=== PATIENT | female | born 1940 | race Asian ===

== ENCOUNTER 2018-08-27 05:13 | Day surgery (SDC) | payer BC ==
[2018-08-23 14:55] VITALS: BMI 22.1
[2018-08-27] MEDS ORDERED: ACETAMINOPHEN 1000 MG/100 ML VIAL (NON FORMULARY) IVPB ONE (12:49)
[2018-08-27] MEDS ORDERED: MIDAZOLAM HCL 2 MG/2 ML SINGLE DOSE VIAL ONE (12:53)
[2018-08-27] MEDS ORDERED: ceFAZolin SODIUM 1 GM VIAL IVPB ONE (12:54)
[2018-08-27] MEDS ORDERED: DEXTROSE 5%-0.45% SALINE 1,000 ML IV SCH (13:00)
[2018-08-27] MEDS ORDERED: IBUPROFEN 800 MG/8 ML IJ IVPB SCH (13:00)
[2018-08-27] MEDS ORDERED: KETOROLAC TROMETHAMINE 30 MG/1 ML VIAL ONE (13:17)
--- NOTE | 2018-08-27 15:37 | OP ---
DATE OF OPERATION: 08/27/2018 PREOPERATIVE DIAGNOSIS: Left renal calculus. POSTOPERATIVE DIAGNOSIS: Left renal calculus. PROCEDURE: Left extracorporeal shockwave lithotripsy. SURGEON: Chan Lainez MD ANESTHESIA: MAC. FINDINGS: A 1.6-cm stone, midpole, left kidney. PREOPERATIVE INDICATIONS: Patient a 78-year-old female who has cluster of stones in the left kidney measuring a total of 1.6 cm. She comes repair in the OR. DESCRIPTION OF PROCEDURE: Patient was brought to the OR, placed on the table in supine position, given general anesthesia and IV antibiotics. The stone was localized on fluoroscopy and ultrasound. The unit was then placed to optimally break the stone. shocks were applied to the kidney. Patient tolerated the procedure well. She was woken up. CHAN LAINEZ M.D. [id number]
[2018-08-27 15:44] VITALS: PULSE 72
[2018-08-27 15:49] VITALS: BP 140/66; TEMP 98
== END 2018-08-27 15:00 | disposition home or self-care (01) ==
LOC: JASU-SURG 05:13
PROVIDERS: ATTEND Urology
PROC: 0TF4XZZ Fragmentation in Left Kidney Pelvis, External Approach (ICD-10-PCS; principal; 2018-08-27 12:30)
DX: N20.0 Calculus of kidney (principal); I10 Essential (primary) hypertension; E11.9 Type 2 diabetes mellitus without complications; Z79.84 Long term (current) use of oral hypoglycemic drugs
CPT/HCPCS: 82962

== ENCOUNTER 2018-09-02 10:48 | Inpatient (IN) | payer BC, OTHER ==
--- NOTE | 2018-09-02 11:23 | PDOC ---
History of Present Illness - General Chief Complaint: SIRS, Suspected/Possible Stated Complaint: FEVER Time Seen by Provider: 09/02/18 11:23 History Source: Patient - History of Present Illness Initial Comments: 09/02/18 11:32 The patient is a 78 year old female with a PMH of NIDDM and palpitations who presents to our ED c/o fever and diarrhea. Patient states her fever has been presents since 08/28 following a lithotripsy procedure on 08/27. States her thermometer hasn't been working so she is unsure of her exact temperature. Has been intermittently taking Tylenol for fever. Also c/o 2 day h/o watery diarrhea. States she has 3-4 non-watery bowel movements. States she was prescribed Bactrim s/p lithotripsy which she started taking on 08/30. 10 point ROS is negative including no fevers/chills, chest pain, shortness of breath abdominal pain, dysuria/hematuria, numbness/tingling. Allergy: Floroquinolones (hives) Surgical: hysterectomy, appendectomy, cataracts Social: denies toxic habits PMD: Dr. Jim Park Past History - Past Medical History Allergies/Adverse Reactions: Allergies Allergy/AdvReac Type Severity Reaction Status Date / Time levofloxacin [From Levaquin] Allergy Intermediate Hives Verified 09/02/18 11:06 Home Medications: Ambulatory Orders Propranolol HCl 10 mg PO BID 09/06/15 Rosuvastatin Calcium [Crestor] 5 mg PO DAILY 09/06/15 Lutein 20 mg PO DAILY PRN 02/11/16 Metformin HCl [Glucophage] 500 mg PO BID 08/23/18 Sulfamethoxazole/Trimethoprim [Bactrim Ds Tablet] 1 each PO BID #20 tablet 08/29 Anemia: No Asthma: No Cardiac Disorders: Yes (PALPITATIONS) CVA: No COPD: No Diabetes: Yes (NIDDM) GI Disorders: No Disorders: Yes (KIDNEY STONE) HTN: Yes Hypercholesterolemia: Yes Kidney Stones: Yes Liver Disease: No Seizures: No Thyroid Disease: No - Surgical History Abdominal Surgery: No Appendectomy: Yes Cardiac Surgery: No Cholecystectomy: No Lung Surgery: No Neurologic Surgery: No Orthopedic Surgery: No - Suicide/Smoking/Psychosocial Hx Smoking History: Never smoked Have you smoked in the past 12 months: No Hx Alcohol Use: No Drug/Substance Use Hx: No Substance Use Type: None Review of Systems - Review of Systems Constitutional: Yes: Fever. No: Chills HEENTM: No: Blurred Vision, Double Vision Respiratory: No: Cough, Orthopnea, Shortness of Breath, Hemoptysis Cardiac (ROS): No: Chest Pain, Lightheadedness, Palpitations, Syncope ABD/GI: Yes: Diarrhea. No: Constipated, Nausea, Vomiting, Abdominal cramping : No: Burning, Dysuria *Physical Exam - Vital Signs Last Vital Signs Temp Pulse Resp BP Pulse Ox 99.1 F 101 H 16 166/70 99 09/02/18 11:06 09/02/18 11:06 09/02/18 11:06 09/02/18 11:06 09/02/18 11:06 - Physical Exam General Appearance: Yes: Nourished, Thin HEENT: positive: Normal Voice, Hearing Grossly Normal Neck: positive: Trachea midline, Supple Respiratory/Chest: positive: Lungs Clear, Normal Breath Sounds. negative: Labored Respiration, Rapid RR, Crackles, Wheezing Cardiovascular: positive: S1, S2. negative: Edema, JVD Vascular Pulses: Dorsalis-Pedis (R): 2+, Doralis-Pedis (L): 2+ Gastrointestinal/Abdominal: positive: Normal Bowel Sounds, Soft, Other (LLQ TTP on deep palpation.) Musculoskeletal: negative: CVA Tenderness (R), CVA Tenderness (L) Extremity: positive: Normal Capillary Refill, Normal Inspection Integumentary: positive: Normal Color, Dry, Warm Neurologic: positive: Fully Oriented, Alert ED Treatment Course - LABORATORY CBC & Chemistry Diagram: 09/02/18 12:11 09/02/18 12:11 Medical Decision Making - Medical Decision Making 09/02/18 11:49 89 year old female c/o subjective fever and diarrhea. H/o recent Bactrim use. Tachycardic (HR 101) @ presentation, other VS unremarkable. Given patient's clinical history and possible clinical course, adult ED sepsis work-up initiated. Frontal diagnosis: C. Diff colitis, other infectious colitis, less likely SBO, mesenteric ischemia. Will also obtain CT abdomen as patient has some roving TTP on deep palpation of lower abdominal quadrants and C Diff stool toxin.. Isolation precautions in place. 09/02/18 13:22 Lab significant for Na 126 Cr 2.7 (last Cr 1.1 as per EMR) IV NS hanging @ bedside; repeat Na @ 4 hour sinan 09/02/18 13:34 Case d/w Dr. Chandler (contact centre supervisor) - accepts patient for inpatient admission. Requests Dr. Melendez (ID) 09/02/18 16:04 Patient @ CT 09/02/18 16:52 Repeat CMP pending 09/02/18 17:14 CT abdomen shows 3 x 0.5 cm L obstructing calculus w/hydronephrosis, R hydro ( no obstructing stones), no SBO Patient resting comfortably, VSS *DC/Admit/Observation/Transfer Diagnosis at time of Disposition: Diarrhea - Discharge Dispostion Condition at time of disposition: Fair Decision to Admit order: Yes - Referrals - Patient Instructions - Post Discharge Activity
--- NOTE | 2018-09-02 11:28 | PDOC ---
Attending Attestation - HPI HPI: 09/02/18 14:08 The patient is a 78 year old female with a past medical history of recurrent renal stones, diabetes, palpitations, hysterectomy, appendectomy, and cataracts who presents to the emergency department for evaluation of fever and diarrhea. Patient reports persistent fever since her discharge after having a lithotripsy procedure on 08/27. She reports her doctor prescribed Bactrim the following day which result in symptoms of diarrhea. The patient denies chest pain, shortness of breath, headache, and dizziness. - Physicial Exam PE: 09/02/18 14:12 Vitals: Triage Vital signs reviewed General Appearance: no acute distress, well nourished well developed, Head: Atraumatic, normocephalic Neck: Supple Chest Wall: Nontender Cardiac: Regular rate and rhythm, no murmurs, no rubs, no gallops, Lungs: Clear to auscultation bilateral, good air movement bilaterally, Abdomen: (+)mild left lower quadrant tenderness to palpation. Extremities: Full range of motion to all extremities, no cyanosis, clubbing, or edema Skin: Warm and dry, no rashes or lesions, no petechiae Psych: normal mood, normal affect - Medical Decision Making 09/02/18 14:11 The patient is a 78 year old female with a past medical history of recurrent renal stones, diabetes, palpitations, hysterectomy, appendectomy, and cataracts who presents to the emergency department for evaluation of fever and diarrhea. Plan: CT abdomen Fluids <Barb Ambrose - Last Filed: 09/02/18 14:08> - Resident Resident Name: Yeimi Mosqueda - ED Attending Attestation I have performed the following: I have examined & evaluated the patient, The case was reviewed & discussed with the resident, I agree w/resident's findings & plan, Exceptions are as noted - Medical Decision Making Given left-sided abdominal pain a CAT scan abdomen pelvis was ordered. CT demonstrates kidney stone Given evidence of acute kidney injury and nephrolithiasis most likely obstruction with renal injury We will hydrate admit the hospital urology consult for further management. <Tu Thorpe - Last Filed: 09/06/18 02:01> Attestations - Attestations Documentation prepared by Barb Ambrose, acting as medical unit secretary for Tu Thorpe MD. <Barb Ambrose - Last Filed: 09/02/18 14:08>
[2018-09-02 12:22] LABS: BASO % 0.1 % (0-2.0); EOS % 0.1 % (0-4.5); LYMPH % 7.5 % (8-40); MCH 28.6 pg (25.7-33.7); MCHC 33.3 g/dl (32.0-36.0); MEAN PLT VOLUME 8.4 fl (7.5-11.1); MONO % 11.4 % (3.8-10.2); NEUT % 80.9 % (42.8-82.8); PLATELET COUNT 211 K/MM3 (134-434); RBC 3.84 M/mm3 (3.60-5.2); RDW 13.7 % (11.6-15.6); WHITE BLOOD COUNT 10.3 K/mm3 (4.0-10.0)
[2018-09-02 12:34] LABS: URINE APPEARANCE CLEAR; URINE BILIRUBIN NEGATIVE (<2.0 mg/dL); URINE COLOR STRAW; URINE GLUCOSE (UA) 1+ (NEGATIVE); URINE KETONE TRACE (NEGATIVE); URINE LEUK ESTERASE NEGATIVE (NEGATIVE); URINE NITRITE NEGATIVE (NEGATIVE); URINE PROTEIN NEGATIVE (NEGATIVE); URINE UROBILINOGEN NEGATIVE mg/dL (0.2-1.0)
[2018-09-02 12:36] LABS: INR 1.08 (0.83-1.09); PROTHROMBIN TIME (PATIENT) 12.8 SEC (9.7-13.0)
[2018-09-02 12:38] LABS: ACTIVATED PTT 32.4 SECONDS (25.2-36.5)
[2018-09-02 12:54] LABS: ALBUMIN 3.2 g/dl (3.4-5.0); ALK PHOS 105 U/L (45-117); ANION GAP 15 MMOL/L (8-16); BILIRUBIN,TOTAL 0.4 mg/dL (0.2-1); BLOOD UREA NITROGEN 39 mg/dL (7-18); CALCIUM 8.1 mg/dL (8.5-10.1); CHLORIDE 91 mmol/L (98-107); CO2 20 mmol/L (21-32); CREATININE 2.7 mg/dL (0.55-1.3); GLUCOSE,RANDOM 167 mg/dL (74-106); POTASSIUM 4.4 mmol/L (3.5-5.1); SGOT/AST 13 U/L (15-37); SGPT/ALT 19 U/L (13-61); SODIUM 126 mmol/L (136-145); TOT PROT 7.4 g/dl (6.4-8.2)
[2018-09-02] MEDS ORDERED: SODIUM CHLORIDE 0.9% 500 ML INFUS.BAG IV ONE ×2 (13:22→13:44)
--- NOTE | 2018-09-02 15:04 | EKG ---
Test Reason : Blood Pressure : / mmHG Vent. Rate : 099 BPM Atrial Rate : 099 BPM P-R Int : 148 ms QRS Dur : 074 ms QT Int : 358 ms P-R-T Axes : 019 060 049 degrees QTc Int : 459 ms NORMAL SINUS RHYTHM POSSIBLE LEFT ATRIAL ENLARGEMENT BORDERLINE ECG WHEN COMPARED WITH ECG OF 16-AUG-2018 13:52, NO SIGNIFICANT CHANGE WAS FOUND Confirmed by FRANCA DOUGLAS MD ([id number]) on 09/02/2018 3:04:43 PM Referred By: Confirmed By:FRANCA DOUGLAS MD
--- NOTE | 2018-09-02 15:26 | CON.ID ---
Consult Consult Specialty:: infectious diseases Reason for Consultation:: weakness,fever,dirrhoea,leukocytosis - History of Present Illness Chief Complaint: weakness,fever History of Present Illness: 78 year old female with a PMH of NIDDM and palpitations who presents to ED c/o fever and diarrhea. Patient states her fever has been presents since 08/28 following a lithotripsy procedure on 08/27. States her thermometer hasn't been working so she is unsure of her exact temperature. Has been intermittently taking Tylenol for fever. Also c/o 2 day h/o watery diarrhea. States she has 3-4 non-watery bowel movements. States she was prescribed Bactrim s/p lithotripsy which she started taking on 08/30. 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 History of Recent Travel: No Home Medications - Allergies Allergies/Adverse Reactions: Allergies Allergy/AdvReac Type Severity Reaction Status Date / Time levofloxacin [From Levaquin] Allergy Intermediate Hives Verified 09/02/18 11:06 - Home Medications Home Medications: Ambulatory Orders Propranolol HCl 10 mg PO BID 09/06/15 Rosuvastatin Calcium [Crestor] 5 mg PO DAILY 09/06/15 Lutein 20 mg PO DAILY PRN 02/11/16 Metformin HCl [Glucophage] 500 mg PO BID 08/23/18 Sulfamethoxazole/Trimethoprim [Bactrim Ds Tablet] 1 each PO BID #20 tablet 08/29 Family Disease History - Family Disease History Family Disease History: Other: Brother (Unknown cause?) Review of Systems - Review of Systems Constitutional: reports: Fever HENT: reports: No Symptoms Neck: reports: No Symptoms Cardiovascular: reports: No Symptoms Respiratory: reports: No Symptoms Gastrointestinal: reports: No Symptoms Genitourinary: reports: No Symptoms Musculoskeletal: reports: No Symptoms Integumentary: reports: No Symptoms Neurological: reports: No Symptoms Endocrine: reports: No Symptoms Hematology/Lymphatic: reports: No Symptoms Psychiatric: reports: No Symptoms Physical Exam Vital Signs: Vital Signs Temperature 98.9 F 09/02/18 12:11 Pulse Rate 103 H 09/02/18 14:20 Respiratory Rate 20 09/02/18 14:20 Blood Pressure 153/72 09/02/18 14:20 O2 Sat by Pulse Oximetry (%) 100 09/02/18 14:20 Constitutional: Yes: Well Nourished, No Distress, Calm Eyes: Yes: Conjunctiva Clear HENT: Yes: Atraumatic, Normocephalic Neck: Yes: Supple, Trachea Midline Cardiovascular: Yes: Regular Rate and Rhythm Respiratory: Yes: Regular, CTA Bilaterally Gastrointestinal: Yes: Normal Bowel Sounds, Soft Musculoskeletal: Yes: WNL Extremities: Yes: WNL Neurological: Yes: Alert, Oriented Psychiatric: Yes: Alert, Oriented Labs: CBC, BMP 09/02/18 12:11 09/02/18 12:11 Imaging - Results Chest X-ray: Report Reviewed, Image Reviewed Cat Scan: Report Reviewed, Image Reviewed Assessment/Plan Problem List - Problems (1) Diabetes Code(s): E11.9 - TYPE 2 DIABETES MELLITUS WITHOUT COMPLICATIONS (2) Fever Code(s): R50.9 - FEVER, UNSPECIFIED Qualifiers: Fever type: other (3) HTN (hypertension) Code(s): I10 - ESSENTIAL (PRIMARY) HYPERTENSION (4) Hyperlipemia Code(s): E78.5 - HYPERLIPIDEMIA, UNSPECIFIED 5 renal insufficiency plan will stop abx and watch her monitor creatinine hydration rest as per the team denies any dirrhoea
--- NOTE | 2018-09-02 15:35 | HP ---
Admitting History and Physical - Primary Care Physician PCP: Edwin Chandler - Admission History of Present Illness: 78 year old female with a PMH of NIDDM and palpitations who presents to our ED c /o fever and diarrhea. Patient states her fever has been presents since 08/28 following a lithotripsy procedure on 08/27. States her thermometer hasn't been working so she is unsure of her exact temperature. Has been intermittently taking Tylenol for fever. Also c/o 2 day h/o watery diarrhea. States she has 3-4 non-watery bowel movements. States she was prescribed Bactrim s/p lithotripsy which she started taking on 08/30. 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 History of Recent Travel: No Home Medications - Allergies Allergies/Adverse Reactions: Allergies Allergy/AdvReac Type Severity Reaction Status Date / Time levofloxacin [From Levaquin] Allergy Intermediate Hives Verified 09/02/18 11:06 - Home Medications Home Medications: Ambulatory Orders Propranolol HCl 10 mg PO BID 09/06/15 Rosuvastatin Calcium [Crestor] 5 mg PO DAILY 09/06/15 Lutein 20 mg PO DAILY PRN 02/11/16 Metformin HCl [Glucophage] 500 mg PO BID 08/23/18 Sulfamethoxazole/Trimethoprim [Bactrim Ds Tablet] 1 each PO BID #20 tablet 08/29 Family Disease History - Family Disease History Family Disease History: Other: Brother (Unknown cause?) Physical Examination Vital Signs: Vital Signs Temperature 98.9 F 09/02/18 12:11 Pulse Rate 103 H 09/02/18 14:20 Respiratory Rate 20 09/02/18 14:20 Blood Pressure 153/72 09/02/18 14:20 O2 Sat by Pulse Oximetry (%) 100 09/02/18 14:20 Constitutional: Yes: No Distress HENT: Yes: Atraumatic Neck: Yes: Supple Cardiovascular: Yes: Regular Rate and Rhythm Respiratory: Yes: CTA Bilaterally Gastrointestinal: Yes: Normal Bowel Sounds Extremities: Yes: WNL Edema: No Neurological: Yes: Alert, Oriented Labs: CBC, BMP 09/02/18 12:11 09/02/18 12:11 Problem List - Problems (1) Diabetes Assessment/Plan: elevated cr and low gfr have to hold metformin check bgms.. Code(s): E11.9 - TYPE 2 DIABETES MELLITUS WITHOUT COMPLICATIONS (2) Fever Code(s): R50.9 - FEVER, UNSPECIFIED Qualifiers: Fever type: other (3) HTN (hypertension) Code(s): I10 - ESSENTIAL (PRIMARY) HYPERTENSION (4) Hyperlipemia Assessment/Plan: on meds Code(s): E78.5 - HYPERLIPIDEMIA, UNSPECIFIED Assessment/Plan Laboratory Tests 09/02/18 09/02/18 09/02/18 12:11 12:11 12:11 WBC 10.3 H RBC 3.84 Hgb 11.0 Hct 33.0 D MCV 86.0 MCH 28.6 MCHC 33.3 RDW 13.7 Plt Count 211 D MPV 8.4 Absolute Neuts (auto) 8.3 H Neutrophils % 80.9 Lymphocytes % 7.5 L D Monocytes % 11.4 H Eosinophils % 0.1 D Basophils % 0.1 Nucleated RBC % 0 PT with INR 12.80 INR 1.08 PTT (Actin FS) 32.4 Sodium Potassium Chloride Carbon Dioxide Anion Gap BUN Creatinine Creat Clearance w eGFR Random Glucose Lactic Acid Calcium Total Bilirubin AST ALT Alkaline Phosphatase Troponin I Total Protein Albumin Urine Color Straw Urine Appearance Clear Urine pH 5.0 Ur Specific [place] 1.011 Urine Protein Negative Urine Glucose (UA) 1+ H Urine Ketones Trace H Urine Blood Negative Urine Nitrite Negative Urine Bilirubin Negative Urine Urobilinogen Negative Ur Leukocyte Esterase Negative 09/02/18 09/02/18 09/02/18 12:11 12:11 12:11 WBC RBC Hgb Hct MCV MCH MCHC RDW Plt Count MPV Absolute Neuts (auto) Neutrophils % Lymphocytes % Monocytes % Eosinophils % Basophils % Nucleated RBC % PT with INR INR PTT (Actin FS) Sodium 126 L Potassium 4.4 Chloride 91 L Carbon Dioxide 20 L Anion Gap 15 BUN 39 H Creatinine 2.7 H Creat Clearance w eGFR 17.13 Random Glucose 167 H Lactic Acid 1.0 Calcium 8.1 L Total Bilirubin 0.4 AST 13 L ALT 19 Alkaline Phosphatase 105 Troponin I < 0.02 Total Protein 7.4 Albumin 3.2 L Urine Color Urine Appearance Urine pH Ur Specific [place] Urine Protein Urine Glucose (UA) Urine Ketones Urine Blood Urine Nitrite Urine Bilirubin Urine Urobilinogen Ur Leukocyte Esterase Active Medications Generic Name Dose Route Start Last Admin Trade Name Freq PRN Reason Stop Dose Admin Acetaminophen 650 mg 09/02/18 15:36 Tylenol - PO Q6H PRN FEVER Non-Formulary Medication 20 mg 09/02/18 15:37 Lutein [Lutein] PO DAILY PRN vitamin for the eyes Propranolol HCl 10 mg 09/02/18 22:00 Inderal - PO BID ALESSANDRA Rosuvastatin Calcium 5 mg 09/02/18 22:00 Crestor - PO HS ALESSANDRA
[2018-09-02] MEDS ORDERED: PATIENT'S OWN MEDICATION (NON-FORMULARY) (Lutein [Lutein] 20 MG) PO PRN (15:37)
[2018-09-02 18:32] LABS: ALBUMIN 2.9 g/dl (3.4-5.0); ALK PHOS 99 U/L (45-117); ANION GAP 13 MMOL/L (8-16); BILIRUBIN,TOTAL 0.4 mg/dL (0.2-1); BLOOD UREA NITROGEN 34 mg/dL (7-18); CALCIUM 7.4 mg/dL (8.5-10.1); CHLORIDE 99 mmol/L (98-107); CO2 19 mmol/L (21-32); CREATININE 2.6 mg/dL (0.55-1.3); GLUCOSE,RANDOM 149 mg/dL (74-106); POTASSIUM 4.4 mmol/L (3.5-5.1); SGOT/AST 12 U/L (15-37); SGPT/ALT 17 U/L (13-61); SODIUM 131 mmol/L (136-145); TOT PROT 6.9 g/dl (6.4-8.2)
[2018-09-02] MEDS: SODIUM CHLORIDE 1,000 ML IV SCH (20:28)
[2018-09-02] MEDS ORDERED: metFORMIN HCL 500 MG TABLET (FP) PO SCH (22:00)
[2018-09-02] MEDS: ROSUVASTATIN CA 5 MG TABLET (FP) PO SCH (23:31)
[2018-09-03 06:02] LABS: BASO % 0.2 % (0-2.0); EOS % 0.4 % (0-4.5); HEMATOCRIT 30.6 % (32.4-45.2); HEMOGLOBIN 10.2 GM/dL (10.7-15.3); LYMPH % 7.5 % (8-40); MCHC 33.5 g/dl (32.0-36.0); MEAN CELL VOLUME 86.7 fl (80-96); MEAN PLT VOLUME 7.8 fl (7.5-11.1); MONO % 11.5 % (3.8-10.2); NEUT % 80.4 % (42.8-82.8); PLATELET COUNT 213 K/MM3 (134-434); RBC 3.53 M/mm3 (3.60-5.2); RDW 13.8 % (11.6-15.6); WHITE BLOOD COUNT 10.4 K/mm3 (4.0-10.0)
[2018-09-03 06:29] LABS: ALBUMIN 2.8 g/dl (3.4-5.0); ALK PHOS 94 U/L (45-117); ANION GAP 11 MMOL/L (8-16); BILIRUBIN,TOTAL 0.4 mg/dL (0.2-1); BLOOD UREA NITROGEN 31 mg/dL (7-18); CALCIUM 7.6 mg/dL (8.5-10.1); CHLORIDE 104 mmol/L (98-107); CO2 18 mmol/L (21-32); CREATININE 2.5 mg/dL (0.55-1.3); GLUCOSE,RANDOM 131 mg/dL (74-106); POTASSIUM 4.5 mmol/L (3.5-5.1); SGOT/AST 15 U/L (15-37); SGPT/ALT 19 U/L (13-61); SODIUM 133 mmol/L (136-145); TOT PROT 6.6 g/dl (6.4-8.2)
[2018-09-03] MEDS: SODIUM CHLORIDE 1,000 ML IV SCH ×2 (10:34→21:36)
--- NOTE | 2018-09-03 12:13 | PN ---
Progress Note, Physician History of Present Illness: patient stable doing well no new issues feels much better no dirrhoea - Current Medication List Current Medications: Active Medications Acetaminophen (Tylenol -) 650 mg PO Q6H PRN PRN Reason: FEVER Sodium Chloride (Normal Saline -) 1,000 mls @ 75 mls/hr IV [facility] Last Admin: 09/03/18 10:34 Dose: 75 mls/hr Non-Formulary Medication (Lutein [Lutein]) 20 mg PO DAILY PRN PRN Reason: vitamin for the eyes Propranolol HCl (Inderal -) 10 mg PO BID [facility] Last Admin: 09/03/18 10:34 Dose: 10 mg Rosuvastatin Calcium (Crestor -) 5 mg PO HS [facility] Last Admin: 09/02/18 23:31 Dose: 5 mg - Objective Vital Signs: Vital Signs Temperature 98.9 F 09/03/18 09:07 Pulse Rate 100 H 09/03/18 09:07 Respiratory Rate 20 09/03/18 09:07 Blood Pressure 138/75 09/03/18 09:07 O2 Sat by Pulse Oximetry (%) 100 09/03/18 04:47 Constitutional: Yes: No Distress, Calm Cardiovascular: Yes: Regular Rate and Rhythm Respiratory: Yes: Regular, CTA Bilaterally Gastrointestinal: Yes: Normal Bowel Sounds, Soft Musculoskeletal: Yes: WNL Extremities: Yes: WNL Neurological: Yes: Alert, Oriented Psychiatric: Yes: Alert, Oriented Labs: CBC, BMP 09/03/18 05:30 09/03/18 05:30 INR, PTT INR 1.08 (0.83-1.09) 09/02/18 12:11 - ....Imaging Cat Scan: Report Reviewed, Image Reviewed Assessment/Plan Problem List - Problems (1) Diabetes Code(s): E11.9 - TYPE 2 DIABETES MELLITUS WITHOUT COMPLICATIONS (2) Fever Code(s): R50.9 - FEVER, UNSPECIFIED Qualifiers: Fever type: other (3) HTN (hypertension) Code(s): I10 - ESSENTIAL (PRIMARY) HYPERTENSION (4) Hyperlipemia Code(s): E78.5 - HYPERLIPIDEMIA, UNSPECIFIED 5 renal insufficiency plan will continue monitoring off of abx cr rending down hydration rest as per the team denies any dirrhoea
--- NOTE | 2018-09-03 12:51 | CON.GU ---
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 History of Recent Travel: No Home Medications - Allergies Allergies/Adverse Reactions: Allergies Allergy/AdvReac Type Severity Reaction Status Date / Time levofloxacin [From Levaquin] Allergy Intermediate Hives Verified 09/02/18 11:06 - Home Medications Home Medications: Ambulatory Orders Propranolol HCl 10 mg PO BID 09/06/15 Rosuvastatin Calcium [Crestor] 5 mg PO DAILY 09/06/15 Lutein 20 mg PO DAILY PRN 02/11/16 Metformin HCl [Glucophage] 500 mg PO BID 08/23/18 Sulfamethoxazole/Trimethoprim [Bactrim Ds Tablet] 1 each PO BID #20 tablet 08/29 Family Disease History - Family Disease History Family Disease History: Other: Brother (Unknown cause?) Physical Exam- Vital Signs: Vital Signs Temperature 98.9 F 09/03/18 09:07 Pulse Rate 100 H 09/03/18 09:07 Respiratory Rate 20 09/03/18 09:07 Blood Pressure 138/75 09/03/18 09:07 O2 Sat by Pulse Oximetry (%) 100 09/03/18 04:47 Constitutional: Yes: Well Nourished, No Distress Eyes: Yes: Conjunctiva Clear HENT: Yes: WNL Respiratory: Yes: WNL Renal/: Yes: CVA Tenderness - Left External Genitalia: Yes: WNL, Vulvitis Musculoskeletal: Yes: WNL Extremities: Yes: WNL Labs: CBC, BMP 09/03/18 05:30 09/03/18 05:30
--- NOTE | 2018-09-03 12:57 | CON.CARD ---
Consult Consult Specialty:: Cardiology Referred by:: Dr. Chandler Reason for Consultation:: Cardiac evaluation - History of Present Illness Chief Complaint: Fever History of Present Illness: Patient is a 78 year old female of Pas[place] descent with underlying history of HTN, hypercholesterolemia and diabetes mellitus who presents with fever. She recently had lithotripsy for left kidney stone. She complains of palpitation for which she takes Inderal. She also complains of diarrhea. She denies shortness of breath or chest pain. She denies paroxysmal nocturnal dyspnea or orthopnea. She denies nausea or vomiting. She denies headache or lightheadedness. She is awake and alert and appears comfortable at this time. Denies prior syncope. 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 History of Recent Travel: No Home Medications - Allergies Allergies/Adverse Reactions: Allergies Allergy/AdvReac Type Severity Reaction Status Date / Time levofloxacin [From Levaquin] Allergy Intermediate Hives Verified 09/02/18 11:06 - Home Medications Home Medications: Ambulatory Orders Propranolol HCl 10 mg PO BID 09/06/15 Rosuvastatin Calcium [Crestor] 5 mg PO DAILY 09/06/15 Lutein 20 mg PO DAILY PRN 02/11/16 Metformin HCl [Glucophage] 500 mg PO BID 08/23/18 Sulfamethoxazole/Trimethoprim [Bactrim Ds Tablet] 1 each PO BID #20 tablet 08/29 Family Disease History - Family Disease History Family Disease History: Other: Brother (Unknown cause?) Review of Systems - Review of Systems Constitutional: reports: Chills, Fever Cardiovascular: reports: Palpitations. denies: Chest Pain, Shortness of Breath Respiratory: denies: Cough, Hemoptysis, Orthopnea, PND, SOB, SOB on Exertion Gastrointestinal: denies: Abdominal Pain, Constipation, Diarrhea, Melena, Nausea , Rectal Bleeding, Vomiting Genitourinary: denies: Dysuria, Hematuria Musculoskeletal: denies: Back Pain, Joint Pain Neurological: denies: Dizziness, Headache, Seizure, Syncope Vital Signs: Vital Signs Temperature 98.9 F 09/03/18 09:07 Pulse Rate 100 H 09/03/18 09:07 Respiratory Rate 20 09/03/18 09:07 Blood Pressure 138/75 09/03/18 09:07 O2 Sat by Pulse Oximetry (%) 100 09/03/18 04:47 Eyes: Yes: PERRL HENT: Yes: Atraumatic Neck: Yes: Supple Respiratory: Yes: CTA Bilaterally Gastrointestinal: Yes: Normal Bowel Sounds, Soft. No: Tenderness Cardiovascular: Yes: Regular Rate and Rhythm JVD: No Carotid Bruit: No PMI: Non-Displaced Heart Sounds: Yes: S1, S2 Murmur: No: Systolic Murmur, Diastolic Murmur Edema: No - Other Data Labs, Other Data: CBC, BMP 09/03/18 05:30 09/03/18 05:30 INR, PTT INR 1.08 (0.83-1.09) 09/02/18 12:11 Troponin, BNP 09/02/18 12:11 Troponin I < 0.02 Imaging - Results Chest X-ray: Report Reviewed (Unremarkable) EKG: Report Reviewed (NSR with LA enlargement) Assessment/Plan 1. Palpitations 2. HTN 3. Hypercholesterolemia 4. DM 5. Nephrolithiasis s/p lithotripsy 6. Acute on CKD 7. Hyponatremia PLAN: 1. Patient was advised to continue with current medical therapy including Inderal and Rosuvastatin 2. Echocardiography to assess LV/RV and valvular function 3. Hydration 4. Monitor renal function and electrolytes. Nephrology consultation 5. input noted Further plans are to follow Peter Beard MD
--- NOTE | 2018-09-03 16:03 | ECHO ---
Name: JARVIS ADAIR Exam:Adult Echocardiogram Study Date: 09/03/2018 02:42 PM Age: 78 yrs Reason For Study: Palpitations Height: 63 in Weight: 124 lb BSA: 1.6 m2 MMode/2D Measurements & Calculations IVSd: 0.85 cm Ao root diam: 2.7 cm LVIDd: 4.1 cm LA dimension: 3.5 cm LVIDs: 3.0 cm LVPWd: 0.78 cm EDV(Teich): 73.8 ml TAPSE: 1.8 cm ESV(Teich): 34.9 ml RV S Piyush: 18.7 cm/sec Doppler Measurements & Calculations MV E max piyush: 54.3 cm/sec Ao V2 max: 118.4 cm/sec MV A max piyush: 87.9 cm/sec Ao max P.6 mmHg MV E/A: 0.62 LV V1 max P.4 mmHg MR max piyush: 519.5 cm/sec LV V1 max: 77.1 cm/sec MR max P.2 mmHg TR max piyush: 269.3 cm/sec PI end-d piyush: 126.2 cm/sec TR max P.3 mmHg Med Peak E' Ipyush: 7.0 cm/sec Med E/e': 7.8 Lat Peak E' Piyush: 4.2 cm/sec Lat E/e': 13.0 Left Ventricle The left ventricular size, thickness and function are normal. LVEF = 60%. The transmitral spectral Do ppler flow pattern is suggestive of impaired LV relaxation. Right Ventricle The right ventricle is normal in size and function. Atria Normal left and right atrial size and function. Mitral Valve There is mild mitral valve thickening. There is mild mitral regurgitation. The mitral regurgitant jet is eccentrically directed. Tricuspid Valve The tricuspid valve is not well visualized, but is grossly normal. There is trace tricuspid regurgita tion. There is mild pulmonary hypertension. Right ventricular systolic pressure is elevated at 39 mmhg. Aortic Valve There is mild aortic sclerosis.;. Pulmonic Valve The pulmonic valve is not well seen, but is grossly normal. Mild pulmonic valvular regurgitation. Great Vessels The aortic root is normal size. Pericardium/Pleura There is no pericardial effusion. Interpretation Summary The left ventricular size, thickness and function are normal. LVEF = 60%. The right ventricle is normal in size and function. Normal left and right atrial size and function. There is mild aortic sclerosis.; There is mild mitral valve thickening. There is mild mitral regurgitation. There is mild pulmonary hypertension. Right ventricular systolic pressure is elevated at 39 mmhg. MD Megan Marinelli 09/03/2018 04:02 PM
--- NOTE | 2018-09-03 16:41 | PN ---
Progress Note, Physician History of Present Illness: feeling good - Current Medication List Current Medications: Active Medications Acetaminophen (Tylenol -) 650 mg PO Q6H PRN PRN Reason: FEVER Sodium Chloride (Normal Saline -) 1,000 mls @ 75 mls/hr IV [facility] Last Admin: 09/03/18 10:34 Dose: 75 mls/hr Non-Formulary Medication (Lutein [Lutein]) 20 mg PO DAILY PRN PRN Reason: vitamin for the eyes Propranolol HCl (Inderal -) 10 mg PO BID [facility] Last Admin: 09/03/18 10:34 Dose: 10 mg Rosuvastatin Calcium (Crestor -) 5 mg PO HS [facility] Last Admin: 09/02/18 23:31 Dose: 5 mg Trimethoprim/Sulfamethoxazole (Bactrim Ds -) 1 each PO BID [facility] - Objective Vital Signs: Vital Signs Temperature 99.3 F 09/03/18 15:06 Pulse Rate 94 H 09/03/18 15:06 Respiratory Rate 20 09/03/18 15:06 Blood Pressure 164/80 09/03/18 15:06 O2 Sat by Pulse Oximetry (%) 100 09/03/18 04:47 Constitutional: Yes: No Distress HENT: Yes: Atraumatic Neck: Yes: Supple Cardiovascular: Yes: Regular Rate and Rhythm Respiratory: Yes: CTA Bilaterally Gastrointestinal: Yes: Normal Bowel Sounds Extremities: Yes: WNL Edema: No Peripheral Pulses WNL: Yes Neurological: Yes: Alert, Oriented Labs: CBC, BMP 09/03/18 05:30 09/03/18 05:30 INR, PTT INR 1.08 (0.83-1.09) 09/02/18 12:11 Problem List - Problems (1) Diabetes Assessment/Plan: elevated cr and low gfr have to hold metformin check bgms.. Code(s): E11.9 - TYPE 2 DIABETES MELLITUS WITHOUT COMPLICATIONS (2) Fever Assessment/Plan: afebrile Code(s): R50.9 - FEVER, UNSPECIFIED Qualifiers: Fever type: other (3) HTN (hypertension) Code(s): I10 - ESSENTIAL (PRIMARY) HYPERTENSION Qualifiers: Hypertension type: essential hypertension Qualified Code(s): I10 - Essential (primary) hypertension (4) Hyperlipemia Assessment/Plan: on meds Code(s): E78.5 - HYPERLIPIDEMIA, UNSPECIFIED Qualifiers: Hyperlipidemia type: pure hypercholesterolemia Qualified Code(s): E78.00 - Pure hypercholesterolemia, unspecified; E78.0 - Pure hypercholesterolemia
[2018-09-03] MEDS: SULFAMETHOXAZOLE/TRIMETHOPRIM 800MG/160MG D.S. TABLET PO SCH (21:36)
[2018-09-03] MEDS: ROSUVASTATIN CA 5 MG TABLET (FP) PO SCH (21:36)
[2018-09-04] MEDS: SULFAMETHOXAZOLE/TRIMETHOPRIM 800MG/160MG D.S. TABLET PO SCH ×2 (09:31→21:26)
--- NOTE | 2018-09-04 10:43 | PN ---
Progress Note, Physician History of Present Illness: patient has developed a cold sore still feels a bit weak no other issues wbc was still on the higher side does nto feel too well running temp in 99 - Current Medication List Current Medications: Active Medications Acetaminophen (Tylenol -) 650 mg PO Q6H PRN PRN Reason: FEVER Sodium Chloride (Normal Saline -) 1,000 mls @ 75 mls/hr IV ASDIR [facility] Last Admin: 09/03/18 21:36 Dose: 75 mls/hr Ceftriaxone Sodium 1 gm/ (Dextrose) 100 mls @ 200 mls/hr IVPB DAILY [facility]; Protocol Non-Formulary Medication (Lutein [Lutein]) 20 mg PO DAILY PRN PRN Reason: vitamin for the eyes Propranolol HCl (Inderal -) 10 mg PO BID [facility] Last Admin: 09/04/18 09:31 Dose: 10 mg Rosuvastatin Calcium (Crestor -) 5 mg PO HS [facility] Last Admin: 09/03/18 21:36 Dose: 5 mg Trimethoprim/Sulfamethoxazole (Bactrim Ds -) 1 each PO BID [facility] Last Admin: 09/04/18 09:31 Dose: 1 each - Objective Vital Signs: Vital Signs Temperature 99.9 F H 09/04/18 08:44 Pulse Rate 105 H 09/04/18 08:44 Respiratory Rate 20 09/04/18 08:44 Blood Pressure 145/69 09/04/18 08:44 O2 Sat by Pulse Oximetry (%) 99 09/03/18 21:00 Constitutional: Yes: No Distress, Calm, Anxious HENT: Yes: Other (cold sore on left side oangle of mouth) Cardiovascular: Yes: Regular Rate and Rhythm Respiratory: Yes: Regular, CTA Bilaterally Gastrointestinal: Yes: Normal Bowel Sounds, Soft Musculoskeletal: Yes: WNL Extremities: Yes: WNL Neurological: Yes: Alert, Oriented Psychiatric: Yes: Alert, Oriented Labs: CBC, BMP 09/03/18 05:30 09/03/18 05:30 INR, PTT INR 1.08 (0.83-1.09) 09/02/18 12:11 Assessment/Plan Problem List - Problems (1) Diabetes Code(s): E11.9 - TYPE 2 DIABETES MELLITUS WITHOUT COMPLICATIONS (2) Fever Code(s): R50.9 - FEVER, UNSPECIFIED Qualifiers: Fever type: other (3) HTN (hypertension) Code(s): I10 - ESSENTIAL (PRIMARY) HYPERTENSION (4) Hyperlipemia Code(s): E78.5 - HYPERLIPIDEMIA, UNSPECIFIED 5 renal insufficiency plan i am going to empirically start patient on ceftriaxone and watch will check wbc tomorrow rest continue current mgmt patient stable
--- NOTE | 2018-09-04 11:18 | PN ---
Progress Note, Physician History of Present Illness: Afebrile, no flank pain, denies palpitations. - Current Medication List Current Medications: Active Medications Acetaminophen (Tylenol -) 650 mg PO Q6H PRN PRN Reason: FEVER Sodium Chloride (Normal Saline -) 1,000 mls @ 75 mls/hr IV ASDIR [facility] Last Admin: 09/03/18 21:36 Dose: 75 mls/hr Ceftriaxone Sodium 1 gm/ (Dextrose) 100 mls @ 200 mls/hr IVPB DAILY [facility]; Protocol Non-Formulary Medication (Lutein [Lutein]) 20 mg PO DAILY PRN PRN Reason: vitamin for the eyes Propranolol HCl (Inderal -) 10 mg PO BID [facility] Last Admin: 09/04/18 09:31 Dose: 10 mg Rosuvastatin Calcium (Crestor -) 5 mg PO HS [facility] Last Admin: 09/03/18 21:36 Dose: 5 mg Trimethoprim/Sulfamethoxazole (Bactrim Ds -) 1 each PO BID [facility] Last Admin: 09/04/18 09:31 Dose: 1 each - Objective Vital Signs: Vital Signs Temperature 99.9 F H 09/04/18 10:00 Pulse Rate 105 H 09/04/18 10:00 Respiratory Rate 20 09/04/18 10:00 Blood Pressure 145/69 09/04/18 10:00 O2 Sat by Pulse Oximetry (%) 99 09/03/18 21:00 Constitutional: Yes: No Distress, Calm Neck: Yes: Supple Cardiovascular: Yes: Regular Rate and Rhythm Respiratory: Yes: Regular, CTA Bilaterally Gastrointestinal: Yes: Normal Bowel Sounds, Soft Edema: No Labs: CBC, BMP 09/03/18 05:30 09/03/18 05:30 INR, PTT INR 1.08 (0.83-1.09) 09/02/18 12:11 Problem List - Problems (1) Hydronephrosis concurrent with and due to calculi of kidney and ureter Code(s): N13.2 - HYDRONEPHROSIS WITH RENAL AND URETERAL CALCULOUS OBSTRUCTION (2) Acute kidney injury Code(s): N17.9 - ACUTE KIDNEY FAILURE, UNSPECIFIED (3) HTN (hypertension) Code(s): I10 - ESSENTIAL (PRIMARY) HYPERTENSION Qualifiers: Hypertension type: essential hypertension Qualified Code(s): I10 - Essential (primary) hypertension (4) Hyperlipemia Code(s): E78.5 - HYPERLIPIDEMIA, UNSPECIFIED Qualifiers: Hyperlipidemia type: pure hypercholesterolemia Qualified Code(s): E78.00 - Pure hypercholesterolemia, unspecified; E78.0 - Pure hypercholesterolemia (5) Palpitations Code(s): R00.2 - PALPITATIONS (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 Palpitations 2. HTN 3. Hypercholesterolemia 4. DM 5. Nephrolithiasis s/p lithotripsy 6. Acute on CKD 7. Hyponatremia PLAN: 1. Continue Inderal 10 bid and Rosuvastatin 5 qhs 2. IV Hydration with monitor renal function and electrolytes. Nephrology consultation, metformin held in meantime 3. Empiric abx course for sepsis source
[2018-09-04] MEDS ORDERED: cefTRIAXone SODIUM 1 GM VIAL ONE (12:28)
[2018-09-04] MEDS ORDERED: DEXTROSE 5%-WATER - 50 ML IVPB ONE (12:28)
[2018-09-04] MEDS: CEFTRIAXONE 1 GM in DEXTROSE 5%-WATER - 50 ML IVPB SCH (12:33)
[2018-09-04] MEDS: DOCUSATE SODIUM 100 MG CAPSULE (FP) PO SCH ×2 (12:33→21:26)
--- NOTE | 2018-09-04 14:20 | PN ---
Progress Note, Physician History of Present Illness: not feeling good some pain - Current Medication List Current Medications: Active Medications Acetaminophen (Tylenol -) 650 mg PO Q6H PRN PRN Reason: FEVER Docusate Sodium (Colace -) 100 mg PO BID [facility] Last Admin: 09/04/18 12:33 Dose: 100 mg Sodium Chloride (Normal Saline -) 1,000 mls @ 75 mls/hr IV ASDIR [facility] Last Admin: 09/03/18 21:36 Dose: 75 mls/hr Ceftriaxone Sodium 1 gm/ (Dextrose) 50 mls @ 100 mls/hr IVPB DAILY [facility]; Protocol Last Admin: 09/04/18 12:33 Dose: 100 mls/hr Non-Formulary Medication (Lutein [Lutein]) 20 mg PO DAILY PRN PRN Reason: vitamin for the eyes Propranolol HCl (Inderal -) 10 mg PO BID [facility] Last Admin: 09/04/18 09:31 Dose: 10 mg Rosuvastatin Calcium (Crestor -) 5 mg PO HS [facility] Last Admin: 09/03/18 21:36 Dose: 5 mg Trimethoprim/Sulfamethoxazole (Bactrim Ds -) 1 each PO BID [facility] Last Admin: 09/04/18 09:31 Dose: 1 each - Objective Vital Signs: Vital Signs Temperature 99.9 F H 09/04/18 10:00 Pulse Rate 105 H 09/04/18 10:00 Respiratory Rate 20 09/04/18 10:00 Blood Pressure 145/69 09/04/18 10:00 O2 Sat by Pulse Oximetry (%) 99 09/04/18 09:00 Constitutional: Yes: No Distress HENT: Yes: Atraumatic Neck: Yes: Supple Cardiovascular: Yes: Regular Rate and Rhythm Respiratory: Yes: CTA Bilaterally Gastrointestinal: Yes: Normal Bowel Sounds Extremities: Yes: WNL Edema: No Neurological: Yes: Alert, Oriented Labs: CBC, BMP 09/03/18 05:30 09/03/18 05:30 INR, PTT INR 1.08 (0.83-1.09) 09/02/18 12:11 Problem List - Problems (1) Diabetes Assessment/Plan: elevated cr and low gfr have to hold metformin check bgms.. Code(s): E11.9 - TYPE 2 DIABETES MELLITUS WITHOUT COMPLICATIONS (2) Fever Assessment/Plan: low grade temp today back to iv abx Code(s): R50.9 - FEVER, UNSPECIFIED Qualifiers: Fever type: other (3) HTN (hypertension) Code(s): I10 - ESSENTIAL (PRIMARY) HYPERTENSION Qualifiers: Hypertension type: essential hypertension Qualified Code(s): I10 - Essential (primary) hypertension (4) Hyperlipemia Code(s): E78.5 - HYPERLIPIDEMIA, UNSPECIFIED Qualifiers: Hyperlipidemia type: pure hypercholesterolemia Qualified Code(s): E78.00 - Pure hypercholesterolemia, unspecified; E78.0 - Pure hypercholesterolemia (5) Constipation Assessment/Plan: appetite is good no nausea pasing gas will put her on stool softener Code(s): K59.00 - CONSTIPATION, UNSPECIFIED
[2018-09-04] MEDS: ACETAMINOPHEN 325 MG TABLET (FP) PO PRN (14:59)
[2018-09-04] MEDS: INSULIN SLIDING SCALE (NOVOLOG) 1 VIAL SQ SCH ×2 (16:20→21:31)
[2018-09-04] MEDS: SODIUM CHLORIDE 1,000 ML IV SCH ×2 (16:21→21:26)
--- NOTE | 2018-09-04 18:10 | CON.NEP ---
Consult Consult Specialty:: Nephrology Referred by:: isabel Reason for Consultation:: kidney failure - History of Present Illness Chief Complaint: diarrhea History of Present Illness: admitted for eval of acute diarrhea/palpitations/and fever since 08/28 she has azotemia worse than her labs in the health info system here serum creat was 2.7 and now has gone down to 2.5 with rehydration and resolution of diarrhea hyponatremia Na 126 has also improved to 133 of note she has h/o dm and renal insuff and kidney stones/ left ureteral stone s/p lithotripsy on 08/27 has been treated with bactrim sine 08/30 unclear what her recent baseline renal function called dr Park the pmd, says her baseline prior to admission is s creat 1.4 and that she is followed at [facility] by dr craig - Past Medical History Cardio/Vascular: Yes: HTN, Hyperlipdemia Renal/: Yes: Renal Calculi ...: No Endocrine: Yes: Diabetes Mellitus - Past Surgical History Past Surgical History: Yes: Appendectomy, Colonoscopy (wnl, no polyps), Hysterectomy - Alcohol/Substance Use Hx Alcohol Use: No - Smoking History Smoking history: Never smoked Have you smoked in the past 12 months: No - 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 History of Recent Travel: No Home Medications - Allergies Allergies/Adverse Reactions: Allergies Allergy/AdvReac Type Severity Reaction Status Date / Time levofloxacin [From Levaquin] Allergy Intermediate Hives Verified 09/02/18 11:06 - Home Medications Home Medications: Ambulatory Orders Propranolol HCl 10 mg PO BID 09/06/15 Rosuvastatin Calcium [Crestor] 5 mg PO DAILY 09/06/15 Lutein 20 mg PO DAILY PRN 02/11/16 Metformin HCl [Glucophage] 500 mg PO BID 08/23/18 Sulfamethoxazole/Trimethoprim [Bactrim Ds Tablet] 1 each PO BID #20 tablet 08/29 Family Disease History - Family Disease History Family Disease History: Other: Brother (Unknown cause?) Nephrology Consult - Height Height: 5 ft 3 in - Weight Weight: 124 lb 9.6 oz - BMI Body Mass Index (BMI): 22.0 - Lab Results CBC,BMP: CBC, BMP 09/03/18 05:30 09/03/18 05:30 Anion Gap: Anion Gap Anion Gap 11 MMOL/L (8-16) 09/03/18 05:30 - Physical Examination Vital Signs: Vital Signs Temperature 100.4 F H 09/04/18 14:34 Pulse Rate 92 H 09/04/18 14:34 Respiratory Rate 20 09/04/18 14:34 Blood Pressure 141/58 L 09/04/18 14:34 O2 Sat by Pulse Oximetry (%) 99 09/04/18 09:00 Constitutional: Yes: Well Nourished Eyes: Yes: WNL HENT: Yes: WNL, Nasal Congestion Neck: Yes: WNL Cardiovascular: Yes: WNL Respiratory: Yes: WNL Gastrointestinal: Yes: WNL Musculoskeletal: Yes: WNL Extremities: Yes: WNL Edema: No Integumentary: Yes: WNL Assessment/Plan acute on chronic kidney failure 2/2 to recent acute illnesses, lithotripsy and fever renal function is improving with ivf and she is improving clinically hyponatremia resolving anemia mild hydro on on left associated with stones r/o obstructive uropathy Urology f/u continue IVF for now will order renal scan to evaluate left obstructive kidney stone
[2018-09-04] MEDS: ROSUVASTATIN CA 5 MG TABLET (FP) PO SCH (21:26)
[2018-09-04] MEDS: POLYETHYLENE GLYCOL 3350 119 GM BTL PO SCH (21:26)
[2018-09-05] MEDS: INSULIN SLIDING SCALE (NOVOLOG) 1 VIAL SQ SCH ×4 (06:31→22:27)
[2018-09-05 06:58] LABS: HEMATOCRIT 29.2 % (32.4-45.2); HEMOGLOBIN 9.4 GM/dL (10.7-15.3); MCH 28.1 pg (25.7-33.7); MCHC 32.2 g/dl (32.0-36.0); MEAN CELL VOLUME 87.2 fl (80-96); MEAN PLT VOLUME 7.4 fl (7.5-11.1); PLATELET COUNT 249 K/MM3 (134-434); RBC 3.35 M/mm3 (3.60-5.2); RDW 14.2 % (11.6-15.6); WHITE BLOOD COUNT 13.2 K/mm3 (4.0-10.0)
[2018-09-05 07:34] LABS: ALBUMIN 2.6 g/dl (3.4-5.0); ALK PHOS 121 U/L (45-117); ANION GAP 11 MMOL/L (8-16); BILIRUBIN,TOTAL 0.2 mg/dL (0.2-1); BLOOD UREA NITROGEN 29 mg/dL (7-18); CALCIUM 7.7 mg/dL (8.5-10.1); CHLORIDE 102 mmol/L (98-107); CO2 20 mmol/L (21-32); CREATININE 2.4 mg/dL (0.55-1.3); GLUCOSE,RANDOM 142 mg/dL (74-106); POTASSIUM 4.2 mmol/L (3.5-5.1); SGOT/AST 30 U/L (15-37); SGPT/ALT 34 U/L (13-61); SODIUM 133 mmol/L (136-145); TOT PROT 6.6 g/dl (6.4-8.2)
--- NOTE | 2018-09-05 09:05 | CONSULT ---
Consult - text type - Consultation Consultation Note: s/p lithotripsy 08/27 5 mm left ureteral stone Pt currently pain free repeat kub If does not pass will require Lithotripsy vs ureteroscopy
--- NOTE | 2018-09-05 09:22 | PN ---
Progress Note, Physician History of Present Illness: patient stable wbc still increasing urology nephrology on case - Current Medication List Current Medications: Active Medications Acetaminophen (Tylenol -) 650 mg PO Q6H PRN PRN Reason: FEVER Last Admin: 09/04/18 14:59 Dose: 650 mg Docusate Sodium (Colace -) 100 mg PO BID [facility] Last Admin: 09/04/18 21:26 Dose: 100 mg Sodium Chloride (Normal Saline -) 1,000 mls @ 75 mls/hr IV ASDIR [facility] Last Admin: 09/04/18 21:26 Dose: 75 mls/hr Ceftriaxone Sodium 1 gm/ (Dextrose) 50 mls @ 100 mls/hr IVPB DAILY [facility]; Protocol Last Admin: 09/04/18 12:33 Dose: 100 mls/hr Insulin Aspart (Novolog Vial Sliding Scale -) 1 vial SQ ACHS [facility]; Protocol Last Admin: 09/05/18 06:31 Dose: Not Given Polyethylene Glycol (Miralax (For Daily Use) -) 17 gm PO BID [facility] Last Admin: 09/04/18 21:26 Dose: Not Given Propranolol HCl (Inderal -) 10 mg PO BID [facility] Last Admin: 09/04/18 21:26 Dose: 10 mg Rosuvastatin Calcium (Crestor -) 5 mg PO HS [facility] Last Admin: 09/04/18 21:26 Dose: 5 mg Trimethoprim/Sulfamethoxazole (Bactrim Ds -) 1 each PO BID [facility] Last Admin: 09/04/18 21:26 Dose: 1 each - Objective Vital Signs: Vital Signs Temperature 98.5 F 09/05/18 06:00 Pulse Rate 96 H 09/05/18 06:00 Respiratory Rate 20 09/05/18 06:00 Blood Pressure 120/59 L 09/05/18 06:00 O2 Sat by Pulse Oximetry (%) 99 09/04/18 21:00 Constitutional: Yes: No Distress, Calm Cardiovascular: Yes: Regular Rate and Rhythm Respiratory: Yes: Regular, CTA Bilaterally Gastrointestinal: Yes: Normal Bowel Sounds, Soft Musculoskeletal: Yes: WNL Extremities: Yes: WNL Neurological: Yes: Alert, Oriented Psychiatric: Yes: Alert, Oriented Labs: CBC, BMP 09/05/18 06:10 09/05/18 06:10 INR, PTT INR 1.08 (0.83-1.09) 09/02/18 12:11 Assessment/Plan Problem List - Problems (1) Diabetes Code(s): E11.9 - TYPE 2 DIABETES MELLITUS WITHOUT COMPLICATIONS (2) Fever Code(s): R50.9 - FEVER, UNSPECIFIED Qualifiers: Fever type: other (3) HTN (hypertension) Code(s): I10 - ESSENTIAL (PRIMARY) HYPERTENSION (4) Hyperlipemia Code(s): E78.5 - HYPERLIPIDEMIA, UNSPECIFIED 5 renal insufficiency plan continue abx monitor wbc urology following rest as per the team
[2018-09-05] MEDS ORDERED: DEXTROSE 5%-WATER - 50 ML IVPB ONE ×2 (09:24→16:12)
[2018-09-05] MEDS ORDERED: cefTRIAXone SODIUM 1 GM VIAL ONE (09:24)
[2018-09-05] MEDS: SULFAMETHOXAZOLE/TRIMETHOPRIM 800MG/160MG D.S. TABLET PO SCH (09:31)
[2018-09-05] MEDS: DOCUSATE SODIUM 100 MG CAPSULE (FP) PO SCH ×2 (09:31→22:24)
[2018-09-05] MEDS: CEFTRIAXONE 1 GM in DEXTROSE 5%-WATER - 50 ML IVPB SCH (09:31)
[2018-09-05] MEDS: POLYETHYLENE GLYCOL 3350 119 GM BTL PO SCH ×2 (09:31→22:24)
--- NOTE | 2018-09-05 11:20 | PN ---
Progress Note, Physician History of Present Illness: Afebrile, no flank pain, denies palpitations. - Current Medication List Current Medications: Active Medications Acetaminophen (Tylenol -) 650 mg PO Q6H PRN PRN Reason: FEVER Last Admin: 09/04/18 14:59 Dose: 650 mg Docusate Sodium (Colace -) 100 mg PO BID [facility] Last Admin: 09/05/18 09:31 Dose: 100 mg Sodium Chloride (Normal Saline -) 1,000 mls @ 75 mls/hr IV ASDIR [facility] Last Admin: 09/04/18 21:26 Dose: 75 mls/hr Ceftriaxone Sodium 1 gm/ (Dextrose) 50 mls @ 100 mls/hr IVPB DAILY [facility]; Protocol Last Admin: 09/05/18 09:31 Dose: 100 mls/hr Insulin Aspart (Novolog Vial Sliding Scale -) 1 vial SQ ACHS [facility]; Protocol Last Admin: 09/05/18 06:31 Dose: Not Given Polyethylene Glycol (Miralax (For Daily Use) -) 17 gm PO BID [facility] Last Admin: 09/05/18 09:31 Dose: 17 grams Propranolol HCl (Inderal -) 10 mg PO BID [facility] Last Admin: 09/05/18 09:31 Dose: 10 mg Rosuvastatin Calcium (Crestor -) 5 mg PO HS [facility] Last Admin: 09/04/18 21:26 Dose: 5 mg Trimethoprim/Sulfamethoxazole (Bactrim Ds -) 1 each PO BID [facility] Last Admin: 09/05/18 09:31 Dose: 1 each - Objective Vital Signs: Vital Signs Temperature 99.3 F 09/05/18 10:00 Pulse Rate 116 H 09/05/18 10:00 Respiratory Rate 20 09/05/18 10:00 Blood Pressure 144/55 L 09/05/18 10:00 O2 Sat by Pulse Oximetry (%) 99 09/04/18 21:00 Constitutional: Yes: No Distress, Calm Neck: Yes: Supple Cardiovascular: Yes: Regular Rate and Rhythm Respiratory: Yes: Regular, CTA Bilaterally Gastrointestinal: Yes: Normal Bowel Sounds, Soft Edema: No Labs: CBC, BMP 09/05/18 06:10 09/05/18 06:10 INR, PTT INR 1.08 (0.83-1.09) 09/02/18 12:11 Problem List - Problems (1) Hydronephrosis concurrent with and due to calculi of kidney and ureter Code(s): N13.2 - HYDRONEPHROSIS WITH RENAL AND URETERAL CALCULOUS OBSTRUCTION (2) Acute kidney injury Code(s): N17.9 - ACUTE KIDNEY FAILURE, UNSPECIFIED (3) HTN (hypertension) Code(s): I10 - ESSENTIAL (PRIMARY) HYPERTENSION Qualifiers: Hypertension type: essential hypertension Qualified Code(s): I10 - Essential (primary) hypertension (4) Hyperlipemia Code(s): E78.5 - HYPERLIPIDEMIA, UNSPECIFIED Qualifiers: Hyperlipidemia type: pure hypercholesterolemia Qualified Code(s): E78.00 - Pure hypercholesterolemia, unspecified; E78.0 - Pure hypercholesterolemia (5) Palpitations Code(s): R00.2 - PALPITATIONS (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 Palpitations 2. HTN 3. Hypercholesterolemia 4. DM 5. Nephrolithiasis s/p lithotripsy 08/27 6. Acute on CKD 7. Hyponatremia PLAN: 1. Continue Inderal 10 bid and Rosuvastatin 5 qhs 2. IV Hydration with monitor renal function and electrolytes. Nephrology consultation appreciated, f/u renal scan, metformin held in meantime 3. Empiric abx course for sepsis source 4. If residual 5 mm left ureteral stone does not pass will require Lithotripsy vs ureteroscopy
--- NOTE | 2018-09-05 13:13 | PN ---
Progress Note, Physician History of Present Illness: Pt seen and examined at bedside. She denies flank pain. She denies fevers or chills. She is awake and alert. - Current Medication List Current Medications: Active Medications Acetaminophen (Tylenol -) 650 mg PO Q6H PRN PRN Reason: FEVER Last Admin: 09/04/18 14:59 Dose: 650 mg Docusate Sodium (Colace -) 100 mg PO BID [facility] Last Admin: 09/05/18 09:31 Dose: 100 mg Sodium Chloride (Normal Saline -) 1,000 mls @ 75 mls/hr IV ASDIR [facility] Last Admin: 09/04/18 21:26 Dose: 75 mls/hr Ceftriaxone Sodium 1 gm/ (Dextrose) 50 mls @ 100 mls/hr IVPB DAILY [facility]; Protocol Last Admin: 09/05/18 09:31 Dose: 100 mls/hr Insulin Aspart (Novolog Vial Sliding Scale -) 1 vial SQ ACHS [facility]; Protocol Last Admin: 09/05/18 06:31 Dose: Not Given Polyethylene Glycol (Miralax (For Daily Use) -) 17 gm PO BID [facility] Last Admin: 09/05/18 09:31 Dose: 17 grams Propranolol HCl (Inderal -) 10 mg PO BID [facility] Last Admin: 09/05/18 09:31 Dose: 10 mg Rosuvastatin Calcium (Crestor -) 5 mg PO HS [facility] Last Admin: 09/04/18 21:26 Dose: 5 mg Trimethoprim/Sulfamethoxazole (Bactrim Ds -) 1 each PO BID [facility] Last Admin: 09/05/18 09:31 Dose: 1 each - Objective Vital Signs: Vital Signs Temperature 99.3 F 09/05/18 10:00 Pulse Rate 116 H 09/05/18 10:00 Respiratory Rate 20 09/05/18 10:00 Blood Pressure 144/55 L 09/05/18 10:00 O2 Sat by Pulse Oximetry (%) 99 09/04/18 21:00 Constitutional: Yes: Calm Eyes: Yes: Conjunctiva Clear HENT: Yes: Atraumatic Cardiovascular: Yes: S1, S2 Respiratory: Yes: CTA Bilaterally Gastrointestinal: Yes: Soft Genitourinary: Yes: WNL Musculoskeletal: Yes: WNL Edema: No Integumentary: Yes: WNL Neurological: Yes: Oriented Psychiatric: Yes: Oriented Labs: CBC, BMP 09/05/18 06:10 09/05/18 06:10 INR, PTT INR 1.08 (0.83-1.09) 09/02/18 12:11 Problem List - Problems (1) Diarrhea Code(s): R19.7 - DIARRHEA, UNSPECIFIED (2) Hydronephrosis concurrent with and due to calculi of kidney and ureter Code(s): N13.2 - HYDRONEPHROSIS WITH RENAL AND URETERAL CALCULOUS OBSTRUCTION (3) Acute kidney injury Code(s): N17.9 - ACUTE KIDNEY FAILURE, UNSPECIFIED (4) Diabetes Code(s): E11.9 - TYPE 2 DIABETES MELLITUS WITHOUT COMPLICATIONS (5) HTN (hypertension) Code(s): I10 - ESSENTIAL (PRIMARY) HYPERTENSION Qualifiers: Hypertension type: essential hypertension Qualified Code(s): I10 - Essential (primary) hypertension (6) Hyperlipemia Code(s): E78.5 - HYPERLIPIDEMIA, UNSPECIFIED Qualifiers: Hyperlipidemia type: pure hypercholesterolemia Qualified Code(s): E78.00 - Pure hypercholesterolemia, unspecified; E78.0 - Pure hypercholesterolemia Assessment/Plan Current Medications Generic Name Dose Route Start Last Admin Trade Name Freq PRN Reason Stop Dose Admin Acetaminophen 650 mg 09/02/18 15:36 09/04/18 14:59 Tylenol - PO 650 mg Q6H PRN Administration FEVER Docusate Sodium 100 mg 09/04/18 12:30 09/05/18 09:31 Colace - PO 100 mg BID [facility] Administration Sodium Chloride 1,000 mls @ 75 mls/hr 09/02/18 19:45 09/04/18 21:26 Normal Saline - IV 75 mls/hr ASDIR [facility] Administration Ceftriaxone Sodium 1 gm/ 50 mls @ 100 mls/hr 09/04/18 12:30 09/05/18 09:31 Dextrose IVPB 100 mls/hr DAILY [facility] Administration Protocol Insulin Aspart 1 vial 09/04/18 16:30 09/05/18 06:31 Novolog Vial Sliding Scale - SQ Not Given ACHS [facility] Protocol Polyethylene Glycol 17 gm 09/04/18 22:00 09/05/18 09:31 Miralax (For Daily Use) - PO 17 grams BID [facility] Administration Propranolol HCl 10 mg 09/02/18 22:00 09/05/18 09:31 Inderal - PO 10 mg BID [facility] Administration Rosuvastatin Calcium 5 mg 10/29/18 22:00 09/04/18 21:26 Crestor - PO 5 mg HS [facility] Administration Trimethoprim/Sulfamethoxazole 1 each 09/03/18 22:00 09/05/18 09:31 Bactrim Ds - PO 1 each BID [facility] Administration Laboratory Tests 09/02/18 09/02/18 09/02/18 12:11 12:11 17:35 Sodium Potassium Carbon Dioxide BUN Creatinine 2.7 H 2.6 H Random Glucose Urine Protein Negative Urine Glucose (UA) 1+ H Urine Blood Negative 09/03/18 09/05/18 05:30 06:10 Sodium 133 L Potassium 4.2 Carbon Dioxide 20 L BUN 29 H Creatinine 2.5 H 2.4 H Random Glucose 142 H Urine Protein Urine Glucose (UA) Urine Blood Microbiology 09/02/18 12:11 Urine - Urine Clean Catch Urine Culture - Final NO GROWTH OBTAINED 09/02/18 12:11 Blood - Peripheral Venous Blood Culture - Preliminary NO GROWTH OBTAINED AFTER 72 HOURS, INCUBATION TO CONTINUE FOR 2 DAYS. 09/02/18 12:11 Blood - Peripheral Venous Blood Culture - Preliminary NO GROWTH OBTAINED AFTER 72 HOURS, INCUBATION TO CONTINUE FOR 2 DAYS. Impression 1. MAJOR 2. nephrolithiasis 3. hydronephrosis 4. diarrhea 5. hyponatremia 6. HTN 7. DM 8. HLD Plan - creatinine is slowly improving - spoke to ID, bactrim can be stopped as she is on ceftriaxone - urology input appreciated - check renal ultrasound - check lytes and quill layer - monitor renal function - will follow Dr De La Fuente
[2018-09-05] MEDS ORDERED: INSULIN (NOVOLOG) ASPART 100 UNITS/ML 10ML VIAL ONE (13:15)
[2018-09-05] MEDS ORDERED: PIPERACILLIN/TAZOBACTAM 2.25 GM VIAL IVPB ONE (16:12)
[2018-09-05] MEDS: PIPERACILLIN/TAZOB 2.25 GM 2.25 GM in DEXTROSE 5%-WATER - 50 ML IVPB SCH (17:02)
--- NOTE | 2018-09-05 18:01 | PN ---
Progress Note, Physician History of Present Illness: doing well - Current Medication List Current Medications: Active Medications Acetaminophen (Tylenol -) 650 mg PO Q6H PRN PRN Reason: FEVER Last Admin: 09/04/18 14:59 Dose: 650 mg Docusate Sodium (Colace -) 100 mg PO BID [facility] Last Admin: 09/05/18 09:31 Dose: 100 mg Sodium Chloride (Normal Saline -) 1,000 mls @ 75 mls/hr IV ASDIR [facility] Last Admin: 09/04/18 21:26 Dose: 75 mls/hr Piperacillin Sod/Tazobactam (Sod 2.25 gm/ Dextrose) 50 mls @ 100 mls/hr IVPB Q8H-IV [facility]; Protocol Last Admin: 09/05/18 17:02 Dose: 100 mls/hr Insulin Aspart (Novolog Vial Sliding Scale -) 1 vial SQ ACHS [facility]; Protocol Last Admin: 09/05/18 16:57 Dose: 4 units Polyethylene Glycol (Miralax (For Daily Use) -) 17 gm PO BID [facility] Last Admin: 09/05/18 09:31 Dose: 17 grams Propranolol HCl (Inderal -) 10 mg PO BID [facility] Last Admin: 09/05/18 09:31 Dose: 10 mg Rosuvastatin Calcium (Crestor -) 5 mg PO HS [facility] Last Admin: 09/04/18 21:26 Dose: 5 mg - Objective Vital Signs: Vital Signs Temperature 101.1 F H 09/05/18 13:00 Pulse Rate 100 H 09/05/18 13:00 Respiratory Rate 20 09/05/18 13:00 Blood Pressure 153/69 09/05/18 13:00 O2 Sat by Pulse Oximetry (%) 100 09/05/18 09:00 Constitutional: Yes: No Distress HENT: Yes: Atraumatic Neck: Yes: Supple Cardiovascular: Yes: Regular Rate and Rhythm Respiratory: Yes: CTA Bilaterally Gastrointestinal: Yes: Normal Bowel Sounds Extremities: Yes: WNL Edema: No Neurological: Yes: Alert, Oriented Labs: CBC, BMP 09/05/18 06:10 09/05/18 06:10 INR, PTT INR 1.08 (0.83-1.09) 09/02/18 12:11 Problem List - Problems (1) Diabetes Assessment/Plan: elevated cr and low gfr have to hold metformin check bgms.. on insulin sliding scale Code(s): E11.9 - TYPE 2 DIABETES MELLITUS WITHOUT COMPLICATIONS (2) Fever Assessment/Plan: low grade temp today back to iv abx cxs sent Code(s): R50.9 - FEVER, UNSPECIFIED Qualifiers: Fever type: other (3) HTN (hypertension) Code(s): I10 - ESSENTIAL (PRIMARY) HYPERTENSION Qualifiers: Hypertension type: essential hypertension Qualified Code(s): I10 - Essential (primary) hypertension (4) Hyperlipemia Assessment/Plan: on meds Code(s): E78.5 - HYPERLIPIDEMIA, UNSPECIFIED Qualifiers: Hyperlipidemia type: pure hypercholesterolemia Qualified Code(s): E78.00 - Pure hypercholesterolemia, unspecified; E78.0 - Pure hypercholesterolemia (5) Constipation Assessment/Plan: appetite is good had BM Code(s): K59.00 - CONSTIPATION, UNSPECIFIED
[2018-09-05] MEDS: ROSUVASTATIN CA 5 MG TABLET (FP) PO SCH (22:24)
[2018-09-05] MEDS: SODIUM CHLORIDE 1,000 ML IV SCH (22:27)
[2018-09-06] MEDS ORDERED: DEXTROSE 5%-WATER - 50 ML IVPB ONE ×3 (01:30→16:52)
[2018-09-06] MEDS ORDERED: PIPERACILLIN/TAZOBACTAM 2.25 GM VIAL IVPB ONE ×4 (01:30→16:52)
[2018-09-06] MEDS: PIPERACILLIN/TAZOB 2.25 GM 2.25 GM in DEXTROSE 5%-WATER - 50 ML IVPB SCH ×3 (01:50→17:37)
[2018-09-06] MEDS: ACETAMINOPHEN 325 MG TABLET (FP) PO PRN (01:57)
[2018-09-06] MEDS: INSULIN SLIDING SCALE (NOVOLOG) 1 VIAL SQ SCH ×4 (06:43→22:02)
[2018-09-06 08:02] LABS: ALBUMIN 2.6 g/dl (3.4-5.0); ALK PHOS 142 U/L (45-117); ANION GAP 13 MMOL/L (8-16); BILIRUBIN,TOTAL 0.4 mg/dL (0.2-1); BLOOD UREA NITROGEN 33 mg/dL (7-18); CALCIUM 8.1 mg/dL (8.5-10.1); CHLORIDE 102 mmol/L (98-107); CO2 19 mmol/L (21-32); CREATININE 2.5 mg/dL (0.55-1.3); GLUCOSE,RANDOM 133 mg/dL (74-106); POTASSIUM 4.2 mmol/L (3.5-5.1); SGOT/AST 31 U/L (15-37); SGPT/ALT 38 U/L (13-61); SODIUM 133 mmol/L (136-145)
--- NOTE | 2018-09-06 09:42 | PN ---
Progress Note (short form) - Note Progress Note: no flank pain has fever, placed on broader spectrum abx sono with left hydro will plan for cysto/stent placement today
[2018-09-06] MEDS ORDERED: MIDAZOLAM HCL 2 MG/2 ML SINGLE DOSE VIAL ONE (09:57)
[2018-09-06] MEDS ORDERED: PROPOFOL 20 ML ONE (10:01)
[2018-09-06] MEDS ORDERED: SUCCINYLCHOLINE CHLORIDE 200 MG/10 ML VIAL ONE (10:01)
[2018-09-06] MEDS: POLYETHYLENE GLYCOL 3350 119 GM BTL PO SCH ×2 (10:18→22:02)
[2018-09-06] MEDS: DOCUSATE SODIUM 100 MG CAPSULE (FP) PO SCH ×2 (10:18→21:58)
--- NOTE | 2018-09-06 10:23 | OP ---
Operative Note - Note: Operative Date: 09/06/18 Pre-Operative Diagnosis: obstructing LPU stones Operation: cysto/left stent placement Post-Operative Diagnosis: Same as Pre-op Screw Eye Assembler: Jamey Lerma Anesthesia: General Estimated Blood Loss (mls): 0 Operative Report Dictated: Yes
[2018-09-06] MEDS ORDERED: ONDANSETRON 4 MG/2 ML VIAL IVPUSH PRN (10:55)
[2018-09-06] MEDS ORDERED: ACETAMINOPHEN 325 MG TABLET (FP) PO PRN (11:07)
--- NOTE | 2018-09-06 11:14 | PN ---
Progress Note, Physician History of Present Illness: stable post op from stent placement - Current Medication List Current Medications: Active Medications Acetaminophen (Tylenol -) 650 mg PO Q6H PRN PRN Reason: FEVER Docusate Sodium (Colace -) 100 mg PO BID [facility] Fentanyl (Sublimaze Injection -) 25 mcg IVPUSH [id number] PRN PRN Reason: PAIN-PACU ORDER X 4 DOSES ONLY Lactated Ringer's (Lactated Ringers Solution) 1,000 mls @ 75 mls/hr IV ASDIR [facility] Piperacillin Sod/Tazobactam (Sod 2.25 gm/ Dextrose) 50 mls @ 100 mls/hr IVPB Q8H-IV [facility]; Protocol Sodium Chloride (Normal Saline -) 1,000 mls @ 75 mls/hr IV ASDIR [facility] Insulin Aspart (Novolog Vial Sliding Scale -) 1 vial SQ ACHS [facility]; Protocol Ondansetron HCl (Zofran Injection) 4 mg IVPUSH Q6H PRN PRN Reason: NAUSEA AND/OR VOMITING Polyethylene Glycol (Miralax (For Daily Use) -) 17 gm PO BID [facility] Propranolol HCl (Inderal -) 10 mg PO BID [facility] Rosuvastatin Calcium (Crestor -) 5 mg PO HS [facility] - Objective Vital Signs: Vital Signs Temperature 98.7 F 09/06/18 08:40 Pulse Rate 94 H 09/06/18 08:40 Respiratory Rate 18 09/06/18 08:40 Blood Pressure 129/66 09/06/18 08:40 O2 Sat by Pulse Oximetry (%) 100 09/05/18 21:00 Constitutional: Yes: No Distress, Calm Cardiovascular: Yes: Regular Rate and Rhythm Respiratory: Yes: Regular, CTA Bilaterally Gastrointestinal: Yes: Normal Bowel Sounds, Soft Musculoskeletal: Yes: WNL Extremities: Yes: WNL Neurological: Yes: Alert, Oriented Psychiatric: Yes: Alert, Oriented Labs: CBC, BMP 09/05/18 06:10 09/06/18 06:00 INR, PTT INR 1.08 (0.83-1.09) 09/02/18 12:11 Assessment/Plan Problem List - Problems (1) Diabetes Code(s): E11.9 - TYPE 2 DIABETES MELLITUS WITHOUT COMPLICATIONS (2) Fever Code(s): R50.9 - FEVER, UNSPECIFIED Qualifiers: Fever type: other (3) HTN (hypertension) Code(s): I10 - ESSENTIAL (PRIMARY) HYPERTENSION (4) Hyperlipemia Code(s): E78.5 - HYPERLIPIDEMIA, UNSPECIFIED 5 renal insufficiency plan continue abx monitor wbc will see how patient does rest as per the team
[2018-09-06] MEDS: LACTATED RINGERS SOLUTION 1,000 ML IV SCH (11:55)
[2018-09-06] MEDS: SODIUM CHLORIDE 1,000 ML IV SCH (12:15)
--- NOTE | 2018-09-06 12:45 | PN ---
Progress Note, Physician History of Present Illness: Afebrile, no flank pain, denies palpitations, post cysto and left ureteral stent placement. - Current Medication List Current Medications: Active Medications Acetaminophen (Tylenol -) 650 mg PO Q6H PRN PRN Reason: FEVER Docusate Sodium (Colace -) 100 mg PO BID [facility] Fentanyl (Sublimaze Injection -) 25 mcg IVPUSH [id number] PRN PRN Reason: PAIN-PACU ORDER X 4 DOSES ONLY Lactated Ringer's (Lactated Ringers Solution) 1,000 mls @ 75 mls/hr IV ASDIR [facility] Last Admin: 09/06/18 11:55 Dose: Not Given Piperacillin Sod/Tazobactam (Sod 2.25 gm/ Dextrose) 50 mls @ 100 mls/hr IVPB Q8H-IV [facility]; Protocol Sodium Chloride (Normal Saline -) 1,000 mls @ 75 mls/hr IV ASDIR [facility] Insulin Aspart (Novolog Vial Sliding Scale -) 1 vial SQ ACHS [facility]; Protocol Ondansetron HCl (Zofran Injection) 4 mg IVPUSH Q6H PRN PRN Reason: NAUSEA AND/OR VOMITING Polyethylene Glycol (Miralax (For Daily Use) -) 17 gm PO BID [facility] Propranolol HCl (Inderal -) 10 mg PO BID [facility] Rosuvastatin Calcium (Crestor -) 5 mg PO HS [facility] - Objective Vital Signs: Vital Signs Temperature 97.6 F 09/06/18 11:40 Pulse Rate 84 09/06/18 11:40 Respiratory Rate 16 09/06/18 11:40 Blood Pressure 126/60 09/06/18 11:40 O2 Sat by Pulse Oximetry (%) 100 09/06/18 11:30 Constitutional: Yes: No Distress, Calm Neck: Yes: Supple Cardiovascular: Yes: Regular Rate and Rhythm Respiratory: Yes: Regular, CTA Bilaterally Gastrointestinal: Yes: Normal Bowel Sounds, Soft Edema: No Labs: CBC, BMP 09/05/18 06:10 09/06/18 06:00 INR, PTT INR 1.08 (0.83-1.09) 09/02/18 12:11 Problem List - Problems (1) Hydronephrosis concurrent with and due to calculi of kidney and ureter Code(s): N13.2 - HYDRONEPHROSIS WITH RENAL AND URETERAL CALCULOUS OBSTRUCTION (2) Acute kidney injury Code(s): N17.9 - ACUTE KIDNEY FAILURE, UNSPECIFIED (3) HTN (hypertension) Code(s): I10 - ESSENTIAL (PRIMARY) HYPERTENSION Qualifiers: Hypertension type: essential hypertension Qualified Code(s): I10 - Essential (primary) hypertension (4) Hyperlipemia Code(s): E78.5 - HYPERLIPIDEMIA, UNSPECIFIED Qualifiers: Hyperlipidemia type: pure hypercholesterolemia Qualified Code(s): E78.00 - Pure hypercholesterolemia, unspecified; E78.0 - Pure hypercholesterolemia (5) Palpitations Code(s): R00.2 - PALPITATIONS (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 Palpitations 2. HTN 3. Hypercholesterolemia 4. DM 5. Nephrolithiasis with hydronephrosis s/p lithotripsy 08/27 and cysto/left stent placement 09/05 6. Acute on CKD 7. Hyponatremia PLAN: 1. Continue Inderal 10 bid and Rosuvastatin 5 qhs 2. IV Hydration with monitor renal function and electrolytes. Nephrology consultation appreciated, f/u renal scan, metformin held in meantime 3. Empiric abx course for sepsis source
--- NOTE | 2018-09-06 12:53 | PN ---
Progress Note, Physician History of Present Illness: Pt seen and examined at bedside. She went for cysto and had a left stent placed today. She is awake and alert. She denies flank pain or fevers. - Current Medication List Current Medications: Active Medications Acetaminophen (Tylenol -) 650 mg PO Q6H PRN PRN Reason: FEVER Docusate Sodium (Colace -) 100 mg PO BID [facility] Fentanyl (Sublimaze Injection -) 25 mcg IVPUSH [id number] PRN PRN Reason: PAIN-PACU ORDER X 4 DOSES ONLY Lactated Ringer's (Lactated Ringers Solution) 1,000 mls @ 75 mls/hr IV ASDIR [facility] Last Admin: 09/06/18 11:55 Dose: Not Given Piperacillin Sod/Tazobactam (Sod 2.25 gm/ Dextrose) 50 mls @ 100 mls/hr IVPB Q8H-IV [facility]; Protocol Sodium Chloride (Normal Saline -) 1,000 mls @ 75 mls/hr IV ASDIR [facility] Insulin Aspart (Novolog Vial Sliding Scale -) 1 vial SQ [facility]; Protocol Ondansetron HCl (Zofran Injection) 4 mg IVPUSH Q6H PRN PRN Reason: NAUSEA AND/OR VOMITING Polyethylene Glycol (Miralax (For Daily Use) -) 17 gm PO BID [facility] Propranolol HCl (Inderal -) 10 mg PO BID [facility] Rosuvastatin Calcium (Crestor -) 5 mg PO HS [facility] - Objective Vital Signs: Vital Signs Temperature 97.6 F 09/06/18 11:40 Pulse Rate 84 09/06/18 11:40 Respiratory Rate 16 09/06/18 11:40 Blood Pressure 126/60 09/06/18 11:40 O2 Sat by Pulse Oximetry (%) 100 09/06/18 11:30 Constitutional: Yes: Calm Eyes: Yes: Conjunctiva Clear HENT: Yes: Atraumatic Neck: Yes: Supple Cardiovascular: Yes: S1, S2 Respiratory: Yes: CTA Bilaterally Gastrointestinal: Yes: Normal Bowel Sounds, Soft Genitourinary: Yes: WNL Musculoskeletal: Yes: WNL Edema: No Neurological: Yes: Oriented Psychiatric: Yes: Oriented Labs: CBC, BMP 09/05/18 06:10 09/06/18 06:00 INR, PTT INR 1.08 (0.83-1.09) 09/02/18 12:11 Problem List - Problems (1) Diarrhea Code(s): R19.7 - DIARRHEA, UNSPECIFIED (2) Hydronephrosis concurrent with and due to calculi of kidney and ureter Code(s): N13.2 - HYDRONEPHROSIS WITH RENAL AND URETERAL CALCULOUS OBSTRUCTION (3) Acute kidney injury Code(s): N17.9 - ACUTE KIDNEY FAILURE, UNSPECIFIED (4) Diabetes Code(s): E11.9 - TYPE 2 DIABETES MELLITUS WITHOUT COMPLICATIONS (5) HTN (hypertension) Code(s): I10 - ESSENTIAL (PRIMARY) HYPERTENSION Qualifiers: Qualified Code(s): I10 - Essential (primary) hypertension (6) Hyperlipemia Code(s): E78.5 - HYPERLIPIDEMIA, UNSPECIFIED Qualifiers: Qualified Code(s): E78.00 - Pure hypercholesterolemia, unspecified; E78.0 - Pure hypercholesterolemia Assessment/Plan Current Medications Generic Name Dose Route Start Last Admin Trade Name Freq PRN Reason Stop Dose Admin Acetaminophen 650 mg 09/06/18 11:07 Tylenol - PO Q6H PRN FEVER Docusate Sodium 100 mg 09/06/18 22:00 Colace - PO BID [facility] Fentanyl 25 mcg 09/06/18 10:55 Sublimaze Injection - IVPUSH [id number] PRN PAIN-PACU ORDER X 4 DOSES ONLY Lactated Ringer's 1,000 mls @ 75 mls/hr 09/06/18 11:00 09/06/18 11:55 Lactated Ringers Solution IV Not Given ASDIR [facility] Piperacillin Sod/Tazobactam 50 mls @ 100 mls/hr 09/06/18 18:00 Sod 2.25 gm/ Dextrose IVPB Q8H-IV [facility] Protocol Sodium Chloride 1,000 mls @ 75 mls/hr 09/06/18 11:07 Normal Saline - IV ASDIR [facility] Insulin Aspart 1 vial 09/06/18 16:30 Novolog Vial Sliding Scale - SQ ACHS [facility] Protocol Ondansetron HCl 4 mg 09/06/18 10:55 Zofran Injection IVPUSH Q6H PRN NAUSEA AND/OR VOMITING Polyethylene Glycol 17 gm 09/06/18 22:00 Miralax (For Daily Use) - PO BID [facility] Propranolol HCl 10 mg 09/06/18 22:00 Inderal - PO BID [facility] Rosuvastatin Calcium 5 mg 09/06/18 22:00 Crestor - PO HS [facility] Microbiology 09/02/18 12:11 Urine - Urine Clean Catch Urine Culture - Final NO GROWTH OBTAINED 09/02/18 12:11 Blood - Peripheral Venous Blood Culture - Preliminary NO GROWTH OBTAINED AFTER 96 HOURS, INCUBATION TO CONTINUE FOR 1 DAYS. 09/02/18 12:11 Blood - Peripheral Venous Blood Culture - Preliminary NO GROWTH OBTAINED AFTER 96 HOURS, INCUBATION TO CONTINUE FOR 1 DAYS. Impression 1. MAJOR 2. nephrolithiasis 3. hydronephrosis 4. diarrhea 5. hyponatremia 6. HTN 7. DM 8. HLD Plan - pt is s/p cysto with left uretral stent - cont with saline - repeat labs in am - abx per ID - follow repeat cultures - monitor renal function - will follow Dr De La Fuente
--- NOTE | 2018-09-06 13:10 | OP ---
DATE OF OPERATION: 09/06/2018 PREOPERATIVE DIAGNOSIS: Obstructing stone, left proximal ureter. POSTOPERATIVE DIAGNOSIS: Obstructing stone, left proximal ureter. PROCEDURE: Cystoscopy, retrograde pyelogram, left ureteral stent placement. SURGEON: Lisa Valentin MD INDICATION: Patient is a 78-year-old female who underwent lithotripsy for stones recently now with obstructing stones and fever and elevated white count. She was taken to the OR for cystoscopy and stent placement. DESCRIPTION OF PROCEDURE: Patient was taken to the OR and placed supine on the table. After cardiac monitoring was administered and general anesthesia was established, she was prepped and draped in dorsal lithotomy position. She was given Zosyn IV. The cystoscope was introduced without difficulty, and the bladder was visualized. No tumors or stones were noted in the bladder. Attention was turned to the left ureteral orifice. This was intubated with ureteral catheter. Contrast was injected for retrograde pyelogram. Pyelogram revealed hydronephrosis. A guidewire was advanced into the left renal pelvis. Over the guidewire, a [id number] 22-cm double pigtail stent was then advanced in a monorail fashion. Fluoroscopy confirmed the stent being in good position. The patient was then awoken from anesthesia, transferred to recovery in stable condition. There were no complications. Estimated blood loss was minimal. LISA VALENTIN M.D. [id number]
--- NOTE | 2018-09-06 18:09 | PN ---
Progress Note, Physician - Current Medication List Current Medications: Active Medications Acetaminophen (Tylenol -) 650 mg PO Q6H PRN PRN Reason: FEVER Docusate Sodium (Colace -) 100 mg PO BID [facility] Fentanyl (Sublimaze Injection -) 25 mcg IVPUSH [id number] PRN PRN Reason: PAIN-PACU ORDER X 4 DOSES ONLY Lactated Ringer's (Lactated Ringers Solution) 1,000 mls @ 75 mls/hr IV ASDIR [facility] Last Admin: 09/06/18 11:55 Dose: Not Given Piperacillin Sod/Tazobactam (Sod 2.25 gm/ Dextrose) 50 mls @ 100 mls/hr IVPB Q8H-IV [facility]; Protocol Last Admin: 09/06/18 17:37 Dose: 100 mls/hr Sodium Chloride (Normal Saline -) 1,000 mls @ 75 mls/hr IV ASDIR [facility] Last Admin: 09/06/18 12:15 Dose: 75 mls/hr Insulin Aspart (Novolog Vial Sliding Scale -) 1 vial SQ ACHS [facility]; Protocol Last Admin: 09/06/18 17:36 Dose: 4 units Ondansetron HCl (Zofran Injection) 4 mg IVPUSH Q6H PRN PRN Reason: NAUSEA AND/OR VOMITING Polyethylene Glycol (Miralax (For Daily Use) -) 17 gm PO BID [facility] Propranolol HCl (Inderal -) 10 mg PO BID [facility] Rosuvastatin Calcium (Crestor -) 5 mg PO HS [facility] - Objective Vital Signs: Vital Signs Temperature 99.1 F 09/06/18 14:55 Pulse Rate 104 H 09/06/18 14:55 Respiratory Rate 18 09/06/18 14:55 Blood Pressure 125/52 L 09/06/18 14:55 O2 Sat by Pulse Oximetry (%) 98 09/06/18 12:15 Constitutional: Yes: No Distress HENT: Yes: Atraumatic Neck: Yes: Supple Cardiovascular: Yes: Regular Rate and Rhythm Respiratory: Yes: CTA Bilaterally Gastrointestinal: Yes: Normal Bowel Sounds Extremities: Yes: WNL Edema: No Neurological: Yes: Alert, Oriented Labs: CBC, BMP 09/05/18 06:10 09/06/18 06:00 INR, PTT INR 1.08 (0.83-1.09) 09/02/18 12:11 Problem List - Problems (1) Diabetes Assessment/Plan: elevated cr and low gfr have to hold metformin check bgms.. Code(s): E11.9 - TYPE 2 DIABETES MELLITUS WITHOUT COMPLICATIONS (2) Fever Assessment/Plan: on abx cxs noted Code(s): R50.9 - FEVER, UNSPECIFIED Qualifiers: Fever type: other (3) HTN (hypertension) Code(s): I10 - ESSENTIAL (PRIMARY) HYPERTENSION Qualifiers: Hypertension type: essential hypertension Qualified Code(s): I10 - Essential (primary) hypertension (4) Hyperlipemia Assessment/Plan: on meds Code(s): E78.5 - HYPERLIPIDEMIA, UNSPECIFIED Qualifiers: Hyperlipidemia type: pure hypercholesterolemia Qualified Code(s): E78.00 - Pure hypercholesterolemia, unspecified; E78.0 - Pure hypercholesterolemia (5) Constipation Code(s): K59.00 - CONSTIPATION, UNSPECIFIED (6) Hydronephrosis concurrent with and due to calculi of kidney and ureter Assessment/Plan: s/p uretral stent today Code(s): N13.2 - HYDRONEPHROSIS WITH RENAL AND URETERAL CALCULOUS OBSTRUCTION
[2018-09-06] MEDS: ROSUVASTATIN CA 5 MG TABLET (FP) PO SCH (21:58)
[2018-09-07] MEDS ORDERED: PIPERACILLIN/TAZOBACTAM 2.25 GM VIAL IVPB ONE ×3 (01:09→16:00)
[2018-09-07] MEDS ORDERED: DEXTROSE 5%-WATER - 50 ML IVPB ONE ×3 (01:10→16:00)
[2018-09-07] MEDS: PIPERACILLIN/TAZOB 2.25 GM 2.25 GM in DEXTROSE 5%-WATER - 50 ML IVPB SCH ×3 (01:11→17:09)
[2018-09-07] MEDS: INSULIN SLIDING SCALE (NOVOLOG) 1 VIAL SQ SCH ×4 (06:48→21:25)
[2018-09-07 08:07] LABS: BASO % 0.2 % (0-2.0); HEMATOCRIT 28.1 % (32.4-45.2); HEMOGLOBIN 9.7 GM/dL (10.7-15.3); LYMPH % 7.8 % (8-40); MCH 30.4 pg (25.7-33.7); MCHC 34.7 g/dl (32.0-36.0); MEAN CELL VOLUME 87.6 fl (80-96); PLATELET COUNT 393 K/MM3 (134-434); RBC 3.21 M/mm3 (3.60-5.2); RDW 14.8 % (11.6-15.6); WHITE BLOOD COUNT 10.6 K/mm3 (4.0-10.0)
[2018-09-07 08:48] LABS: ALBUMIN 2.5 g/dl (3.4-5.0); ALK PHOS 120 U/L (45-117); ANION GAP 12 MMOL/L (8-16); BILIRUBIN,TOTAL 0.4 mg/dL (0.2-1); BLOOD UREA NITROGEN 24 mg/dL (7-18); CALCIUM 7.8 mg/dL (8.5-10.1); CHLORIDE 106 mmol/L (98-107); CO2 19 mmol/L (21-32); CREATININE 1.5 mg/dL (0.55-1.3); GLUCOSE,RANDOM 133 mg/dL (74-106); POTASSIUM 4.5 mmol/L (3.5-5.1); SGOT/AST 26 U/L (15-37); SGPT/ALT 36 U/L (13-61); SODIUM 137 mmol/L (136-145); TOT PROT 6.6 g/dl (6.4-8.2)
--- NOTE | 2018-09-07 08:54 | PN ---
Progress Note (short form) - Note Progress Note: ANESTHESIOLOGY POST-OP CHECK 78F s/p cystocopy and stent under general anesthesia, POD #1: no acute complaints, denies N/V, denies pain. Vital Signs Temperature 98.5 F 09/07/18 06:25 Pulse Rate 101 H 09/07/18 06:25 Respiratory Rate 18 09/07/18 06:25 Blood Pressure 130/62 09/07/18 06:25 O2 Sat by Pulse Oximetry (%) 98 09/06/18 21:00 Active Medications Acetaminophen (Tylenol -) 650 mg PO Q6H PRN PRN Reason: FEVER Docusate Sodium (Colace -) 100 mg PO BID [facility] Last Admin: 09/06/18 21:58 Dose: 100 mg Fentanyl (Sublimaze Injection -) 25 mcg IVPUSH [id number] PRN PRN Reason: PAIN-PACU ORDER X 4 DOSES ONLY Lactated Ringer's (Lactated Ringers Solution) 1,000 mls @ 75 mls/hr IV ASDIR [facility] Last Admin: 09/06/18 11:55 Dose: Not Given Piperacillin Sod/Tazobactam (Sod 2.25 gm/ Dextrose) 50 mls @ 100 mls/hr IVPB Q8H-IV [facility]; Protocol Last Admin: 09/07/18 01:11 Dose: 100 mls/hr Sodium Chloride (Normal Saline -) 1,000 mls @ 75 mls/hr IV ASDIR [facility] Last Admin: 09/06/18 12:15 Dose: 75 mls/hr Insulin Aspart (Novolog Vial Sliding Scale -) 1 vial SQ ACHS [facility]; Protocol Last Admin: 09/07/18 06:48 Dose: 4 units Ondansetron HCl (Zofran Injection) 4 mg IVPUSH Q6H PRN PRN Reason: NAUSEA AND/OR VOMITING Polyethylene Glycol (Miralax (For Daily Use) -) 17 gm PO BID [facility] Last Admin: 09/06/18 22:02 Dose: 17 gm Propranolol HCl (Inderal -) 10 mg PO BID [facility] Last Admin: 09/06/18 21:58 Dose: 10 mg Rosuvastatin Calcium (Crestor -) 5 mg PO HS [facility] Last Admin: 09/06/18 21:58 Dose: 5 mg Gen: awake, alert No apparent anesthesia complications. Pain controlled. Continue management as per primary team.
[2018-09-07] MEDS: POLYETHYLENE GLYCOL 3350 119 GM BTL PO SCH ×2 (09:41→21:25)
[2018-09-07] MEDS: DOCUSATE SODIUM 100 MG CAPSULE (FP) PO SCH ×2 (09:41→21:25)
--- NOTE | 2018-09-07 10:16 | PN ---
Progress Note, Physician History of Present Illness: patient doing much better wbc trending down cr trending down remaining afebrile - Current Medication List Current Medications: Active Medications Acetaminophen (Tylenol -) 650 mg PO Q6H PRN PRN Reason: FEVER Docusate Sodium (Colace -) 100 mg PO BID [facility] Last Admin: 09/07/18 09:41 Dose: 100 mg Fentanyl (Sublimaze Injection -) 25 mcg IVPUSH [id number] PRN PRN Reason: PAIN-PACU ORDER X 4 DOSES ONLY Lactated Ringer's (Lactated Ringers Solution) 1,000 mls @ 75 mls/hr IV ASDIR [facility] Last Admin: 09/06/18 11:55 Dose: Not Given Piperacillin Sod/Tazobactam (Sod 2.25 gm/ Dextrose) 50 mls @ 100 mls/hr IVPB Q8H-IV [facility]; Protocol Last Admin: 09/07/18 09:51 Dose: 100 mls/hr Sodium Chloride (Normal Saline -) 1,000 mls @ 75 mls/hr IV ASDIR [facility] Last Admin: 09/06/18 12:15 Dose: 75 mls/hr Insulin Aspart (Novolog Vial Sliding Scale -) 1 vial SQ ACHS [facility]; Protocol Last Admin: 09/07/18 06:48 Dose: 4 units Ondansetron HCl (Zofran Injection) 4 mg IVPUSH Q6H PRN PRN Reason: NAUSEA AND/OR VOMITING Polyethylene Glycol (Miralax (For Daily Use) -) 17 gm PO BID [facility] Last Admin: 09/07/18 09:41 Dose: Not Given Propranolol HCl (Inderal -) 10 mg PO BID [facility] Last Admin: 09/07/18 09:41 Dose: 10 mg Rosuvastatin Calcium (Crestor -) 5 mg PO HS [facility] Last Admin: 09/06/18 21:58 Dose: 5 mg - Objective Vital Signs: Vital Signs Temperature 98.5 F 09/07/18 06:25 Pulse Rate 101 H 09/07/18 06:25 Respiratory Rate 18 09/07/18 06:25 Blood Pressure 130/62 09/07/18 06:25 O2 Sat by Pulse Oximetry (%) 98 09/06/18 21:00 Constitutional: Yes: No Distress, Calm Cardiovascular: Yes: Regular Rate and Rhythm Respiratory: Yes: Regular, CTA Bilaterally Gastrointestinal: Yes: Normal Bowel Sounds, Soft Musculoskeletal: Yes: WNL Extremities: Yes: WNL Neurological: Yes: Alert, Oriented Psychiatric: Yes: Alert, Oriented Labs: CBC, BMP 09/07/18 06:00 09/07/18 06:00 INR, PTT INR 1.08 (0.83-1.09) 09/02/18 12:11 Assessment/Plan Problem List - Problems (1) Diabetes Code(s): E11.9 - TYPE 2 DIABETES MELLITUS WITHOUT COMPLICATIONS (2) Fever Code(s): R50.9 - FEVER, UNSPECIFIED Qualifiers: Fever type: other (3) HTN (hypertension) Code(s): I10 - ESSENTIAL (PRIMARY) HYPERTENSION (4) Hyperlipemia Code(s): E78.5 - HYPERLIPIDEMIA, UNSPECIFIED 5 renal insufficiency plan continue abx await for wbc to normalize will deescalate abx monitor cr stable
[2018-09-07] MEDS: LACTATED RINGERS SOLUTION 1,000 ML IV SCH (11:17)
[2018-09-07] MEDS: SODIUM CHLORIDE 1,000 ML IV SCH ×2 (11:17→16:25)
--- NOTE | 2018-09-07 11:38 | PN ---
Progress Note (short form) - Note Progress Note: RENAL pt awake and alert comfortable Last Vital Signs Temp Pulse Resp BP Pulse Ox 98.5 F 101 H 18 130/62 98 09/07/18 06:25 09/07/18 06:25 09/07/18 06:25 09/07/18 06:25 09/06/18 21:00 lungs clear cvs s1s2 rr abd soft ext no edema neuro a+ox3 CBC, BMP 09/07/18 06:00 09/07/18 06:00 Current Medications Generic Name Dose Route Start Last Admin Trade Name Freq PRN Reason Stop Dose Admin Acetaminophen 650 mg 09/06/18 11:07 Tylenol - PO Q6H PRN FEVER Docusate Sodium 100 mg 09/06/18 22:00 09/07/18 09:41 Colace - PO 100 mg BID [facility] Administration Fentanyl 25 mcg 09/06/18 10:55 Sublimaze Injection - IVPUSH [id number] PRN PAIN-PACU ORDER X 4 DOSES ONLY Lactated Ringer's 1,000 mls @ 75 mls/hr 09/06/18 11:00 09/07/18 11:17 Lactated Ringers Solution IV Not Given ASDIR [facility] Piperacillin Sod/Tazobactam 50 mls @ 100 mls/hr 09/06/18 18:00 09/07/18 09:51 Sod 2.25 gm/ Dextrose IVPB 100 mls/hr Q8H-IV [facility] Administration Protocol Sodium Chloride 1,000 mls @ 75 mls/hr 09/06/18 11:07 09/07/18 11:17 Normal Saline - IV Not Given ASDIR [facility] Insulin Aspart 1 vial 09/06/18 16:30 09/07/18 11:16 Novolog Vial Sliding Scale - SQ 6 units ACHS [facility] Administration Protocol Ondansetron HCl 4 mg 09/06/18 10:55 Zofran Injection IVPUSH Q6H PRN NAUSEA AND/OR VOMITING Polyethylene Glycol 17 gm 09/06/18 22:00 09/07/18 09:41 Miralax (For Daily Use) - PO Not Given BID [facility] Propranolol HCl 10 mg 09/06/18 22:00 09/07/18 09:41 Inderal - PO 10 mg BID [facility] Administration Rosuvastatin Calcium 5 mg 09/06/18 22:00 09/06/18 21:58 Crestor - PO 5 mg HS [facility] Administration Impression 1. MAJOR 2. nephrolithiasis 3. hydronephrosis 4. diarrhea 5. hyponatremia resolved 6. HTN 7. DM 8. HLD Plan - pt is s/p cysto with left uretral stent - cont with saline - abx per ID - renal functionimproving. Continue fluids MV
--- NOTE | 2018-09-07 11:38 | PN ---
Progress Note (short form) - Note Progress Note: no flank pain s/p cysto/left stent yesterday WBC and creatinine trending down cont abx as per ID outpt f/u with Dr Lainez
[2018-09-07] MEDS: ROSUVASTATIN CA 5 MG TABLET (FP) PO SCH (21:25)
--- NOTE | 2018-09-07 22:04 | PN ---
Progress Note, Physician History of Present Illness: No new complaints - Current Medication List Current Medications: Active Medications Acetaminophen (Tylenol -) 650 mg PO Q6H PRN PRN Reason: FEVER Docusate Sodium (Colace -) 100 mg PO BID [facility] Last Admin: 09/07/18 21:25 Dose: Not Given Fentanyl (Sublimaze Injection -) 25 mcg IVPUSH [id number] PRN PRN Reason: PAIN-PACU ORDER X 4 DOSES ONLY Piperacillin Sod/Tazobactam (Sod 2.25 gm/ Dextrose) 50 mls @ 100 mls/hr IVPB Q8H-IV [facility]; Protocol Last Admin: 09/07/18 17:09 Dose: 100 mls/hr Sodium Chloride (Normal Saline -) 1,000 mls @ 75 mls/hr IV ASDIR [facility] Last Admin: 09/07/18 16:25 Dose: 75 mls/hr Insulin Aspart (Novolog Vial Sliding Scale -) 1 vial SQ ACHS [facility]; Protocol Last Admin: 09/07/18 21:25 Dose: 6 units Ondansetron HCl (Zofran Injection) 4 mg IVPUSH Q6H PRN PRN Reason: NAUSEA AND/OR VOMITING Polyethylene Glycol (Miralax (For Daily Use) -) 17 gm PO BID [facility] Last Admin: 09/07/18 21:25 Dose: Not Given Propranolol HCl (Inderal -) 10 mg PO BID [facility] Last Admin: 09/07/18 21:25 Dose: 10 mg Rosuvastatin Calcium (Crestor -) 5 mg PO HS [facility] Last Admin: 09/07/18 21:25 Dose: 5 mg - Objective Vital Signs: Vital Signs Temperature 98.2 F 09/07/18 13:43 Pulse Rate 97 H 09/07/18 13:43 Respiratory Rate 20 09/07/18 13:43 Blood Pressure 120/70 09/07/18 13:43 O2 Sat by Pulse Oximetry (%) 100 09/07/18 09:00 Neck: Yes: WNL, Supple Cardiovascular: Yes: WNL, Regular Rate and Rhythm Respiratory: Yes: WNL, Regular, CTA Bilaterally Gastrointestinal: Yes: WNL, Normal Bowel Sounds, Soft Labs: CBC, BMP 09/07/18 06:00 09/07/18 06:00 INR, PTT INR 1.08 (0.83-1.09) 09/02/18 12:11 Problem List - Problems (1) Hydronephrosis concurrent with and due to calculi of kidney and ureter Assessment/Plan: S/P cysto and Lt ureteral stent Cont IV zosyn Cultures have been negative Code(s): N13.2 - HYDRONEPHROSIS WITH RENAL AND URETERAL CALCULOUS OBSTRUCTION (2) Acute kidney injury Assessment/Plan: Cont to monitor electrolytes Code(s): N17.9 - ACUTE KIDNEY FAILURE, UNSPECIFIED (3) Anemia Assessment/Plan: Cont to monitor Code(s): D64.9 - ANEMIA, UNSPECIFIED (4) Diabetes Assessment/Plan: Cont sliding scale w/ coverage Code(s): E11.9 - TYPE 2 DIABETES MELLITUS WITHOUT COMPLICATIONS (5) HTN (hypertension) Assessment/Plan: No further palpitations Cont inderal Code(s): I10 - ESSENTIAL (PRIMARY) HYPERTENSION Qualifiers: Hypertension type: essential hypertension Qualified Code(s): I10 - Essential (primary) hypertension (6) Hyperlipemia Assessment/Plan: Cont crestor Code(s): E78.5 - HYPERLIPIDEMIA, UNSPECIFIED Qualifiers: Hyperlipidemia type: pure hypercholesterolemia Qualified Code(s): E78.00 - Pure hypercholesterolemia, unspecified; E78.0 - Pure hypercholesterolemia (7) Constipation Assessment/Plan: Cont miralax Code(s): K59.00 - CONSTIPATION, UNSPECIFIED
[2018-09-08] MEDS ORDERED: PIPERACILLIN/TAZOBACTAM 2.25 GM VIAL IVPB ONE ×3 (01:12→17:33)
[2018-09-08] MEDS ORDERED: DEXTROSE 5%-WATER - 50 ML IVPB ONE ×3 (01:12→17:33)
[2018-09-08] MEDS: PIPERACILLIN/TAZOB 2.25 GM 2.25 GM in DEXTROSE 5%-WATER - 50 ML IVPB SCH ×3 (01:17→17:53)
[2018-09-08] MEDS: SODIUM CHLORIDE 1,000 ML IV SCH (05:30)
[2018-09-08] MEDS: INSULIN SLIDING SCALE (NOVOLOG) 1 VIAL SQ SCH ×4 (06:25→21:08)
--- NOTE | 2018-09-08 09:52 | PN ---
Progress Note (short form) - Note Progress Note: RENAL pt awake and alert comfortable c/o swelling of lower extremities Last Vital Signs Temp Pulse Resp BP Pulse Ox 97.7 F 100 H 18 140/70 99 09/08/18 06:11 09/08/18 06:11 09/08/18 06:11 09/08/18 06:11 09/07/18 21:00 lungs clear cvs s1s2 rr abd soft ext +1 edema neuro a+ox3 CBC, BMP 09/07/18 06:00 09/07/18 06:00 Current Medications Generic Name Dose Route Start Last Admin Trade Name Freq PRN Reason Stop Dose Admin Acetaminophen 650 mg 09/06/18 11:07 Tylenol - PO Q6H PRN FEVER Docusate Sodium 100 mg 09/06/18 22:00 09/07/18 21:25 Colace - PO Not Given BID [facility] Fentanyl 25 mcg 09/06/18 10:55 Sublimaze Injection - IVPUSH [id number] PRN PAIN-PACU ORDER X 4 DOSES ONLY Piperacillin Sod/Tazobactam 50 mls @ 100 mls/hr 09/06/18 18:00 09/08/18 01: 17 EST Sod 2.25 gm/ Dextrose IVPB 100 mls/hr Q8H-IV [facility] Administration Protocol Sodium Chloride 1,000 mls @ 75 mls/hr 09/06/18 11:07 09/08/18 05:30 Normal Saline - IV 75 mls/hr ASDIR [facility] Administration Insulin Aspart 1 vial 09/06/18 16:30 09/08/18 06:25 Novolog Vial Sliding Scale - SQ 2 units ACHS [facility] Administration Protocol Ondansetron HCl 4 mg 09/06/18 10:55 Zofran Injection IVPUSH Q6H PRN NAUSEA AND/OR VOMITING Polyethylene Glycol 17 gm 09/06/18 22:00 09/07/18 21:25 Miralax (For Daily Use) - PO Not Given BID [facility] Propranolol HCl 10 mg 09/06/18 22:00 09/07/18 21:25 Inderal - PO 10 mg BID [facility] Administration Rosuvastatin Calcium 5 mg 09/06/18 22:00 09/07/18 21:25 Crestor - PO 5 mg HS [facility] Administration Impression 1. MAJOR 2. nephrolithiasis 3. hydronephrosis 4. diarrhea 5. hyponatremia resolved 6. HTN 7. DM 8. HLD Plan - pt is s/p cysto with left uretral stent - dc saline - abx per ID - monitor renal function MV
[2018-09-08] MEDS: POLYETHYLENE GLYCOL 3350 119 GM BTL PO SCH ×2 (10:12→21:13)
[2018-09-08] MEDS: DOCUSATE SODIUM 100 MG CAPSULE (FP) PO SCH ×2 (10:12→21:13)
--- NOTE | 2018-09-08 11:32 | PN ---
Progress Note, Physician History of Present Illness: patient stable doing well developed edema of the foot - Current Medication List Current Medications: Active Medications Acetaminophen (Tylenol -) 650 mg PO Q6H PRN PRN Reason: FEVER Docusate Sodium (Colace -) 100 mg PO BID [facility] Last Admin: 09/08/18 10:12 Dose: Not Given Fentanyl (Sublimaze Injection -) 25 mcg IVPUSH [id number] PRN PRN Reason: PAIN-PACU ORDER X 4 DOSES ONLY Piperacillin Sod/Tazobactam (Sod 2.25 gm/ Dextrose) 50 mls @ 100 mls/hr IVPB Q8H-IV [facility]; Protocol Last Admin: 09/08/18 10:11 Dose: 100 mls/hr Insulin Aspart (Novolog Vial Sliding Scale -) 1 vial SQ ACHS [facility]; Protocol Last Admin: 09/08/18 06:25 Dose: 2 units Ondansetron HCl (Zofran Injection) 4 mg IVPUSH Q6H PRN PRN Reason: NAUSEA AND/OR VOMITING Polyethylene Glycol (Miralax (For Daily Use) -) 17 gm PO BID [facility] Last Admin: 09/08/18 10:12 Dose: Not Given Propranolol HCl (Inderal -) 10 mg PO BID [facility] Last Admin: 09/08/18 10:12 Dose: 10 mg Rosuvastatin Calcium (Crestor -) 5 mg PO HS [facility] Last Admin: 09/07/18 21:25 Dose: 5 mg - Objective Vital Signs: Vital Signs Temperature 98.4 F 09/08/18 10:00 Pulse Rate 103 H 09/08/18 10:00 Respiratory Rate 18 09/08/18 10:00 Blood Pressure 159/89 09/08/18 10:00 O2 Sat by Pulse Oximetry (%) 99 09/07/18 21:00 Constitutional: Yes: No Distress, Calm Cardiovascular: Yes: Regular Rate and Rhythm Respiratory: Yes: Regular, CTA Bilaterally Gastrointestinal: Yes: Normal Bowel Sounds, Soft Musculoskeletal: Yes: WNL Extremities: Yes: WNL Edema: LLE: 1+, RLE: 1+ Neurological: Yes: Alert, Oriented Psychiatric: Yes: Alert, Oriented Labs: CBC, BMP 09/07/18 06:00 09/07/18 06:00 INR, PTT INR 1.08 (0.83-1.09) 09/02/18 12:11 Assessment/Plan Problem List - Problems (1) Diabetes Code(s): E11.9 - TYPE 2 DIABETES MELLITUS WITHOUT COMPLICATIONS (2) Fever Code(s): R50.9 - FEVER, UNSPECIFIED Qualifiers: Fever type: other (3) HTN (hypertension) Code(s): I10 - ESSENTIAL (PRIMARY) HYPERTENSION (4) Hyperlipemia Code(s): E78.5 - HYPERLIPIDEMIA, UNSPECIFIED 5 renal insufficiency plan continue abx will deescalate abx tomorrow elevation of legs stop iv fluids will see wbc tomorrow
--- NOTE | 2018-09-08 16:01 | PN ---
Progress Note, Physician History of Present Illness: Afebrile, no flank pain, denies palpitations, post cysto and left ureteral stent placement. Reports LE swelling, IVF d/mary kate. - Current Medication List Current Medications: Active Medications Acetaminophen (Tylenol -) 650 mg PO Q6H PRN PRN Reason: FEVER Docusate Sodium (Colace -) 100 mg PO BID [facility] Last Admin: 09/08/18 10:12 Dose: Not Given Fentanyl (Sublimaze Injection -) 25 mcg IVPUSH [id number] PRN PRN Reason: PAIN-PACU ORDER X 4 DOSES ONLY Piperacillin Sod/Tazobactam (Sod 2.25 gm/ Dextrose) 50 mls @ 100 mls/hr IVPB Q8H-IV [facility]; Protocol Last Admin: 09/08/18 10:11 Dose: 100 mls/hr Insulin Aspart (Novolog Vial Sliding Scale -) 1 vial SQ ACHS [facility]; Protocol Last Admin: 09/08/18 12:17 Dose: 2 units Ondansetron HCl (Zofran Injection) 4 mg IVPUSH Q6H PRN PRN Reason: NAUSEA AND/OR VOMITING Polyethylene Glycol (Miralax (For Daily Use) -) 17 gm PO BID [facility] Last Admin: 09/08/18 10:12 Dose: Not Given Propranolol HCl (Inderal -) 10 mg PO BID [facility] Last Admin: 09/08/18 10:12 Dose: 10 mg Rosuvastatin Calcium (Crestor -) 5 mg PO HS [facility] Last Admin: 09/07/18 21:25 Dose: 5 mg - Objective Vital Signs: Vital Signs Temperature 98.5 F 09/08/18 13:17 Pulse Rate 101 H 09/08/18 13:17 Respiratory Rate 20 09/08/18 13:17 Blood Pressure 142/66 09/08/18 13:17 O2 Sat by Pulse Oximetry (%) 99 09/07/18 21:00 Constitutional: Yes: No Distress, Calm Neck: Yes: Supple Cardiovascular: Yes: Regular Rate and Rhythm Respiratory: Yes: Regular, CTA Bilaterally Gastrointestinal: Yes: Normal Bowel Sounds, Soft Edema: No Labs: CBC, BMP 09/07/18 06:00 09/07/18 06:00 INR, PTT INR 1.08 (0.83-1.09) 09/02/18 12:11 Problem List - Problems (1) Hydronephrosis concurrent with and due to calculi of kidney and ureter Code(s): N13.2 - HYDRONEPHROSIS WITH RENAL AND URETERAL CALCULOUS OBSTRUCTION (2) Acute kidney injury Code(s): N17.9 - ACUTE KIDNEY FAILURE, UNSPECIFIED (3) HTN (hypertension) Code(s): I10 - ESSENTIAL (PRIMARY) HYPERTENSION Qualifiers: Hypertension type: essential hypertension Qualified Code(s): I10 - Essential (primary) hypertension (4) Hyperlipemia Code(s): E78.5 - HYPERLIPIDEMIA, UNSPECIFIED Qualifiers: Hyperlipidemia type: pure hypercholesterolemia Qualified Code(s): E78.00 - Pure hypercholesterolemia, unspecified; E78.0 - Pure hypercholesterolemia (5) Palpitations Code(s): R00.2 - PALPITATIONS (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 Palpitations 2. HTN 3. Hypercholesterolemia 4. DM 5. Nephrolithiasis with hydronephrosis s/p lithotripsy 08/27 and cysto/left stent placement 09/05 6. Acute on CKD improving 7. Hyponatremia PLAN: 1. Continue Inderal 10 bid and Rosuvastatin 5 qhs 2. Resume metformin once renal fxn recovers 3. Complete empiric abx course for sepsis source
--- NOTE | 2018-09-08 19:55 | PN ---
Progress Note, Physician History of Present Illness: No new complaints - Current Medication List Current Medications: Active Medications Acetaminophen (Tylenol -) 650 mg PO Q6H PRN PRN Reason: FEVER Docusate Sodium (Colace -) 100 mg PO BID [facility] Last Admin: 09/08/18 10:12 Dose: Not Given Fentanyl (Sublimaze Injection -) 25 mcg IVPUSH [id number] PRN PRN Reason: PAIN-PACU ORDER X 4 DOSES ONLY Piperacillin Sod/Tazobactam (Sod 2.25 gm/ Dextrose) 50 mls @ 100 mls/hr IVPB Q8H-IV [facility]; Protocol Last Admin: 09/08/18 17:53 Dose: 100 mls/hr Insulin Aspart (Novolog Vial Sliding Scale -) 1 vial SQ ACHS [facility]; Protocol Last Admin: 09/08/18 17:54 Dose: 4 units Ondansetron HCl (Zofran Injection) 4 mg IVPUSH Q6H PRN PRN Reason: NAUSEA AND/OR VOMITING Polyethylene Glycol (Miralax (For Daily Use) -) 17 gm PO BID [facility] Last Admin: 09/08/18 10:12 Dose: Not Given Propranolol HCl (Inderal -) 10 mg PO BID [facility] Last Admin: 09/08/18 10:12 Dose: 10 mg Rosuvastatin Calcium (Crestor -) 5 mg PO HS [facility] Last Admin: 09/07/18 21:25 Dose: 5 mg - Objective Vital Signs: Vital Signs Temperature 98.0 F 09/08/18 17:16 Pulse Rate 89 09/08/18 17:16 Respiratory Rate 18 09/08/18 17:16 Blood Pressure 150/62 09/08/18 17:16 O2 Sat by Pulse Oximetry (%) 99 09/07/18 21:00 Neck: Yes: WNL, Supple Cardiovascular: Yes: WNL, Regular Rate and Rhythm Respiratory: Yes: WNL, Regular Gastrointestinal: Yes: WNL, Normal Bowel Sounds, Soft Labs: CBC, BMP 09/07/18 06:00 09/07/18 06:00 INR, PTT INR 1.08 (0.83-1.09) 09/02/18 12:11 Problem List - Problems (1) Hydronephrosis concurrent with and due to calculi of kidney and ureter Assessment/Plan: S/P cysto and Lt ureteral stent Cont IV zosyn Cultures have been negative Code(s): N13.2 - HYDRONEPHROSIS WITH RENAL AND URETERAL CALCULOUS OBSTRUCTION (2) Acute kidney injury Assessment/Plan: Cont to monitor electrolytes Code(s): N17.9 - ACUTE KIDNEY FAILURE, UNSPECIFIED (3) Anemia Assessment/Plan: Cont to monitor Code(s): D64.9 - ANEMIA, UNSPECIFIED (4) Diabetes Assessment/Plan: Cont sliding scale w/ coverage Code(s): E11.9 - TYPE 2 DIABETES MELLITUS WITHOUT COMPLICATIONS (5) HTN (hypertension) Assessment/Plan: No further palpitations Cont inderal Code(s): I10 - ESSENTIAL (PRIMARY) HYPERTENSION Qualifiers: Hypertension type: essential hypertension Qualified Code(s): I10 - Essential (primary) hypertension (6) Hyperlipemia Assessment/Plan: Cont crestor Code(s): E78.5 - HYPERLIPIDEMIA, UNSPECIFIED Qualifiers: Hyperlipidemia type: pure hypercholesterolemia Qualified Code(s): E78.00 - Pure hypercholesterolemia, unspecified; E78.0 - Pure hypercholesterolemia (7) Constipation Assessment/Plan: Cont miralax Code(s): K59.00 - CONSTIPATION, UNSPECIFIED
[2018-09-08] MEDS: ROSUVASTATIN CA 5 MG TABLET (FP) PO SCH (21:08)
[2018-09-09] MEDS ORDERED: PIPERACILLIN/TAZOBACTAM 2.25 GM VIAL IVPB ONE ×2 (02:16→08:31)
[2018-09-09] MEDS ORDERED: DEXTROSE 5%-WATER - 50 ML IVPB ONE ×2 (02:17→08:31)
[2018-09-09] MEDS: PIPERACILLIN/TAZOB 2.25 GM 2.25 GM in DEXTROSE 5%-WATER - 50 ML IVPB SCH ×2 (02:33→09:13)
[2018-09-09] MEDS: INSULIN SLIDING SCALE (NOVOLOG) 1 VIAL SQ SCH ×4 (06:17→21:34)
[2018-09-09 07:12] LABS: HEMATOCRIT 29.8 % (32.4-45.2); HEMOGLOBIN 10.2 GM/dL (10.7-15.3); MCH 30.3 pg (25.7-33.7); MCHC 34.4 g/dl (32.0-36.0); MEAN CELL VOLUME 88.2 fl (80-96); MEAN PLT VOLUME 8.8 fl (7.5-11.1); PLATELET COUNT 369 K/MM3 (134-434); RBC 3.38 M/mm3 (3.60-5.2); RDW 14.9 % (11.6-15.6); WHITE BLOOD COUNT 7.3 K/mm3 (4.0-10.0)
[2018-09-09 07:23] LABS: ANION GAP 11 MMOL/L (8-16); BLOOD UREA NITROGEN 19 mg/dL (7-18); CALCIUM 8.3 mg/dL (8.5-10.1); CHLORIDE 106 mmol/L (98-107); CO2 22 mmol/L (21-32); CREATININE 1.1 mg/dL (0.55-1.3); GLUCOSE,RANDOM 132 mg/dL (74-106); POTASSIUM 4.4 mmol/L (3.5-5.1); SODIUM 139 mmol/L (136-145)
[2018-09-09] MEDS: DOCUSATE SODIUM 100 MG CAPSULE (FP) PO SCH (09:12)
[2018-09-09] MEDS: POLYETHYLENE GLYCOL 3350 119 GM BTL PO SCH (09:13)
--- NOTE | 2018-09-09 10:21 | PN ---
Progress Note, Physician History of Present Illness: Afebrile, no flank pain, denies palpitations, post cysto and left ureteral stent placement. Reports LE swelling has improved. - Current Medication List Current Medications: Active Medications Acetaminophen (Tylenol -) 650 mg PO Q6H PRN PRN Reason: FEVER Docusate Sodium (Colace -) 100 mg PO BID [facility] Last Admin: 09/09/18 09:12 Dose: Not Given Fentanyl (Sublimaze Injection -) 25 mcg IVPUSH [id number] PRN PRN Reason: PAIN-PACU ORDER X 4 DOSES ONLY Piperacillin Sod/Tazobactam (Sod 2.25 gm/ Dextrose) 50 mls @ 100 mls/hr IVPB Q8H-IV [facility]; Protocol Last Admin: 09/09/18 09:13 Dose: 100 mls/hr Insulin Aspart (Novolog Vial Sliding Scale -) 1 vial SQ ACHS [facility]; Protocol Last Admin: 09/09/18 06:17 Dose: 2 units Ondansetron HCl (Zofran Injection) 4 mg IVPUSH Q6H PRN PRN Reason: NAUSEA AND/OR VOMITING Polyethylene Glycol (Miralax (For Daily Use) -) 17 gm PO BID [facility] Last Admin: 09/09/18 09:13 Dose: Not Given Propranolol HCl (Inderal -) 10 mg PO BID [facility] Last Admin: 09/09/18 09:13 Dose: 10 mg Rosuvastatin Calcium (Crestor -) 5 mg PO HS [facility] Last Admin: 09/08/18 21:08 Dose: 5 mg - Objective Vital Signs: Vital Signs Temperature 99 F 09/09/18 08:49 Pulse Rate 105 H 09/09/18 08:49 Respiratory Rate 18 09/09/18 08:49 Blood Pressure 148/71 09/09/18 08:49 O2 Sat by Pulse Oximetry (%) 99 09/07/18 21:00 Constitutional: Yes: No Distress, Calm, Thin Neck: Yes: Supple Cardiovascular: Yes: Regular Rate and Rhythm Respiratory: Yes: Regular, CTA Bilaterally Gastrointestinal: Yes: Normal Bowel Sounds, Soft Edema: No Labs: CBC, BMP 09/09/18 06:15 09/09/18 06:15 INR, PTT INR 1.08 (0.83-1.09) 09/02/18 12:11 Problem List - Problems (1) Hydronephrosis concurrent with and due to calculi of kidney and ureter Code(s): N13.2 - HYDRONEPHROSIS WITH RENAL AND URETERAL CALCULOUS OBSTRUCTION (2) Acute kidney injury Code(s): N17.9 - ACUTE KIDNEY FAILURE, UNSPECIFIED (3) HTN (hypertension) Code(s): I10 - ESSENTIAL (PRIMARY) HYPERTENSION Qualifiers: Hypertension type: essential hypertension Qualified Code(s): I10 - Essential (primary) hypertension (4) Hyperlipemia Code(s): E78.5 - HYPERLIPIDEMIA, UNSPECIFIED Qualifiers: Hyperlipidemia type: pure hypercholesterolemia Qualified Code(s): E78.00 - Pure hypercholesterolemia, unspecified; E78.0 - Pure hypercholesterolemia (5) Palpitations Code(s): R00.2 - PALPITATIONS (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 Palpitations 2. HTN 3. Hypercholesterolemia 4. DM 5. Nephrolithiasis with hydronephrosis s/p lithotripsy 08/27 and cysto/left stent placement 09/05 6. Acute on CKD improving 7. Hyponatremia PLAN: 1. Continue Inderal 10 bid and Rosuvastatin 5 qhs 2. Resume metformin once renal fxn recovers 3. Complete empiric abx course for sepsis source
--- NOTE | 2018-09-09 11:59 | PN ---
Progress Note, Physician History of Present Illness: patient doing well no complaints stable wbc has normalized - Current Medication List Current Medications: Active Medications Acetaminophen (Tylenol -) 650 mg PO Q6H PRN PRN Reason: FEVER Docusate Sodium (Colace -) 100 mg PO BID [facility] Last Admin: 09/09/18 09:12 Dose: Not Given Fentanyl (Sublimaze Injection -) 25 mcg IVPUSH [id number] PRN PRN Reason: PAIN-PACU ORDER X 4 DOSES ONLY Piperacillin Sod/Tazobactam (Sod 2.25 gm/ Dextrose) 50 mls @ 100 mls/hr IVPB Q8H-IV [facility]; Protocol Last Admin: 09/09/18 09:13 Dose: 100 mls/hr Insulin Aspart (Novolog Vial Sliding Scale -) 1 vial SQ ACHS [facility]; Protocol Last Admin: 09/09/18 11:05 Dose: 6 units Ondansetron HCl (Zofran Injection) 4 mg IVPUSH Q6H PRN PRN Reason: NAUSEA AND/OR VOMITING Polyethylene Glycol (Miralax (For Daily Use) -) 17 gm PO BID [facility] Last Admin: 09/09/18 09:13 Dose: Not Given Propranolol HCl (Inderal -) 10 mg PO BID [facility] Last Admin: 09/09/18 09:13 Dose: 10 mg Rosuvastatin Calcium (Crestor -) 5 mg PO HS [facility] Last Admin: 09/08/18 21:08 Dose: 5 mg - Objective Vital Signs: Vital Signs Temperature 99 F 09/09/18 08:49 Pulse Rate 105 H 09/09/18 08:49 Respiratory Rate 18 09/09/18 09:00 Blood Pressure 148/71 09/09/18 08:49 O2 Sat by Pulse Oximetry (%) 98 09/09/18 09:00 Constitutional: Yes: No Distress, Calm Cardiovascular: Yes: Regular Rate and Rhythm Respiratory: Yes: Regular, CTA Bilaterally Gastrointestinal: Yes: Normal Bowel Sounds, Soft Musculoskeletal: Yes: WNL Extremities: Yes: WNL Neurological: Yes: Alert, Oriented Psychiatric: Yes: Alert, Oriented Labs: CBC, BMP 09/09/18 06:15 09/09/18 06:15 INR, PTT INR 1.08 (0.83-1.09) 09/02/18 12:11 Assessment/Plan Problem List - Problems (1) Diabetes Code(s): E11.9 - TYPE 2 DIABETES MELLITUS WITHOUT COMPLICATIONS (2) Fever Code(s): R50.9 - FEVER, UNSPECIFIED Qualifiers: Fever type: other (3) HTN (hypertension) Code(s): I10 - ESSENTIAL (PRIMARY) HYPERTENSION (4) Hyperlipemia Code(s): E78.5 - HYPERLIPIDEMIA, UNSPECIFIED 5 renal insufficiency plan will switch to oral abx rest continue current mgmt patient doing well cr normalized wbc normalized
--- NOTE | 2018-09-09 12:56 | PN ---
Progress Note, Physician History of Present Illness: Pt seen and examined at bedside. She is awake and alert. She denies fevers or chills. She denies shortness of breath. - Current Medication List Current Medications: Active Medications Acetaminophen (Tylenol -) 650 mg PO Q6H PRN PRN Reason: FEVER Amoxicillin/Clavulanate Potassium (Augmentin - 875mg Tablet) 1 tab PO BID@0800, 1730 [facility] Docusate Sodium (Colace -) 100 mg PO BID [facility] Last Admin: 09/09/18 09:12 Dose: Not Given Fentanyl (Sublimaze Injection -) 25 mcg IVPUSH [id number] PRN PRN Reason: PAIN-PACU ORDER X 4 DOSES ONLY Insulin Aspart (Novolog Vial Sliding Scale -) 1 vial SQ [facility]; Protocol Last Admin: 09/09/18 11:05 Dose: 6 units Ondansetron HCl (Zofran Injection) 4 mg IVPUSH Q6H PRN PRN Reason: NAUSEA AND/OR VOMITING Polyethylene Glycol (Miralax (For Daily Use) -) 17 gm PO BID [facility] Last Admin: 09/09/18 09:13 Dose: Not Given Propranolol HCl (Inderal -) 10 mg PO BID [facility] Last Admin: 09/09/18 09:13 Dose: 10 mg Rosuvastatin Calcium (Crestor -) 5 mg PO HS [facility] Last Admin: 09/08/18 21:08 Dose: 5 mg - Objective Vital Signs: Vital Signs Temperature 99 F 09/09/18 08:49 Pulse Rate 105 H 09/09/18 08:49 Respiratory Rate 18 09/09/18 09:00 Blood Pressure 148/71 09/09/18 08:49 O2 Sat by Pulse Oximetry (%) 98 09/09/18 09:00 Constitutional: Yes: Calm Eyes: Yes: Conjunctiva Clear HENT: Yes: Atraumatic Neck: Yes: Supple Cardiovascular: Yes: S1, S2 Respiratory: Yes: CTA Bilaterally Gastrointestinal: Yes: Soft Genitourinary: Yes: WNL Musculoskeletal: Yes: WNL Edema: No Neurological: Yes: Oriented Psychiatric: Yes: Oriented Labs: CBC, BMP 09/09/18 06:15 09/09/18 06:15 INR, PTT INR 1.08 (0.83-1.09) 09/02/18 12:11 Problem List - Problems (1) Diarrhea Code(s): R19.7 - DIARRHEA, UNSPECIFIED (2) Hydronephrosis concurrent with and due to calculi of kidney and ureter Code(s): N13.2 - HYDRONEPHROSIS WITH RENAL AND URETERAL CALCULOUS OBSTRUCTION (3) Acute kidney injury Code(s): N17.9 - ACUTE KIDNEY FAILURE, UNSPECIFIED (4) Diabetes Code(s): E11.9 - TYPE 2 DIABETES MELLITUS WITHOUT COMPLICATIONS (5) HTN (hypertension) Code(s): I10 - ESSENTIAL (PRIMARY) HYPERTENSION Qualifiers: Hypertension type: essential hypertension Qualified Code(s): I10 - Essential (primary) hypertension (6) Hyperlipemia Code(s): E78.5 - HYPERLIPIDEMIA, UNSPECIFIED Qualifiers: Hyperlipidemia type: pure hypercholesterolemia Qualified Code(s): E78.00 - Pure hypercholesterolemia, unspecified; E78.0 - Pure hypercholesterolemia Assessment/Plan Current Medications Generic Name Dose Route Start Last Admin Trade Name Freq PRN Reason Stop Dose Admin Acetaminophen 650 mg 09/06/18 11:07 Tylenol - PO Q6H PRN FEVER Amoxicillin/Clavulanate Potassium 1 tab 09/09/18 17:30 Augmentin - 875mg Tablet PO BID@0800,1730 [facility] Docusate Sodium 100 mg 09/06/18 22:00 09/09/18 09:12 Colace - PO Not Given BID ALESSANDR[facility] Fentanyl 25 mcg 09/06/18 10:55 Sublimaze Injection - IVPUSH [id number] PRN PAIN-PACU ORDER X 4 DOSES ONLY Insulin Aspart 1 vial 09/06/18 16:30 09/09/18 11:05 Novolog Vial Sliding Scale - SQ 6 units ACHS ALESSANDRA Administration Protocol Ondansetron HCl 4 mg 09/06/18 10:55 Zofran Injection IVPUSH Q6H PRN NAUSEA AND/OR VOMITING Polyethylene Glycol 17 gm 09/06/18 22:00 09/09/18 09:13 Miralax (For Daily Use) - PO Not Given BID [facility] Propranolol HCl 10 mg 09/06/18 22:00 09/09/18 09:13 Inderal - PO 10 mg BID ALESSANDRA Administration Rosuvastatin Calcium 5 mg 09/06/18 22:00 09/08/18 21:08 Crestor - PO 5 mg HS ALESSANDRA Administration Microbiology 09/02/18 12:11 Urine - Urine Clean Catch Urine Culture - Final NO GROWTH OBTAINED 09/02/18 12:11 Blood - Peripheral Venous Blood Culture - Final NO GROWTH AFTER 5 DAYS INCUBATION 09/02/18 12:11 Blood - Peripheral Venous Blood Culture - Final NO GROWTH AFTER 5 DAYS INCUBATION 09/05/18 16:45 Blood - Peripheral Venous Blood Culture - Preliminary NO GROWTH OBTAINED AFTER 72 HOURS, INCUBATION TO CONTINUE FOR 2 DAYS. 09/05/18 16:00 Blood - Peripheral Venous Blood Culture - Preliminary NO GROWTH OBTAINED AFTER 72 HOURS, INCUBATION TO CONTINUE FOR 2 DAYS. Impression 1. MAJOR 2. nephrolithiasis 3. hydronephrosis 4. diarrhea 5. hyponatremia 6. HTN 7. DM 8. HLD 9. s/p left uretral stent Plan - renal function is improved - encourage hydration - repeat labs in am - abx per ID - cultures negative - monitor renal function - will follow Dr De La Fuente
[2018-09-09 16:02] VITALS: BMI 21.9
[2018-09-09] MEDS: AMOX TR/POT CLAV 875MG/125MG TABLETS (FP) PO SCH (17:25)
[2018-09-09] MEDS ORDERED: INSULIN (NOVOLOG) ASPART 100 UNITS/ML 10ML VIAL ONE (17:31)
--- NOTE | 2018-09-09 18:32 | PN ---
Progress Note, Physician - Current Medication List Current Medications: Active Medications Acetaminophen (Tylenol -) 650 mg PO Q6H PRN PRN Reason: FEVER Amoxicillin/Clavulanate Potassium (Augmentin - 875mg Tablet) 1 tab PO BID@0800, 1730 [facility] Last Admin: 09/09/18 17:25 Dose: 1 tab Docusate Sodium (Colace -) 100 mg PO BID [facility] Last Admin: 09/09/18 09:12 Dose: Not Given Fentanyl (Sublimaze Injection -) 25 mcg IVPUSH [id number] PRN PRN Reason: PAIN-PACU ORDER X 4 DOSES ONLY Insulin Aspart (Novolog Vial Sliding Scale -) [address] [facility]; Protocol Last Admin: 09/09/18 16:23 Dose: 4 units Ondansetron HCl (Zofran Injection) 4 mg IVPUSH Q6H PRN PRN Reason: NAUSEA AND/OR VOMITING Polyethylene Glycol (Miralax (For Daily Use) -) 17 gm PO BID [facility] Last Admin: 09/09/18 09:13 Dose: Not Given Propranolol HCl (Inderal -) 10 mg PO BID [facility] Last Admin: 09/09/18 09:13 Dose: 10 mg Rosuvastatin Calcium (Crestor -) 5 mg PO HS [facility] Last Admin: 09/08/18 21:08 Dose: 5 mg - Objective Vital Signs: Vital Signs Temperature 98.1 F 09/09/18 17:30 Pulse Rate 74 09/09/18 17:30 Respiratory Rate 18 09/09/18 17:30 Blood Pressure 150/56 L 09/09/18 17:30 O2 Sat by Pulse Oximetry (%) 98 09/09/18 09:00 Constitutional: Yes: No Distress HENT: Yes: Atraumatic Neck: Yes: Supple Cardiovascular: Yes: Regular Rate and Rhythm Respiratory: Yes: CTA Bilaterally Gastrointestinal: Yes: Normal Bowel Sounds Extremities: Yes: WNL Edema: No Neurological: Yes: Alert, Oriented Labs: CBC, BMP 09/09/18 06:15 09/09/18 06:15 INR, PTT INR 1.08 (0.83-1.09) 09/02/18 12:11 Problem List - Problems (1) Diabetes Assessment/Plan: elevated cr and low gfr have to hold metformin check bgms.. Code(s): E11.9 - TYPE 2 DIABETES MELLITUS WITHOUT COMPLICATIONS (2) Fever Assessment/Plan: on abx cxs noted Code(s): R50.9 - FEVER, UNSPECIFIED Qualifiers: Fever type: other (3) HTN (hypertension) Code(s): I10 - ESSENTIAL (PRIMARY) HYPERTENSION Qualifiers: Hypertension type: essential hypertension Qualified Code(s): I10 - Essential (primary) hypertension (4) Hyperlipemia Assessment/Plan: on meds Code(s): E78.5 - HYPERLIPIDEMIA, UNSPECIFIED Qualifiers: Hyperlipidemia type: pure hypercholesterolemia Qualified Code(s): E78.00 - Pure hypercholesterolemia, unspecified; E78.0 - Pure hypercholesterolemia (5) Constipation Assessment/Plan: appetite is good had BM Code(s): K59.00 - CONSTIPATION, UNSPECIFIED (6) Hydronephrosis concurrent with and due to calculi of kidney and ureter Code(s): N13.2 - HYDRONEPHROSIS WITH RENAL AND URETERAL CALCULOUS OBSTRUCTION
[2018-09-09] MEDS: ROSUVASTATIN CA 5 MG TABLET (FP) PO SCH (21:32)
[2018-09-10] MEDS: INSULIN SLIDING SCALE (NOVOLOG) 1 VIAL SQ SCH ×2 (06:40→11:01)
[2018-09-10 08:36] VITALS: BP 141/75; PULSE 111; TEMP 98.8
[2018-09-10] MEDS: AMOX TR/POT CLAV 875MG/125MG TABLETS (FP) PO SCH (08:36)
[2018-09-10 08:58] LABS: ANION GAP 6 MMOL/L (8-16); BLOOD UREA NITROGEN 18 mg/dL (7-18); CALCIUM 8.3 mg/dL (8.5-10.1); CHLORIDE 101 mmol/L (98-107); CO2 29 mmol/L (21-32); CREATININE 1.1 mg/dL (0.55-1.3); GLUCOSE,RANDOM 150 mg/dL (74-106); POTASSIUM 4.5 mmol/L (3.5-5.1); SODIUM 137 mmol/L (136-145)
--- NOTE | 2018-09-10 11:53 | PN ---
Progress Note, Physician History of Present Illness: patient stable no new issues - Current Medication List Current Medications: Active Medications Acetaminophen (Tylenol -) 650 mg PO Q6H PRN PRN Reason: FEVER Amoxicillin/Clavulanate Potassium (Augmentin - 875mg Tablet) 1 tab PO BID@0800, 1730 [facility] Last Admin: 09/10/18 08:36 Dose: 1 tab Fentanyl (Sublimaze Injection -) 25 mcg IVPUSH [id number] PRN PRN Reason: PAIN-PACU ORDER X 4 DOSES ONLY Insulin Aspart (Novolog Vial Sliding Scale -) 1 vial SQ [facility]; Protocol Last Admin: 09/10/18 11:01 Dose: 4 units Ondansetron HCl (Zofran Injection) 4 mg IVPUSH Q6H PRN PRN Reason: NAUSEA AND/OR VOMITING Propranolol HCl (Inderal -) 10 mg PO BID [facility] Last Admin: 09/10/18 09:36 Dose: 10 mg Rosuvastatin Calcium (Crestor -) 5 mg PO HS [facility] Last Admin: 09/09/18 21:32 Dose: 5 mg - Objective Vital Signs: Vital Signs Temperature 98.8 F 09/10/18 08:35 Pulse Rate 111 H 09/10/18 08:35 Respiratory Rate 18 09/10/18 09:00 Blood Pressure 141/75 09/10/18 08:35 O2 Sat by Pulse Oximetry (%) 96 09/10/18 09:00 Constitutional: Yes: No Distress, Calm Cardiovascular: Yes: Regular Rate and Rhythm Respiratory: Yes: Regular, CTA Bilaterally Gastrointestinal: Yes: Normal Bowel Sounds, Soft Musculoskeletal: Yes: WNL Extremities: Yes: WNL Neurological: Yes: Alert, Oriented Psychiatric: Yes: Alert, Oriented Labs: CBC, BMP 09/09/18 06:15 09/10/18 07:50 INR, PTT INR 1.08 (0.83-1.09) 09/02/18 12:11 Assessment/Plan Problem List - Problems (1) Diabetes Code(s): E11.9 - TYPE 2 DIABETES MELLITUS WITHOUT COMPLICATIONS (2) Fever Code(s): R50.9 - FEVER, UNSPECIFIED Qualifiers: Fever type: other (3) HTN (hypertension) Code(s): I10 - ESSENTIAL (PRIMARY) HYPERTENSION (4) Hyperlipemia Code(s): E78.5 - HYPERLIPIDEMIA, UNSPECIFIED 5 renal insufficiency plan will switch to oral abx rest continue current mgmt patient doing well cr normalized wbc normalized
--- NOTE | 2018-09-10 15:44 | DS ---
Physical Examination Vital Signs: Vital Signs Temperature 98.8 F 09/10/18 08:35 Pulse Rate 111 H 09/10/18 08:35 Respiratory Rate 18 09/10/18 09:00 Blood Pressure 141/75 09/10/18 08:35 O2 Sat by Pulse Oximetry (%) 96 09/10/18 09:00 Constitutional: Yes: No Distress HENT: Yes: Atraumatic Neck: Yes: Supple Cardiovascular: Yes: Regular Rate and Rhythm Respiratory: Yes: CTA Bilaterally Gastrointestinal: Yes: Normal Bowel Sounds Extremities: Yes: WNL Edema: No Peripheral Pulses WNL: Yes Neurological: Yes: Alert, Oriented Labs: CBC, BMP 09/09/18 06:15 09/10/18 07:50 Discharge Summary Reason For Visit: ACUTE KIDNEY INJURY, HYPONATREMIA Condition: Fair - Instructions Referrals: Edwin Chandler MD [Staff Physician] - Peter Beard MD [Staff Physician] - Chan Lainez MD [Primary Care Provider] - Disposition: HOME - Home Medications Comprehensive Discharge Medication List: Ambulatory Orders Propranolol HCl 10 mg PO BID 09/06/15 Rosuvastatin Calcium [Crestor] 5 mg PO DAILY 09/06/15 Lutein 20 mg PO DAILY PRN 02/11/16 Metformin HCl [Glucophage] 500 mg PO BID 08/23/18 Amox-Tr/K Cl [Augmentin 875-125mg Tablet -] 1 tab PO BID@0800,1730 #10 tablet [place] home
== END 2018-09-10 12:36 | disposition home or self-care (01) | DRG 660 ==
LOC: JER 10:48 → JERBED 14:09 → J7W 09-03 07:28
PROVIDERS: ADMIT Internal Medicine; ATTEND Internal Medicine
PROC: BT1BZZZ Fluoroscopy of Bladder and Urethra (ICD-10-PCS; 2018-09-02)
PROC: 0T778DZ Dilation of Left Ureter with Intraluminal Device, Via Natural or Artificial Opening Endoscopic (ICD-10-PCS; principal; 2018-09-06 10:30)
DX: N17.9 Acute kidney failure, unspecified (principal); E87.1 Hypo-osmolality and hyponatremia; N13.2 Hydronephrosis with renal and ureteral calculous obstruction; R19.7 Diarrhea, unspecified; I12.9 Hypertensive chronic kidney disease with stage 1 through stage 4 chronic kidney disease, or unspecified chronic kidney disease; E11.22 Type 2 diabetes mellitus with diabetic chronic kidney disease; N18.9 Chronic kidney disease, unspecified; Z90.710 Acquired absence of both cervix and uterus; Z79.84 Long term (current) use of oral hypoglycemic drugs; R00.2 Palpitations; E78.5 Hyperlipidemia, unspecified; K59.00 Constipation, unspecified
CPT/HCPCS: 36415; 71045-TC-FY; 74176-TC; 74190-TC-FY; 76000-TC-FY; 76775-TC; 78707-TC; 80048; 80053; 81003; 82436; 82570; 82962; 83605; 84133; 84300; 84484; 85025; 85027; 85610; 85730; 87040; 87086; 93005; 93010; 93306-TC; 94760; 99285-25; A9562; J7030

== ENCOUNTER 2018-11-01 12:34 | Day surgery (SDC) | payer BC ==
[2018-10-30 14:45] VITALS: BMI 22.3
--- NOTE | 2018-11-01 13:47 | HP ---
History & Physical Update - History History: No Change - Physical Physical: No Change - Assessment Assessment: No Change - Plan Plan: No Change
[2018-11-01] MEDS ORDERED: ACETAMINOPHEN 1000 MG/100 ML VIAL (NON FORMULARY) IVPB ONE (13:48)
[2018-11-01] MEDS ORDERED: PROPOFOL 20 ML ONE (13:56)
[2018-11-01] MEDS ORDERED: SUCCINYLCHOLINE CHLORIDE 200 MG/10 ML VIAL ONE (13:57)
[2018-11-01] MEDS ORDERED: ceFAZolin SODIUM 1 GM VIAL IVPB ONE (13:59)
[2018-11-01] MEDS ORDERED: DEXTROSE 5%-0.45% SALINE 1,000 ML IV SCH (14:00)
[2018-11-01] MEDS ORDERED: IBUPROFEN 800 MG/8 ML IJ IVPB SCH (14:00)
[2018-11-01] MEDS ORDERED: ONDANSETRON 4 MG/2 ML VIAL IVPUSH PRN (14:48)
[2018-11-01] MEDS ORDERED: ACETAMINOPHEN INJECTION 100 ML IVPB ONE (14:49)
[2018-11-01] MEDS ORDERED: IBUPROFEN 800 MG/8 ML IJ IVPB ONE (14:49)
[2018-11-01] MEDS ORDERED: LACTATED RINGERS SOLUTION 1,000 ML IV SCH (15:00)
[2018-11-01 16:07] VITALS: TEMP 97.7
[2018-11-01 17:52] VITALS: BP 145/70; PULSE 77
--- NOTE | 2018-11-01 21:49 | OP ---
DATE OF OPERATION: 11/01/2018 PREOPERATIVE DIAGNOSIS: Left ureteral calculus. POSTOPERATIVE DIAGNOSIS: Left ureteral calculus. PROCEDURE: Cystoscopy, left ureteroscopic laser lithotripsy, and ureteral stent replacement. ANESTHESIA: General. STENTS: A 6 x 22 double-J ureteral stent. PREOPERATIVE INDICATIONS: The patient is a 78-year-old female with history of left renal calculus. She underwent an ESWL. She had a retained fragment. Subsequently, a stent was placed. She comes to the OR today for removal of the remaining fragments. OPERATION: The patient was brought to the OR, placed on the table in the supine position, given general anesthesia and IV antibiotics, and placed in the modified lithotomy position. The groin was prepped and draped sterilely. Cystoscopy was performed. The distal urethra appeared to be normal. The bladder itself was normal except for a stent emerging from the left UO. The stent was removed. A wire was placed up in the left kidney under fluoroscopic guidance. A semi-rigid ureteroscope was passed into the left kidney. Along the course of the ureter in the mid ureter, the fragments were seen. These stones were broken up with the holmium laser fiber into small pieces of sand. These were irrigated out. No other stones were seen along the course of the ureter. A 6 x 22 double-J ureteral stent was left over the remaining wire. Bladder was emptied. The patient was woken up. Cori [id number]
--- NOTE | 2018-11-06 08:55 | PATH ---
Surgical Pathology Report Patient Name: JARVIS ADAIR Med. Rec. #: [id number] /Age/Gender: 1940 (Age: 78) / F Account: [id number] Location: [facility] Taken: 11/01/2018 Received: 11/04/2018 Reported: 11/06/2018 Physicians: Chan Lainez M.D. Specimen(s) Received OLD URETERAL STENT Clinical History Left renal stone Final Diagnosis OLD URETERAL STENT, REPLACEMENT: URETERAL STENT. MACROSCOPIC DIAGNOSIS. Electronically Signed Leatha Rosario M.D. Gross Description Received fresh labeled "old ureteral stent," is a 34 cm in length blue-green, coiled portion of tubing, consistent with a ureteral stent. No soft tissue is present. No sections are submitted, gross only. 11/04/2018 saudi11/04/2018
== END 2018-11-01 16:35 | disposition home or self-care (01) ==
LOC: JASU-SURG 12:34
PROVIDERS: ATTEND Urology
PROC: 0TF48ZZ Fragmentation in Left Kidney Pelvis, Via Natural or Artificial Opening Endoscopic (ICD-10-PCS; principal; 2018-11-01 14:00)
PROC: 0T778DZ Dilation of Left Ureter with Intraluminal Device, Via Natural or Artificial Opening Endoscopic (ICD-10-PCS; 2018-11-01 14:00)
DX: N20.1 Calculus of ureter (principal)
CPT/HCPCS: 76000-TC-FY; 82962; 88300-TC; 94760; J0131

== ENCOUNTER 2022-03-14 17:39 | Inpatient (IN) | payer OTHER ==
[~2022-03-14 17:39] MED LIST: ACETAMINOPHEN 1000 MG/100 ML BAG IVPB ONE; ACETAMINOPHEN INJECTION 100 ML IVPB ONE; DEXTROSE 5%-0.45% SALINE 1,000 ML IV SCH; GENTAMICIN SO4 80 MG/2 ML VIAL IVPB ONE; GENTAMICIN SO4 80 MG/2 ML VIAL ONE; IBUPROFEN 800 MG/8 ML IJ IVPB SCH; IOHEXOL 300 MG/ML INFUS..BTL IV ONE; LIDOCAINE HCL/PF 2% SDV 5ML VIAL ONE; PROPOFOL 20 ML ONE
[2022-03-14] MEDS ORDERED: KETOROLAC TROMETHAMINE 15 MG/ML VIAL IVPUSH ONE ×2 (17:59→18:20)
[2022-03-14] MEDS ORDERED: KETOROLAC TROMETHAMINE 30 MG/1 ML VIAL ONE (18:16)
[2022-03-14 21:16] LABS: BLOOD UREA NITROGEN 49.1 mg/dL (7-18); CALCIUM 7.8 mg/dL (8.5-10.1)
[2022-03-14] MEDS: ACETAMINOPHEN 1000 MG/100 ML BAG IVPB PRN (21:47)
[2022-03-14] MEDS: propRANOLol HCL 10 MG TABLET PO SCH (21:47)
[2022-03-15 09:14] LABS: HEMATOCRIT 29.2 % (32.4-45.2); HEMOGLOBIN 9.8 GM/dL (10.7-15.3); MCH 30.8 pg (25.7-33.7); MCHC 33.5 g/dl (32.0-36.0); MEAN CELL VOLUME 91.9 fl (80-96); MEAN PLT VOLUME 7.9 fl (7.5-11.1); PLATELET COUNT 101 10^3/uL (134-434); RBC 3.18 M/mm3 (3.60-5.2); RDW 15.1 % (11.6-15.6); WHITE BLOOD COUNT 13.4 K/mm3 (4.0-10.0)
[2022-03-15 09:34] LABS: ALBUMIN 3.4 g/dl (3.4-5.0); CALCIUM 7.9 mg/dL (8.5-10.1)
[2022-03-15 09:35] LABS: BLOOD UREA NITROGEN 54.4 mg/dL (7-18)
[2022-03-15 09:37] LABS: CREATININE 3.1 mg/dL (0.55-1.3)
[2022-03-15 09:39] LABS: BILIRUBIN,TOTAL 0.8 mg/dL (0.2-1); TOT PROT 6.9 g/dl (6.4-8.2)
[2022-03-15 09:46] LABS: ANISOCYTOSIS 0; HELMET CELLS 0; HOWELL-JOLLY BODIES 0; MACROCYTOSIS 0; OVALOCYTE 0; ROULEAU 0; SICKELED CELLS 0; TARGET CELLS 0; TEAR DROP CELLS 0; TOXIC GRANULATION 0
[2022-03-15 09:50] LABS: MAGNESIUM 1.7 mg/dL (1.8-2.4)
[2022-03-15] MEDS ORDERED: INSULIN (LEVEMIR) 100 UNITS/ML UNITS SQ SCH ×2 (10:00→22:00)
[2022-03-15] MEDS ORDERED: ROSUVASTATIN CA 5 MG TABLET PO SCH (10:00)
[2022-03-15] MEDS ORDERED: CEFTRIAXONE 1 GM in DEXTROSE 5%-WATER - 50 ML IVPB SCH (10:00)
[2022-03-15] MEDS ORDERED: MAGNESIUM 2GM/50ML STERILE WATER IVPB IVPB ONE (10:03)
[2022-03-15] MEDS ORDERED: SODIUM CHLORIDE 1,000 ML IV SCH ×3 (10:15→15:27)
[2022-03-15] MEDS ORDERED: DEXTROSE 5%-WATER - 50 ML IVPB ONE ×4 (10:30→21:34)
[2022-03-15] MEDS ORDERED: cefTRIAXone SODIUM 1 GM VIAL ONE (10:30)
[2022-03-15] MEDS: ACETAMINOPHEN 1000 MG/100 ML BAG IVPB PRN (10:43)
[2022-03-15] MEDS: propRANOLol HCL 10 MG TABLET PO SCH (10:44)
[2022-03-15] MEDS ORDERED: INSULIN SLIDING SCALE (NOVOLOG) 1 VIAL SQ SCH (11:00)
[2022-03-15] MEDS ORDERED: SODIUM CHLORIDE 0.9% 1000 ML INFUS.BAG IV ONE (12:09)
[2022-03-15] MEDS ORDERED: PIPERACILLIN/TAZOB 3.375 GM 3.375 GM in DEXTROSE 5%-WATER - 50 ML IVPB ONE ×2 (12:24→15:27)
[2022-03-15] MEDS ORDERED: SODIUM CHLORIDE 1,000 ML IV STA ×2 (12:53→15:27)
[2022-03-15 13:15] LABS: URINE APPEARANCE TURBID; URINE BILIRUBIN NEGATIVE (NEGATIVE); URINE COLOR RED; URINE GLUCOSE (UA) NEGATIVE (NEGATIVE)
[2022-03-15 13:16] LABS: URINE UROBILINOGEN 0.2 mg/dL (0.2-1.0)
[2022-03-15 13:18] LABS: URINE PROTEIN 4+ (NEGATIVE)
[2022-03-15 13:51] LABS: URINE BACTERIA MANY /uL (0-1359); URINE RBC >100 /uL (0-23.9); URINE WBC >100 /uL (0-25.8)
[2022-03-15] MEDS: PHENYLEPHRINE NS PREMIX 50,000 MCG/500 ML BAG CVP SCH ×2 (15:00→20:12)
[2022-03-15] MEDS ORDERED: SODIUM CHLORIDE FOR INHALATION 3 ML VIAL.NEB IH ONE (15:02)
[2022-03-15] MEDS ORDERED: VANCOMYCIN 1 GM/200 ML PREMIX BAG IVPB ONE (15:04)
[2022-03-15] MEDS ORDERED: KETOROLAC TROMETHAMINE 15 MG/ML VIAL IVPUSH ONE (15:27)
[2022-03-15] MEDS ORDERED: ACETAMINOPHEN 1000 MG/100 ML BAG IVPB PRN (15:27)
[2022-03-15 15:45] LABS: HEMATOCRIT 27.1 % (32.4-45.2); HEMOGLOBIN 8.8 GM/dL (10.7-15.3); MCH 30.1 pg (25.7-33.7); MCHC 32.3 g/dl (32.0-36.0); MEAN CELL VOLUME 93.1 fl (80-96); MEAN PLT VOLUME 8.5 fl (7.5-11.1); PLATELET COUNT 84 10^3/uL (134-434); RBC 2.92 M/mm3 (3.60-5.2); RDW 14.9 % (11.6-15.6); WHITE BLOOD COUNT 16.9 K/mm3 (4.0-10.0)
[2022-03-15] MEDS ORDERED: PIPERACILLIN/TAZOBACTAM 3.375 GM VIAL IVPB ONE (15:52)
[2022-03-15 16:05] LABS: CHLORIDE 100 mmol/L (98-107); SODIUM 132 mmol/L (136-145)
[2022-03-15 16:07] LABS: ALBUMIN 2.8 g/dl (3.4-5.0); ANION GAP 12 MMOL/L (8-16); ANISOCYTOSIS 0; BLOOD UREA NITROGEN 53.8 mg/dL (7-18); CO2 20 mmol/L (21-32); GLUCOSE,RANDOM 93 mg/dL (74-106); MACROCYTOSIS 0
[2022-03-15 16:10] LABS: CREATININE 2.8 mg/dL (0.55-1.3); SGOT/AST 38 U/L (15-37); SGPT/ALT 30 U/L (13-61)
[2022-03-15 16:12] LABS: BILIRUBIN,TOTAL 0.6 mg/dL (0.2-1); TOT PROT 5.9 g/dl (6.4-8.2)
[2022-03-15 16:13] LABS: ALK PHOS 74 U/L (45-117)
[2022-03-15 16:26] LABS: CALCIUM 6.8 mg/dL (8.5-10.1); LACTIC ACID 2.2 mmol/L (0.4-2.0)
[2022-03-15] MEDS ORDERED: PIPERACILLIN/TAZOB 2.25 GM 2.25 GM in DEXTROSE 5%-WATER - 50 ML IVPB ONE (16:33)
[2022-03-15] MEDS ORDERED: CALCIUM GLUCONATE 10% - 1,000 MG/10 ML VIAL IVPB ONE (16:37)
[2022-03-15] MEDS: INSULIN SLIDING SCALE (NOVOLOG) 1 VIAL SQ SCH (16:37)
[2022-03-15] MEDS ORDERED: PIPERACILLIN/TAZOBACTAM 2.25 GM VIAL IVPB ONE ×2 (16:46→21:34)
[2022-03-15] MEDS ORDERED: VASOPRESSIN 40 UNITS/100 ML BAG IV SCH (19:15)
[2022-03-15] MEDS ORDERED: ACETAMINOPHEN 1000 MG/100 ML BAG IVPB ONE (20:45)
[2022-03-15] MEDS: PIPERACILLIN/TAZOB 2.25 GM 2.25 GM in DEXTROSE 5%-WATER - 50 ML IVPB SCH (21:43)
[2022-03-15] MEDS: MUPIROCIN 2% TOPICAL OINTMENT FOR DECOLONIZATION NS SCH (21:44)
[2022-03-15] MEDS: CHLORHEXIDINE GLUCONATE 4% CLEANSER FOR DECOLONIZATION TP SCH (21:49)
[2022-03-15] MEDS: HEPARIN NA (PORCINE) 5,000 UNITS/ML 1ML VIAL SQ SCH (21:54)
[2022-03-15] MEDS: INSULIN (LEVEMIR) 100 UNITS/ML UNITS SQ SCH (21:54)
[2022-03-15] MEDS ORDERED: LORazepam 0.5 MG TABLET PO ONE (22:42)
[2022-03-16] MEDS ORDERED: PIPERACILLIN/TAZOBACTAM 2.25 GM VIAL IVPB ONE ×5 (01:58→21:14)
[2022-03-16] MEDS ORDERED: DEXTROSE 5%-WATER - 50 ML IVPB ONE ×5 (01:58→21:14)
[2022-03-16] MEDS ORDERED: QUEtiapine FUMARATE 25 MG TABLET PO ONE (02:00)
[2022-03-16] MEDS: PIPERACILLIN/TAZOB 2.25 GM 2.25 GM in DEXTROSE 5%-WATER - 50 ML IVPB SCH ×4 (02:03→21:37)
[2022-03-16] MEDS ORDERED: MELATONIN 5 MG TABLETS PO ONE (02:47)
[2022-03-16] MEDS ORDERED: HALOPERIDOL LACTATE 5 MG/ML IM ONE (02:48)
[2022-03-16 06:26] LABS: HEMOGLOBIN 8.6 GM/dL (10.7-15.3); MCH 30.2 pg (25.7-33.7); MCHC 31.8 g/dl (32.0-36.0); PLATELET COUNT 79 10^3/uL (134-434); RBC 2.85 M/mm3 (3.60-5.2); RDW 15.3 % (11.6-15.6); WHITE BLOOD COUNT 19.7 K/mm3 (4.0-10.0)
[2022-03-16] MEDS: HEPARIN NA (PORCINE) 5,000 UNITS/ML 1ML VIAL SQ SCH ×3 (06:29→21:37)
[2022-03-16] MEDS: INSULIN SLIDING SCALE (NOVOLOG) 1 VIAL SQ SCH ×3 (06:29→16:54)
[2022-03-16 06:42] LABS: CHLORIDE 103 mmol/L (98-107); SODIUM 133 mmol/L (136-145)
[2022-03-16 06:45] LABS: ALBUMIN 2.8 g/dl (3.4-5.0); ANION GAP 16 MMOL/L (8-16); BLOOD UREA NITROGEN 64.6 mg/dL (7-18); CO2 13 mmol/L (21-32); GLUCOSE,RANDOM 123 mg/dL (74-106)
[2022-03-16 06:48] LABS: CREATININE 3.5 mg/dL (0.55-1.3); SGOT/AST 681 U/L (15-37); SGPT/ALT 527 U/L (13-61)
[2022-03-16 06:49] LABS: TOT PROT 5.9 g/dl (6.4-8.2)
[2022-03-16 06:50] LABS: BILIRUBIN,TOTAL 0.8 mg/dL (0.2-1)
[2022-03-16 06:51] LABS: ALK PHOS 64 U/L (45-117)
[2022-03-16 07:22] LABS: CALCIUM 6.6 mg/dL (8.5-10.1)
[2022-03-16 08:34] LABS: LACTIC ACID 2.9 mmol/L (0.4-2.0)
[2022-03-16] MEDS ORDERED: CALCIUM GLUCONATE IN NACL 1 GM/50 ML BAG IVPB ONE ×2 (08:45→09:45)
[2022-03-16] MEDS ORDERED: ALBUTEROL SO4 2.5/IPRATROPIUM 0.5 INH SOL 3 ML VIAL.NEB. NEB PRN (09:31)
[2022-03-16] MEDS ORDERED: FUROSEMIDE 40 MG/4 ML INJECTABLE VIAL IVPUSH ONE (09:45)
[2022-03-16] MEDS: MUPIROCIN 2% TOPICAL OINTMENT FOR DECOLONIZATION NS SCH ×2 (10:07→21:37)
[2022-03-16] MEDS: ROSUVASTATIN CA 5 MG TABLET PO SCH (11:19)
[2022-03-16 14:16] LABS: LACTIC ACID 2.3 mmol/L (0.4-2.0)
[2022-03-16] MEDS: CHLORHEXIDINE GLUCONATE 4% CLEANSER FOR DECOLONIZATION TP SCH (21:37)
[2022-03-16] MEDS: INSULIN (LEVEMIR) 100 UNITS/ML UNITS SQ SCH (21:56)
[2022-03-17] MEDS ORDERED: DEXTROSE 5%-WATER - 50 ML IVPB ONE ×4 (03:05→21:50)
[2022-03-17] MEDS ORDERED: PIPERACILLIN/TAZOBACTAM 2.25 GM VIAL IVPB ONE ×4 (03:05→21:50)
[2022-03-17] MEDS: PIPERACILLIN/TAZOB 2.25 GM 2.25 GM in DEXTROSE 5%-WATER - 50 ML IVPB SCH ×4 (03:10→21:51)
[2022-03-17] MEDS: HEPARIN NA (PORCINE) 5,000 UNITS/ML 1ML VIAL SQ SCH ×3 (06:21→21:52)
[2022-03-17] MEDS: INSULIN SLIDING SCALE (NOVOLOG) 1 VIAL SQ SCH ×3 (06:21→16:30)
[2022-03-17 06:30] LABS: HEMATOCRIT 26.3 % (32.4-45.2); HEMOGLOBIN 8.6 GM/dL (10.7-15.3); MCH 30.6 pg (25.7-33.7); MCHC 32.6 g/dl (32.0-36.0); MEAN CELL VOLUME 93.8 fl (80-96); MEAN PLT VOLUME 8.8 fl (7.5-11.1); PLATELET COUNT 69 10^3/uL (134-434); RBC 2.81 M/mm3 (3.60-5.2); RDW 15.2 % (11.6-15.6); WHITE BLOOD COUNT 19.2 K/mm3 (4.0-10.0)
[2022-03-17 06:54] LABS: ALBUMIN 2.7 g/dl (3.4-5.0); BLOOD UREA NITROGEN 85.5 mg/dL (7-18); CALCIUM 7.2 mg/dL (8.5-10.1)
[2022-03-17 06:59] LABS: BILIRUBIN,TOTAL 1.1 mg/dL (0.2-1)
[2022-03-17] MEDS ORDERED: ALBUTEROL SO4 0.083% IH SOL 2.5 MG/3 ML VIAL.NEB. NEB PRN (07:47)
[2022-03-17] MEDS: PHENYLEPHRINE NS PREMIX 50,000 MCG/500 ML BAG CVP SCH (09:17)
[2022-03-17] MEDS: MUPIROCIN 2% TOPICAL OINTMENT FOR DECOLONIZATION NS SCH ×2 (09:43→22:30)
[2022-03-17] MEDS: ROSUVASTATIN CA 5 MG TABLET PO SCH (09:44)
[2022-03-17] MEDS: propRANOLol HCL 10 MG TABLET PO SCH (09:59)
[2022-03-17] MEDS: ALBUTEROL SO4 0.083% IH SOL 2.5 MG/3 ML VIAL.NEB. NEB PRN ×3 (11:31→20:27)
[2022-03-17] MEDS ORDERED: FUROSEMIDE 40 MG/4 ML INJECTABLE VIAL IVPUSH ONE (11:39)
[2022-03-17] MEDS: SODIUM BICARBONATE 8.4% 50 MEQ/50 ML DISP.SYRIN IVPUSH SCH ×2 (13:50→17:35)
[2022-03-17] MEDS ORDERED: ACETAMINOPHEN 1000 MG/100 ML BAG IVPB ONE (19:10)
[2022-03-17 20:39] LABS: HEMATOCRIT 23.1 % (32.4-45.2); HEMOGLOBIN 7.7 GM/dL (10.7-15.3); MCH 30.1 pg (25.7-33.7); MCHC 33.2 g/dl (32.0-36.0); MEAN CELL VOLUME 90.9 fl (80-96); PLATELET COUNT 54 10^3/uL (134-434); RBC 2.54 M/mm3 (3.60-5.2); RDW 15.6 % (11.6-15.6)
[2022-03-17 21:19] LABS: BLOOD UREA NITROGEN 95.4 mg/dL (7-18); CALCIUM 7.4 mg/dL (8.5-10.1)
[2022-03-17 21:46] LABS: EPI CELLS 9 /uL (0-25.1); HYALINE CASTS 1 /uL (0-3.1); PH,URINE 5.5 (5.0-8.0); URINE APPEARANCE CLEAR; URINE BACTERIA 4 /uL (0-1359); URINE BILIRUBIN NEGATIVE (NEGATIVE); URINE COLOR YELLOW; URINE GLUCOSE (UA) NEGATIVE (NEGATIVE); URINE KETONE NEGATIVE (NEGATIVE); URINE LEUK ESTERASE 2+ (NEGATIVE); URINE NITRITE NEGATIVE (NEGATIVE); URINE PROTEIN 1+ (NEGATIVE); URINE RBC 741 /uL (0-23.9); URINE UROBILINOGEN 0.2 mg/dL (0.2-1.0); URINE WBC 53 /uL (0-25.8)
[2022-03-17] MEDS: CHLORHEXIDINE GLUCONATE 4% CLEANSER FOR DECOLONIZATION TP SCH (21:52)
[2022-03-17] MEDS: INSULIN (LEVEMIR) 100 UNITS/ML UNITS SQ SCH (21:53)
[2022-03-17 22:17] LABS: YEAST MODERATE (NEGATIVE)
[2022-03-18] MEDS ORDERED: PIPERACILLIN/TAZOBACTAM 2.25 GM VIAL IVPB ONE ×4 (01:54→21:44)
[2022-03-18] MEDS ORDERED: DEXTROSE 5%-WATER - 50 ML IVPB ONE ×4 (01:55→21:44)
[2022-03-18] MEDS: PIPERACILLIN/TAZOB 2.25 GM 2.25 GM in DEXTROSE 5%-WATER - 50 ML IVPB SCH ×4 (02:00→21:46)
[2022-03-18] MEDS: HEPARIN NA (PORCINE) 5,000 UNITS/ML 1ML VIAL SQ SCH ×3 (06:03→21:52)
[2022-03-18] MEDS: INSULIN SLIDING SCALE (NOVOLOG) 1 VIAL SQ SCH ×3 (06:04→17:43)
[2022-03-18 07:03] LABS: HEMATOCRIT 24.5 % (32.4-45.2); HEMOGLOBIN 8.2 GM/dL (10.7-15.3); MCH 30.2 pg (25.7-33.7); MCHC 33.3 g/dl (32.0-36.0); MEAN CELL VOLUME 90.8 fl (80-96); MEAN PLT VOLUME 8.9 fl (7.5-11.1); PLATELET COUNT 53 10^3/uL (134-434); RDW 15.5 % (11.6-15.6); WHITE BLOOD COUNT 14.4 K/mm3 (4.0-10.0)
[2022-03-18] MEDS: ALBUTEROL SO4 0.083% IH SOL 2.5 MG/3 ML VIAL.NEB. NEB PRN ×4 (07:20→20:07)
[2022-03-18 07:22] LABS: ALBUMIN 2.5 g/dl (3.4-5.0); BLOOD UREA NITROGEN 95.8 mg/dL (7-18); CALCIUM 7.8 mg/dL (8.5-10.1)
[2022-03-18 07:24] LABS: CREATININE 3.8 mg/dL (0.55-1.3)
[2022-03-18] MEDS: MUPIROCIN 2% TOPICAL OINTMENT FOR DECOLONIZATION NS SCH ×2 (09:26→21:50)
[2022-03-18] MEDS ORDERED: FUROSEMIDE 40 MG/4 ML INJECTABLE VIAL IVPUSH ONE (09:31)
[2022-03-18] MEDS ORDERED: diphenhydrAMINE HCL 25 MG CAPSULE (FP) PO ONE (19:58)
[2022-03-18] MEDS: ROSUVASTATIN CA 5 MG TABLET PO SCH (21:51)
[2022-03-18] MEDS: CHLORHEXIDINE GLUCONATE 4% CLEANSER FOR DECOLONIZATION TP SCH (21:52)
[2022-03-18] MEDS: INSULIN (LEVEMIR) 100 UNITS/ML UNITS SQ SCH (21:53)
[2022-03-19] MEDS ORDERED: PIPERACILLIN/TAZOBACTAM 2.25 GM VIAL IVPB ONE ×4 (02:48→21:01)
[2022-03-19] MEDS ORDERED: DEXTROSE 5%-WATER - 50 ML IVPB ONE ×4 (02:48→21:02)
[2022-03-19] MEDS: PIPERACILLIN/TAZOB 2.25 GM 2.25 GM in DEXTROSE 5%-WATER - 50 ML IVPB SCH ×4 (02:53→21:14)
[2022-03-19] MEDS: HEPARIN NA (PORCINE) 5,000 UNITS/ML 1ML VIAL SQ SCH (06:12)
[2022-03-19] MEDS: INSULIN SLIDING SCALE (NOVOLOG) 1 VIAL SQ SCH ×3 (06:13→16:57)
[2022-03-19 07:00] LABS: ALBUMIN 2.7 g/dl (3.4-5.0); CALCIUM 8.2 mg/dL (8.5-10.1); MAGNESIUM 1.9 mg/dL (1.8-2.4)
[2022-03-19 07:03] LABS: CREATININE 2.8 mg/dL (0.55-1.3); HEMATOCRIT 25.1 % (32.4-45.2); HEMOGLOBIN 8.5 GM/dL (10.7-15.3); MCH 30.7 pg (25.7-33.7); MEAN CELL VOLUME 90.4 fl (80-96); MEAN PLT VOLUME 9.2 fl (7.5-11.1); PLATELET COUNT 52 10^3/uL (134-434); RBC 2.78 M/mm3 (3.60-5.2); RDW 15.5 % (11.6-15.6); WHITE BLOOD COUNT 8.1 K/mm3 (4.0-10.0)
[2022-03-19 07:04] LABS: PHOSPHOROUS 3.6 mg/dL (2.5-4.9)
[2022-03-19 07:05] LABS: BILIRUBIN,TOTAL 0.7 mg/dL (0.2-1); TOT PROT 6.4 g/dl (6.4-8.2)
[2022-03-19] MEDS: ALBUTEROL SO4 0.083% IH SOL 2.5 MG/3 ML VIAL.NEB. NEB PRN ×3 (07:58→16:49)
[2022-03-19] MEDS: MUPIROCIN 2% TOPICAL OINTMENT FOR DECOLONIZATION NS SCH ×2 (14:46→21:15)
[2022-03-19] MEDS: INSULIN (LEVEMIR) 100 UNITS/ML UNITS SQ SCH (21:19)
[2022-03-19] MEDS: ROSUVASTATIN CA 5 MG TABLET PO SCH (22:04)
[2022-03-19] MEDS: CHLORHEXIDINE GLUCONATE 4% CLEANSER FOR DECOLONIZATION TP SCH (22:04)
[2022-03-20] MEDS ORDERED: diphenhydrAMINE HCL 25 MG CAPSULE (FP) PO ONE (00:15)
[2022-03-20] MEDS ORDERED: PIPERACILLIN/TAZOBACTAM 2.25 GM VIAL IVPB ONE ×3 (00:25→11:40)
[2022-03-20] MEDS ORDERED: DEXTROSE 5%-WATER - 50 ML IVPB ONE ×3 (00:26→11:40)
[2022-03-20] MEDS: PIPERACILLIN/TAZOB 2.25 GM 2.25 GM in DEXTROSE 5%-WATER - 50 ML IVPB SCH ×4 (03:20→21:40)
[2022-03-20] MEDS: INSULIN SLIDING SCALE (NOVOLOG) 1 VIAL SQ SCH ×3 (06:10→15:55)
[2022-03-20 07:08] LABS: HEMATOCRIT 25.6 % (32.4-45.2); HEMOGLOBIN 8.5 GM/dL (10.7-15.3); MCH 30.2 pg (25.7-33.7); MCHC 33.3 g/dl (32.0-36.0); MEAN CELL VOLUME 90.7 fl (80-96); MEAN PLT VOLUME 9.2 fl (7.5-11.1); PLATELET COUNT 77 10^3/uL (134-434); RBC 2.82 M/mm3 (3.60-5.2); RDW 15.2 % (11.6-15.6); WHITE BLOOD COUNT 7.8 K/mm3 (4.0-10.0)
[2022-03-20 07:29] LABS: ALBUMIN 2.9 g/dl (3.4-5.0); CALCIUM 8.3 mg/dL (8.5-10.1)
[2022-03-20 07:31] LABS: BLOOD UREA NITROGEN 82.8 mg/dL (7-18)
[2022-03-20 07:32] LABS: CREATININE 2.2 mg/dL (0.55-1.3)
[2022-03-20 07:35] LABS: BILIRUBIN,TOTAL 0.6 mg/dL (0.2-1); TOT PROT 6.7 g/dl (6.4-8.2)
[2022-03-20] MEDS: MUPIROCIN 2% TOPICAL OINTMENT FOR DECOLONIZATION NS SCH (10:55)
[2022-03-20 12:58] VITALS: BMI 26.2
[2022-03-20] MEDS ORDERED: ALBUTEROL SO4 0.083% IH SOL 2.5 MG/3 ML VIAL.NEB. NEB PRN (20:01)
[2022-03-20] MEDS: INSULIN (LEVEMIR) 100 UNITS/ML UNITS SQ SCH (21:30)
[2022-03-20] MEDS: ROSUVASTATIN CA 5 MG TABLET PO SCH (21:32)
[2022-03-20] MEDS ORDERED: MUPIROCIN 2% TOPICAL OINTMENT FOR DECOLONIZATION NS SCH (22:00)
[2022-03-20] MEDS ORDERED: CHLORHEXIDINE GLUCONATE 4% CLEANSER FOR DECOLONIZATION TP SCH (22:00)
[2022-03-21] MEDS ORDERED: DEXTROSE 5%-WATER - 50 ML IVPB ONE ×3 (02:16→11:02)
[2022-03-21] MEDS ORDERED: PIPERACILLIN/TAZOBACTAM 2.25 GM VIAL IVPB ONE ×2 (02:16→08:45)
[2022-03-21] MEDS: PIPERACILLIN/TAZOB 2.25 GM 2.25 GM in DEXTROSE 5%-WATER - 50 ML IVPB SCH ×2 (02:25→10:51)
[2022-03-21] MEDS: INSULIN SLIDING SCALE (NOVOLOG) 1 VIAL SQ SCH ×3 (06:13→17:16)
[2022-03-21 07:48] LABS: HEMATOCRIT 25.2 % (32.4-45.2); HEMOGLOBIN 8.4 GM/dL (10.7-15.3); MCH 30.4 pg (25.7-33.7); MCHC 33.2 g/dl (32.0-36.0); MEAN CELL VOLUME 91.6 fl (80-96); MEAN PLT VOLUME 9.8 fl (7.5-11.1); PLATELET COUNT 97 10^3/uL (134-434); RBC 2.75 M/mm3 (3.60-5.2); RDW 14.9 % (11.6-15.6); WHITE BLOOD COUNT 10.5 K/mm3 (4.0-10.0)
[2022-03-21 08:23] LABS: CALCIUM 8.2 mg/dL (8.5-10.1)
[2022-03-21 08:24] LABS: BLOOD UREA NITROGEN 66.8 mg/dL (7-18)
[2022-03-21 08:27] LABS: CREATININE 1.8 mg/dL (0.55-1.3)
[2022-03-21 08:28] LABS: TOT PROT 6.7 g/dl (6.4-8.2)
[2022-03-21] MEDS ORDERED: diphenhydrAMINE HCL 25 MG CAPSULE (FP) PO PRN (10:29)
[2022-03-21] MEDS ORDERED: AZTREONAM 1 GM in DEXTROSE 5%-WATER - 50 ML IVPB ONE (10:38)
[2022-03-21] MEDS ORDERED: ZINC OXIDE 20% TOPICAL OINTMENT 30 GM TUBE TP SCH (10:45)
[2022-03-21] MEDS ORDERED: AZTREONAM 1 GM VIAL (RESTRICTED TO ID) ONE (11:02)
[2022-03-21 11:08] LABS: ANTIGLOMERULAR BASEMENT MEN.AB 3 units (0-20)
[2022-03-21] MEDS: LACTOBACILLUS ACIDOPHILUS 1 TABLET PO SCH (11:25)
[2022-03-21] MEDS: PANTOPRAZOLE 40 MG TABLET PO SCH (11:25)
[2022-03-21] MEDS: BANATROL PLUS POWDER PACKET PO SCH ×2 (13:19→21:14)
[2022-03-21 15:08] LABS: ATYPICAL pANCA <1:20 titer (Neg:<1:20); C-ANCA <1:20 titer (Neg:<1:20)
[2022-03-21] MEDS: SODIUM CHLORIDE 1,000 ML IV SCH ×2 (16:38→18:18)
[2022-03-21 18:20] LABS: HEMOGLOBIN 8.1 GM/dL (10.7-15.3); MCH 29.6 pg (25.7-33.7); MCHC 32.5 g/dl (32.0-36.0); MEAN CELL VOLUME 91.3 fl (80-96); MEAN PLT VOLUME 9.5 fl (7.5-11.1); PLATELET COUNT 131 10^3/uL (134-434); RBC 2.74 M/mm3 (3.60-5.2); RDW 15.3 % (11.6-15.6); WHITE BLOOD COUNT 11.4 K/mm3 (4.0-10.0)
[2022-03-21] MEDS: ZINC OXIDE 20% TOPICAL OINTMENT 30 GM TUBE TP SCH (21:14)
[2022-03-21] MEDS: ROSUVASTATIN CA 5 MG TABLET PO SCH (21:14)
[2022-03-21] MEDS: INSULIN (LEVEMIR) 100 UNITS/ML UNITS SQ SCH (21:17)
[2022-03-22] MEDS: INSULIN SLIDING SCALE (NOVOLOG) 1 VIAL SQ SCH ×3 (06:25→16:52)
[2022-03-22] MEDS: BANATROL PLUS POWDER PACKET PO SCH ×3 (06:32→21:47)
[2022-03-22 08:25] LABS: HEMATOCRIT 21.3 % (32.4-45.2); HEMOGLOBIN 7.1 GM/dL (10.7-15.3); MCH 30.5 pg (25.7-33.7); MCHC 33.2 g/dl (32.0-36.0); MEAN PLT VOLUME 9.5 fl (7.5-11.1); PLATELET COUNT 118 10^3/uL (134-434); RBC 2.32 M/mm3 (3.60-5.2); RDW 15.1 % (11.6-15.6); WHITE BLOOD COUNT 10.1 K/mm3 (4.0-10.0)
[2022-03-22 08:53] LABS: ALBUMIN 2.6 g/dl (3.4-5.0); BLOOD UREA NITROGEN 53.8 mg/dL (7-18); CALCIUM 7.7 mg/dL (8.5-10.1); MAGNESIUM 1.7 mg/dL (1.8-2.4)
[2022-03-22 08:57] LABS: BILIRUBIN,TOTAL 0.5 mg/dL (0.2-1); TOT PROT 5.8 g/dl (6.4-8.2)
[2022-03-22 08:58] LABS: CREATININE 1.5 mg/dL (0.55-1.3); PHOSPHOROUS 2.9 mg/dL (2.5-4.9)
[2022-03-22] MEDS: LACTOBACILLUS ACIDOPHILUS 1 TABLET PO SCH (09:45)
[2022-03-22] MEDS: PANTOPRAZOLE 40 MG TABLET PO SCH (09:45)
[2022-03-22] MEDS: ZINC OXIDE 20% TOPICAL OINTMENT 30 GM TUBE TP SCH ×2 (09:45→21:48)
[2022-03-22] MEDS ORDERED: AZTREONAM 0.5 GM in DEXTROSE 5%-WATER - 50 ML IVPB ONE (10:00)
[2022-03-22] MEDS ORDERED: MAGNESIUM SULF 50% (8.12 MEQ/2 ML-1 GM VIAL) IVPB ONE (12:12)
[2022-03-22] MEDS: SODIUM CHLORIDE 1,000 ML IV SCH (16:52)
[2022-03-22] MEDS ORDERED: AZTREONAM 0.5 GM in DEXTROSE 5%-WATER - 50 ML IVPB SCH (18:00)
[2022-03-22] MEDS: ROSUVASTATIN CA 5 MG TABLET PO SCH (21:47)
[2022-03-22] MEDS: INSULIN (LEVEMIR) 100 UNITS/ML UNITS SQ SCH (21:52)
[2022-03-23] MEDS: INSULIN SLIDING SCALE (NOVOLOG) 1 VIAL SQ SCH ×3 (06:12→17:27)
[2022-03-23] MEDS: BANATROL PLUS POWDER PACKET PO SCH ×2 (06:56→13:04)
[2022-03-23 08:23] LABS: BASO % 0.2 % (0-2.0); EOS % 0.9 % (0-4.5); HEMATOCRIT 24.7 % (32.4-45.2); HEMOGLOBIN 8.1 GM/dL (10.7-15.3); LYMPH % 9.6 % (8-40); MCH 30.7 pg (25.7-33.7); MCHC 32.8 g/dl (32.0-36.0); MEAN CELL VOLUME 93.6 fl (80-96); MEAN PLT VOLUME 8.9 fl (7.5-11.1); MONO % 9.8 % (3.8-10.2); NEUT % 79.5 % (42.8-82.8); PLATELET COUNT 177 10^3/uL (134-434); RBC 2.64 M/mm3 (3.60-5.2); RDW 15.3 % (11.6-15.6); WHITE BLOOD COUNT 10.4 K/mm3 (4.0-10.0)
[2022-03-23 09:00] LABS: ALBUMIN 2.9 g/dl (3.4-5.0); BLOOD UREA NITROGEN 32.2 mg/dL (7-18); CALCIUM 8.3 mg/dL (8.5-10.1)
[2022-03-23 09:01] LABS: MAGNESIUM 2.2 mg/dL (1.8-2.4)
[2022-03-23 09:03] LABS: CREATININE 1.2 mg/dL (0.55-1.3); PHOSPHOROUS 2.6 mg/dL (2.5-4.9)
[2022-03-23 09:05] LABS: BILIRUBIN,TOTAL 0.6 mg/dL (0.2-1); TOT PROT 6.6 g/dl (6.4-8.2)
[2022-03-23] MEDS: PANTOPRAZOLE 40 MG TABLET PO SCH (09:21)
[2022-03-23] MEDS: LACTOBACILLUS ACIDOPHILUS 1 TABLET PO SCH (09:21)
[2022-03-23] MEDS: ZINC OXIDE 20% TOPICAL OINTMENT 30 GM TUBE TP SCH (13:04)
[2022-03-23] MEDS ORDERED: FUROSEMIDE 20 MG TABLET (FP) PO ONE (13:28)
[2022-03-23 15:34] VITALS: BP 148/58; PULSE 66; TEMP 98
== END 2022-03-23 18:29 | disposition home or self-care (01) | DRG 856 ==
LOC: SUATTDRO 17:39 → JASUSAT 17:39 → J8W 19:28 → J4W 03-15 13:35 → JASUSAT 03-15 13:35 → JICU 03-15 15:18 → J4W 03-20 18:57
PROVIDERS: ADMIT Internal Medicine; ATTEND Internal Medicine
PROC: 0T778DZ Dilation of Left Ureter with Intraluminal Device, Via Natural or Artificial Opening Endoscopic (ICD-10-PCS; principal; 2022-03-14 13:30)
PROC: 0TJB8ZZ Inspection of Bladder, Via Natural or Artificial Opening Endoscopic (ICD-10-PCS; 2022-03-14 13:30)
PROC: 0TC78ZZ Extirpation of Matter from Left Ureter, Via Natural or Artificial Opening Endoscopic (ICD-10-PCS; 2022-03-14 13:30)
DX: T81.44XA Sepsis following a procedure, initial encounter (principal); A41.89 Other specified sepsis; R65.21 Severe sepsis with septic shock; K72.01 Acute and subacute hepatic failure with coma; J18.9 Pneumonia, unspecified organism; N17.9 Acute kidney failure, unspecified; E87.2 Acidosis; N13.6 Pyonephrosis; R31.9 Hematuria, unspecified; E78.5 Hyperlipidemia, unspecified; Y84.8 Other medical procedures as the cause of abnormal reaction of the patient, or of later complication, without mention of misadventure at the time of the procedure; D69.6 Thrombocytopenia, unspecified; E11.22 Type 2 diabetes mellitus with diabetic chronic kidney disease; N18.9 Chronic kidney disease, unspecified; I12.9 Hypertensive chronic kidney disease with stage 1 through stage 4 chronic kidney disease, or unspecified chronic kidney disease; R00.2 Palpitations; F03.90 Unspecified dementia, unspecified severity, without behavioral disturbance, psychotic disturbance, mood disturbance, and anxiety; I27.20 Pulmonary hypertension, unspecified; E83.42 Hypomagnesemia; R00.0 Tachycardia, unspecified; L27.0 Generalized skin eruption due to drugs and medicaments taken internally; T36.0X5A Adverse effect of penicillins, initial encounter; R19.7 Diarrhea, unspecified; M16.10 Unilateral primary osteoarthritis, unspecified hip; Z85.118 Personal history of other malignant neoplasm of bronchus and lung
CPT/HCPCS: 36415; 71045-TC-FY; 74176-TC; 76000-TC-FY; 76705-TC; 80048; 80053; 81003; 82570; 82962; 83516; 83520; 83605; 83735; 84100; 84155; 84156; 84165; 85025; 85027; 86022; 86038; 86225; 86256; 86705; 86707; 86708; 86803; 87040; 87070; 87077; 87086; 87205; 87324; 87340; 87350; 87449; 87517; 93005; 93010; 93306-TC; 94010; 94640; 94760; 97116-GP; C9803-CS; J1644; J3490; U0003; U0005

== ENCOUNTER 2022-05-18 15:53 | Inpatient (IN) | payer OTHER ==
[2022-05-18 16:17] VITALS: BMI 24.4
[2022-05-18 19:07] LABS: BASO % 0.2 % (0-2.0); EOS % 0.1 % (0-4.5); HEMATOCRIT 27.3 % (32.4-45.2); LYMPH % 6.5 % (8-40); MCH 29.7 pg (25.7-33.7); MCHC 33.1 g/dl (32.0-36.0); MEAN CELL VOLUME 89.8 fl (80-96); MEAN PLT VOLUME 7.3 fl (7.5-11.1); NEUT % 83.2 % (42.8-82.8); PLATELET COUNT 245 10^3/uL (134-434); RBC 3.04 M/mm3 (3.60-5.2); RDW 15.3 % (11.6-15.6); WHITE BLOOD COUNT 16.4 K/mm3 (4.0-10.0)
[2022-05-18 20:36] LABS: CALCIUM 8.5 mg/dL (8.5-10.1)
[2022-05-18 20:37] LABS: ALBUMIN 3.1 g/dl (3.4-5.0); BLOOD UREA NITROGEN 37.3 mg/dL (7-18)
[2022-05-18 20:40] LABS: CREATININE 1.9 mg/dL (0.55-1.3)
[2022-05-18 20:42] LABS: BILIRUBIN,TOTAL 0.4 mg/dL (0.2-1); TOT PROT 7.7 g/dl (6.4-8.2)
[2022-05-18] MEDS ORDERED: SODIUM CHLORIDE 0.9% 500 ML INFUS.BAG IV ONE (20:51)
[2022-05-18] MEDS ORDERED: CEFTRIAXONE 1,000 MG in DEXTROSE 5%-WATER - 50 ML IVPB ONE (20:52)
[2022-05-18 21:24] LABS: EPI CELLS 4 /uL (0-25.1); HYALINE CASTS 1 /uL (0-3.1); PH,URINE 5.5 (5.0-8.0); URINE APPEARANCE TURBID; URINE BACTERIA 2405 /uL (0-1359); URINE BILIRUBIN NEGATIVE (NEGATIVE); URINE COLOR DK YELLOW; URINE GLUCOSE (UA) NEGATIVE (NEGATIVE); URINE KETONE NEGATIVE (NEGATIVE); URINE LEUK ESTERASE 3+ (NEGATIVE); URINE NITRITE NEGATIVE (NEGATIVE); URINE PROTEIN 2+ (NEGATIVE); URINE RBC 41 /uL (0-23.9); URINE UROBILINOGEN 0.2 mg/dL (0.2-1.0); URINE WBC 4078 /uL (0-25.8)
[2022-05-18] MEDS ORDERED: CEFTRIAXONE 1 GM in DEXTROSE 5%-WATER - 100 ML IVPB ONE (21:29)
[2022-05-18] MEDS ORDERED: TAMSULOSIN HCL 0.4 MG CAP PO ONE (21:30)
[2022-05-18 21:58] LABS: YEAST NEGATIVE (NEGATIVE)
[2022-05-19] MEDS ORDERED: TAMSULOSIN HCL 0.4 MG CAP ONE ×2 (00:48→07:51)
[2022-05-19] MEDS ORDERED: CEFTRIAXONE 1 GM/50 ML BAG ONE (00:48)
[2022-05-19] MEDS ORDERED: SODIUM CHLORIDE 0.9% 500 ML INFUS.BAG IV ONE (01:03)
[2022-05-19] MEDS ORDERED: PIPERACILLIN/TAZOB 2.25 GM 2.25 GM in DEXTROSE 5%-WATER - 50 ML IVPB SCH (01:06)
[2022-05-19] MEDS: PIPERACILLIN/TAZOB 2.25 GM 2.25 GM in DEXTROSE 5%-WATER - 50 ML IVPB SCH ×4 (01:55→15:49)
[2022-05-19] MEDS ORDERED: PIPERACILLIN/TAZOB 2.25 GM 2.25 GM/50 ML BAG IVPB ONE ×2 (04:48→07:52)
[2022-05-19] MEDS ORDERED: HEPARIN NA (PORCINE) 5,000 UNITS/ML 1ML VIAL ONE ×2 (07:23→13:28)
[2022-05-19] MEDS: HEPARIN NA (PORCINE) 5,000 UNITS/ML 1ML VIAL SQ SCH ×3 (07:30→21:55)
[2022-05-19] MEDS ORDERED: INSULIN SLIDING SCALE (NOVOLOG) 1 VIAL SQ ONE (07:52)
[2022-05-19 07:58] LABS: BASO % 0.1 % (0-2.0); EOS % 0.3 % (0-4.5); HEMOGLOBIN 8.9 GM/dL (10.7-15.3); LYMPH % 5.9 % (8-40); MCH 30.6 pg (25.7-33.7); MCHC 34.3 g/dl (32.0-36.0); MEAN CELL VOLUME 89.3 fl (80-96); MEAN PLT VOLUME 7.4 fl (7.5-11.1); MONO % 9.5 % (3.8-10.2); NEUT % 84.2 % (42.8-82.8); PLATELET COUNT 234 10^3/uL (134-434); RBC 2.91 M/mm3 (3.60-5.2); RDW 15.2 % (11.6-15.6); WHITE BLOOD COUNT 10.3 K/mm3 (4.0-10.0)
[2022-05-19] MEDS: INSULIN SLIDING SCALE (NOVOLOG) 1 VIAL SQ SCH ×4 (08:02→21:55)
[2022-05-19 08:13] LABS: CALCIUM 8.2 mg/dL (8.5-10.1)
[2022-05-19 08:14] LABS: ALBUMIN 2.7 g/dl (3.4-5.0); BLOOD UREA NITROGEN 32.7 mg/dL (7-18); MAGNESIUM 2.1 mg/dL (1.8-2.4)
[2022-05-19 08:17] LABS: CREATININE 1.6 mg/dL (0.55-1.3); PHOSPHOROUS 2.8 mg/dL (2.5-4.9)
[2022-05-19 08:18] LABS: BILIRUBIN,TOTAL 0.4 mg/dL (0.2-1); TOT PROT 7.2 g/dl (6.4-8.2)
[2022-05-19 08:21] LABS: INR 1.15 (0.83-1.09); PROTHROMBIN TIME (PATIENT) 13.3 SEC (9.7-13.0)
[2022-05-19] MEDS ORDERED: TAMSULOSIN HCL 0.4 MG CAP PO SCH (08:30)
[2022-05-19] MEDS ORDERED: SODIUM CHLORIDE 1,000 ML IV SCH ×2 (08:30)
[2022-05-19] MEDS ORDERED: propRANOLol HCL 10 MG TABLET PO SCH (11:30)
[2022-05-19] MEDS ORDERED: propRANOLol HCL 10 MG TABLET ONE (13:28)
[2022-05-19] MEDS ORDERED: PROPOFOL 20 ML ONE (14:12)
[2022-05-19] MEDS ORDERED: LIDOCAINE HCL 2% 100 MG/5 ML DISP.SYRIN ONE (14:12)
[2022-05-19] MEDS ORDERED: MIDAZOLAM HCL 2 MG/2 ML SINGLE DOSE VIAL ONE (14:40)
[2022-05-19] MEDS ORDERED: ONDANSETRON 4 MG/2 ML VIAL IVPUSH PRN (15:08)
[2022-05-19] MEDS ORDERED: PROMETHAZINE HCL 25 MG/1 ML VIAL IVPUSH PRN (15:08)
[2022-05-19] MEDS ORDERED: LACTATED RINGERS SOLUTION 1,000 ML IV SCH ×2 (15:15→16:17)
[2022-05-19] MEDS ORDERED: PIPERACILLIN/TAZOBACTAM 2.25 GM VIAL IVPB ONE ×2 (15:49→21:43)
[2022-05-19] MEDS ORDERED: DEXTROSE 5%-WATER - 50 ML IVPB ONE (21:43)
[2022-05-19] MEDS: ATORVASTATIN CA 20 MG TABLET (FP) PO SCH (21:54)
[2022-05-19] MEDS: INSULIN (LEVEMIR) 100 UNITS/ML UNITS SQ SCH (21:54)
[2022-05-19] MEDS ORDERED: ATORVASTATIN CA 20 MG TABLET (FP) PO SCH (22:00)
[2022-05-19] MEDS: propRANOLol HCL 10 MG TABLET PO SCH (22:16)
[2022-05-20] MEDS: PIPERACILLIN/TAZOB 2.25 GM 2.25 GM in DEXTROSE 5%-WATER - 50 ML IVPB SCH (02:46)
[2022-05-20] MEDS: HEPARIN NA (PORCINE) 5,000 UNITS/ML 1ML VIAL SQ SCH ×3 (06:23→22:01)
[2022-05-20] MEDS: INSULIN SLIDING SCALE (NOVOLOG) 1 VIAL SQ SCH ×4 (06:26→22:02)
[2022-05-20] MEDS: TAMSULOSIN HCL 0.4 MG CAP PO SCH (08:48)
[2022-05-20] MEDS: propRANOLol HCL 10 MG TABLET PO SCH ×2 (09:46→22:02)
[2022-05-20 11:34] LABS: CALCIUM 8.1 mg/dL (8.5-10.1)
[2022-05-20] MEDS ORDERED: INSULIN (NOVOLOG) ASPART 100 UNITS/ML 10ML VIAL ONE (11:34)
[2022-05-20 11:35] LABS: ALBUMIN 2.8 g/dl (3.4-5.0); BLOOD UREA NITROGEN 29.4 mg/dL (7-18)
[2022-05-20 11:37] LABS: CREATININE 1.6 mg/dL (0.55-1.3)
[2022-05-20 11:39] LABS: BILIRUBIN,TOTAL 0.7 mg/dL (0.2-1); TOT PROT 7.2 g/dl (6.4-8.2)
[2022-05-20] MEDS: SODIUM CHLORIDE 1,000 ML IV SCH (15:05)
[2022-05-20] MEDS: ATORVASTATIN CA 20 MG TABLET (FP) PO SCH (22:01)
[2022-05-20] MEDS: INSULIN (LEVEMIR) 100 UNITS/ML UNITS SQ SCH (22:02)
[2022-05-21] MEDS: SODIUM CHLORIDE 1,000 ML IV SCH (06:25)
[2022-05-21] MEDS: HEPARIN NA (PORCINE) 5,000 UNITS/ML 1ML VIAL SQ SCH ×3 (06:29→21:45)
[2022-05-21] MEDS: INSULIN SLIDING SCALE (NOVOLOG) 1 VIAL SQ SCH ×4 (06:32→21:49)
[2022-05-21] MEDS: TAMSULOSIN HCL 0.4 MG CAP PO SCH (08:39)
[2022-05-21] MEDS: propRANOLol HCL 10 MG TABLET PO SCH ×2 (10:05→21:46)
[2022-05-21] MEDS ORDERED: INSULIN (NOVOLOG) ASPART 100 UNITS/ML 10ML VIAL ONE (11:24)
[2022-05-21] MEDS ORDERED: PIPERACILLIN/TAZOBACTAM 2.25 GM VIAL IVPB ONE ×2 (14:20→21:11)
[2022-05-21] MEDS ORDERED: DEXTROSE 5%-WATER - 50 ML IVPB ONE ×2 (14:21→21:11)
[2022-05-21] MEDS: PIPERACILLIN/TAZOB 2.25 GM 2.25 GM in DEXTROSE 5%-WATER - 50 ML IVPB SCH ×2 (14:27→21:45)
[2022-05-21] MEDS ORDERED: PIPERACILLIN/TAZOB 2.25 GM 2.25 GM in DEXTROSE 5%-WATER - 50 ML IVPB SCH (15:00)
[2022-05-21] MEDS: ATORVASTATIN CA 20 MG TABLET (FP) PO SCH (21:45)
[2022-05-21] MEDS: INSULIN (LEVEMIR) 100 UNITS/ML UNITS SQ SCH (21:50)
[2022-05-22] MEDS ORDERED: PIPERACILLIN/TAZOBACTAM 2.25 GM VIAL IVPB ONE ×2 (03:39→08:17)
[2022-05-22] MEDS ORDERED: DEXTROSE 5%-WATER - 50 ML IVPB ONE ×2 (03:39→08:18)
[2022-05-22] MEDS: PIPERACILLIN/TAZOB 2.25 GM 2.25 GM in DEXTROSE 5%-WATER - 50 ML IVPB SCH ×2 (03:47→08:35)
[2022-05-22] MEDS: HEPARIN NA (PORCINE) 5,000 UNITS/ML 1ML VIAL SQ SCH ×3 (06:12→21:29)
[2022-05-22] MEDS: INSULIN SLIDING SCALE (NOVOLOG) 1 VIAL SQ SCH ×4 (07:41→21:30)
[2022-05-22] MEDS: TAMSULOSIN HCL 0.4 MG CAP PO SCH (08:09)
[2022-05-22] MEDS: propRANOLol HCL 10 MG TABLET PO SCH ×2 (09:13→21:37)
[2022-05-22 11:09] LABS: BASO % 0.2 % (0-2.0); EOS % 1.4 % (0-4.5); HEMATOCRIT 27.3 % (32.4-45.2); HEMOGLOBIN 9.2 GM/dL (10.7-15.3); LYMPH % 10.4 % (8-40); MCH 30.1 pg (25.7-33.7); MCHC 33.7 g/dl (32.0-36.0); MEAN CELL VOLUME 89.2 fl (80-96); MEAN PLT VOLUME 7.9 fl (7.5-11.1); MONO % 9.9 % (3.8-10.2); NEUT % 78.1 % (42.8-82.8); PLATELET COUNT 260 10^3/uL (134-434); RBC 3.06 M/mm3 (3.60-5.2); RDW 15.4 % (11.6-15.6); WHITE BLOOD COUNT 6.2 K/mm3 (4.0-10.0)
[2022-05-22 11:37] LABS: BLOOD UREA NITROGEN 23.9 mg/dL (7-18); CALCIUM 8.1 mg/dL (8.5-10.1)
[2022-05-22 11:41] LABS: CREATININE 1.4 mg/dL (0.55-1.3)
[2022-05-22] MEDS ORDERED: FUROSEMIDE 20 MG TABLET (FP) PO ONE (13:00)
[2022-05-22] MEDS ORDERED: INSULIN (NOVOLOG) ASPART 100 UNITS/ML 10ML VIAL ONE (21:22)
[2022-05-22] MEDS: ATORVASTATIN CA 20 MG TABLET (FP) PO SCH (21:28)
[2022-05-22] MEDS: INSULIN (LEVEMIR) 100 UNITS/ML UNITS SQ SCH (21:29)
[2022-05-23] MEDS: HEPARIN NA (PORCINE) 5,000 UNITS/ML 1ML VIAL SQ SCH (05:47)
[2022-05-23] MEDS: INSULIN SLIDING SCALE (NOVOLOG) 1 VIAL SQ SCH ×2 (06:18→11:17)
[2022-05-23] MEDS: TAMSULOSIN HCL 0.4 MG CAP PO SCH (08:56)
[2022-05-23 09:13] VITALS: BP 120/52; PULSE 103; TEMP 97.9
[2022-05-23] MEDS: propRANOLol HCL 10 MG TABLET PO SCH (09:13)
== END 2022-05-23 14:02 | disposition home or self-care (01) | DRG 690 ==
LOC: JER 15:53 → JERBED 20:02 → J6S 05-19 17:11
PROVIDERS: ADMIT Internal Medicine; ATTEND Internal Medicine
PROC: 0T777DZ Dilation of Left Ureter with Intraluminal Device, Via Natural or Artificial Opening (ICD-10-PCS; principal; 2022-05-19 13:00)
PROC: 0T767DZ Dilation of Right Ureter with Intraluminal Device, Via Natural or Artificial Opening (ICD-10-PCS; 2022-05-19 13:00)
DX: N13.6 Pyonephrosis (principal); E87.1 Hypo-osmolality and hyponatremia; N17.9 Acute kidney failure, unspecified; E11.22 Type 2 diabetes mellitus with diabetic chronic kidney disease; I12.9 Hypertensive chronic kidney disease with stage 1 through stage 4 chronic kidney disease, or unspecified chronic kidney disease; N18.9 Chronic kidney disease, unspecified; D64.9 Anemia, unspecified; E78.5 Hyperlipidemia, unspecified; R06.09 Other forms of dyspnea
CPT/HCPCS: 0241U-QW; 36415; 74150-TC; 76000-TC-FY; 76775-TC; 80048; 80053; 81003; 82272; 82570; 82728; 82962; 83540; 83550; 83735; 83930; 84100; 84300; 84443; 85025; 85045; 85610; 87086; 87186; 93005; 93010; 94760; 99285-25; J1644

== ENCOUNTER 2022-06-23 04:25 | Day surgery (SDC) | payer OTHER ==
[2022-06-21 10:13] VITALS: BMI 24.0
[2022-06-23] MEDS ORDERED: ACETAMINOPHEN 1000 MG/100 ML BAG IVPB ONE ×2 (15:22→17:22)
[2022-06-23] MEDS ORDERED: PROPOFOL 20 ML ONE (15:36)
[2022-06-23] MEDS ORDERED: LIDOCAINE HCL/PF 2% SDV 5ML VIAL ONE ×2 (15:36→15:37)
[2022-06-23] MEDS ORDERED: BUPIVACAINE HCL/PF 0.5% (5MG/ML) 10 ML VIAL ONE (16:10)
[2022-06-23] MEDS ORDERED: ceFAZolin SODIUM 1 GM VIAL IVPB ONE (16:25)
[2022-06-23] MEDS ORDERED: ceFAZolin SODIUM 1 GM VIAL ONE (16:27)
[2022-06-23] MEDS ORDERED: MIDAZOLAM HCL 2 MG/2 ML SINGLE DOSE VIAL ONE (16:28)
[2022-06-23] MEDS ORDERED: ONDANSETRON 4 MG/2 ML VIAL IVPUSH PRN (17:21)
[2022-06-23] MEDS ORDERED: oxyCODONE HCL 5 MG TABLET PO PRN (17:21)
[2022-06-23 19:19] VITALS: RESP 18
[2022-06-23] MEDS: DEXTROSE 5%-0.45% SALINE 1,000 ML IV SCH (20:47)
[2022-06-23] MEDS: LACTATED RINGERS SOLUTION 1,000 ML IV SCH (21:43)
[2022-06-24] MEDS: ACETAMINOPHEN 325 MG TABLET (FP) PO PRN ×2 (00:01→16:09)
[2022-06-24] MEDS: IBUPROFEN 800 MG/8 ML IJ IVPB SCH ×2 (00:09→16:13)
[2022-06-24 11:48] VITALS: TEMP 98.5
[2022-06-24] MEDS ORDERED: propRANOLol HCL 10 MG TABLET PO ONE (13:00)
[2022-06-24 13:59] VITALS: BP 146/73; PULSE 112
[2022-06-24] MEDS: DEXTROSE 5%-0.45% SALINE 1,000 ML IV SCH (16:13)
[2022-06-24] MEDS ORDERED: NITROFURANTOIN MACROCRYSTAL 50 MG CAPSULE (FP) PO ONE (16:15)
[2022-06-24] MEDS: LACTATED RINGERS SOLUTION 1,000 ML IV SCH (18:23)
== END 2022-06-24 18:39 | disposition home or self-care (01) ==
LOC: JASU-SURG 04:25 → J6S 20:21 → JASU-SURG 06-24 18:39
PROVIDERS: ATTEND Urology
PROC: 0TC78ZZ Extirpation of Matter from Left Ureter, Via Natural or Artificial Opening Endoscopic (ICD-10-PCS; principal; 2022-06-23 15:30)
PROC: 0T778DZ Dilation of Left Ureter with Intraluminal Device, Via Natural or Artificial Opening Endoscopic (ICD-10-PCS; 2022-06-23 15:30)
DX: N20.1 Calculus of ureter (principal)
CPT/HCPCS: 76000-TC-FY; 82962; 94760

== ENCOUNTER 2022-12-23 15:31 | Emergency (ER) | payer OTHER ==
[2022-12-23 15:40] VITALS: BP 147/91; PULSE 100; RESP 18; TEMP 98; BMI 26.7
[2022-12-23 17:54] LABS: EPI CELLS 1 /uL (0-25.1); HYALINE CASTS 1 /uL (0-3.1); PH,URINE 5.5 (5.0-8.0); URINE APPEARANCE CLOUDY; URINE BACTERIA 9 /uL (0-1359); URINE BILIRUBIN NEGATIVE (NEGATIVE); URINE COLOR YELLOW; URINE GLUCOSE (UA) NEGATIVE (NEGATIVE); URINE KETONE NEGATIVE (NEGATIVE); URINE LEUK ESTERASE 3+ (NEGATIVE); URINE NITRITE NEGATIVE (NEGATIVE); URINE PROTEIN TRACE (NEGATIVE); URINE RBC 39 /uL (0-23.9); URINE UROBILINOGEN 0.2 mg/dL (0.2-1.0); URINE WBC 2447 /uL (0-25.8)
[2022-12-23 20:25] LABS: YEAST NONE SEEN (NEGATIVE)
== END 2022-12-23 18:11 | disposition home or self-care (01) ==
LOC: JER 15:31 → JERFT 15:31
DX: J20.9 Acute bronchitis, unspecified (principal)
CPT/HCPCS: 0241U-QW; 71046-TC-FY; 81003; 87086; 99284-25

== ENCOUNTER 2023-03-05 14:27 | Inpatient (IN) | payer OTHER ==
[2023-03-05 15:08] VITALS: BMI 26.0
[2023-03-05] MEDS ORDERED: ALBUTEROL SO4 2.5/IPRATROPIUM 0.5 INH SOL 3 ML VIAL.NEB. NEB SCH (17:00)
[2023-03-05] MEDS ORDERED: ALBUTEROL SO4 2.5/IPRATROPIUM 0.5 INH SOL 3 ML VIAL.NEB. NEB ONE ×2 (17:20→20:21)
[2023-03-05 18:07] LABS: BASO % 0.2 % (0-2.0); EOS % 1.7 % (0-4.5); HEMATOCRIT 26.8 % (32.4-45.2); HEMOGLOBIN 8.9 GM/dL (10.7-15.3); LYMPH % 15.6 % (8-40); MCH 28.3 pg (25.7-33.7); MCHC 33.1 g/dl (32.0-36.0); MEAN CELL VOLUME 85.5 fl (80-96); MEAN PLT VOLUME 7.3 fl (7.5-11.1); NEUT % 71.5 % (42.8-82.8); PLATELET COUNT 225 10^3/uL (134-434); RBC 3.14 M/mm3 (3.60-5.2); RDW 16.6 % (11.6-15.6); WHITE BLOOD COUNT 7.2 K/mm3 (4.0-10.0)
[2023-03-05 18:09] LABS: EPI CELLS 2 /uL (0-25.1); HYALINE CASTS 0 /uL (0-3.1); URINE APPEARANCE TURBID; URINE BACTERIA 33 /uL (0-1359); URINE BILIRUBIN NEGATIVE (NEGATIVE); URINE COLOR YELLOW; URINE GLUCOSE (UA) NEGATIVE (NEGATIVE); URINE KETONE NEGATIVE (NEGATIVE); URINE LEUK ESTERASE 3+ (NEGATIVE); URINE NITRITE NEGATIVE (NEGATIVE); URINE PROTEIN 2+ (NEGATIVE); URINE RBC 2835 /uL (0-23.9); URINE UROBILINOGEN 0.2 mg/dL (0.2-1.0); URINE WBC 6366 /uL (0-25.8)
[2023-03-05 18:16] LABS: INR 1.05 (0.83-1.09); PROTHROMBIN TIME (PATIENT) 12.2 SEC (9.7-13.0)
[2023-03-05 18:18] LABS: ACTIVATED PTT 36.9 SECONDS (25.2-36.5)
[2023-03-05 18:29] LABS: POTASSIUM 4.5 mmol/L (3.5-5.1)
[2023-03-05 18:31] LABS: ALBUMIN 3.5 g/dl (3.4-5.0); BLOOD UREA NITROGEN 31.1 mg/dL (7-18); CALCIUM 8.6 mg/dL (8.5-10.1)
[2023-03-05 18:35] LABS: BILIRUBIN,TOTAL 0.3 mg/dL (0.2-1); CREATININE 1.3 mg/dL (0.55-1.3); TOT PROT 7.9 g/dl (6.4-8.2)
[2023-03-05] MEDS ORDERED: PIPERACILLIN/TAZOB 4.5 GM 4.5 GM in DEXTROSE 5%-WATER 100 ML IVPB ONE (19:43)
[2023-03-05] MEDS ORDERED: PIPERACILLIN/TAZOB 4.5 GM 4.5 GM/100 ML BAG IVPB ONE (20:21)
[2023-03-05] MEDS: SODIUM CHLORIDE 1,000 ML IV SCH (23:10)
[2023-03-06] MEDS: PIPERACILLIN/TAZOB 2.25 GM 2.25 GM in DEXTROSE 5%-WATER - 50 ML IVPB SCH ×3 (02:29→15:51)
[2023-03-06 07:04] LABS: BASO % 0.2 % (0-2.0); EOS % 1.8 % (0-4.5); HEMATOCRIT 24.5 % (32.4-45.2); HEMOGLOBIN 8.3 GM/dL (10.7-15.3); LYMPH % 12.4 % (8-40); MCH 28.7 pg (25.7-33.7); MCHC 33.8 g/dl (32.0-36.0); MEAN PLT VOLUME 7.2 fl (7.5-11.1); MONO % 10.5 % (3.8-10.2); NEUT % 75.1 % (42.8-82.8); PLATELET COUNT 203 10^3/uL (134-434); RBC 2.88 M/mm3 (3.60-5.2); RDW 16.7 % (11.6-15.6); WHITE BLOOD COUNT 6.2 K/mm3 (4.0-10.0)
[2023-03-06 07:24] LABS: POTASSIUM 4.3 mmol/L (3.5-5.1)
[2023-03-06 07:29] LABS: CALCIUM 8.4 mg/dL (8.5-10.1)
[2023-03-06 07:30] LABS: BLOOD UREA NITROGEN 32.2 mg/dL (7-18); MAGNESIUM 2.2 mg/dL (1.8-2.4)
[2023-03-06 07:32] LABS: CREATININE 1.4 mg/dL (0.55-1.3)
[2023-03-06 07:33] LABS: BILIRUBIN,TOTAL 0.4 mg/dL (0.2-1); PHOSPHOROUS 3.7 mg/dL (2.5-4.9); TOT PROT 6.9 g/dl (6.4-8.2)
[2023-03-06] MEDS: ALBUTEROL SO4 HFA INHALER IH SCH ×2 (11:28→22:23)
[2023-03-06] MEDS: ENOXAPARIN NA (PORCINE) 40 MG/0.4 ML DISP.SYRIN SQ SCH (11:29)
[2023-03-06] MEDS: propRANOLol HCL 10 MG TABLET PO SCH ×2 (11:29→22:09)
[2023-03-06] MEDS ORDERED: POLYETHYLENE GLYCOL (HEALTHYLAX) 3350 17 GM PACKET PO ONE (15:15)
[2023-03-06] MEDS ORDERED: ALBUTEROL SO4 2.5/IPRATROPIUM 0.5 INH SOL 3 ML VIAL.NEB. NEB ONE (19:30)
[2023-03-06] MEDS: INSULIN SLIDING SCALE (NOVOLOG) 1 VIAL SQ SCH (22:22)
[2023-03-06] MEDS: CEFTRIAXONE 1 GM in DEXTROSE 5%-WATER - 50 ML IVPB SCH (22:23)
[2023-03-06] MEDS: SODIUM CHLORIDE 1,000 ML IV SCH (23:00)
[2023-03-07] MEDS: FUROSEMIDE 20 MG TABLET (FP) PO SCH (05:58)
[2023-03-07 07:19] LABS: BASO % 0.2 % (0-2.0); EOS % 2.5 % (0-4.5); HEMATOCRIT 26.1 % (32.4-45.2); MCH 29.4 pg (25.7-33.7); MCHC 34.4 g/dl (32.0-36.0); MEAN CELL VOLUME 85.5 fl (80-96); MEAN PLT VOLUME 7.8 fl (7.5-11.1); MONO % 9.1 % (3.8-10.2); NEUT % 75.2 % (42.8-82.8); PLATELET COUNT 208 10^3/uL (134-434); RBC 3.06 M/mm3 (3.60-5.2); RDW 16.7 % (11.6-15.6); WHITE BLOOD COUNT 5.3 K/mm3 (4.0-10.0)
[2023-03-07] MEDS: INSULIN SLIDING SCALE (NOVOLOG) 1 VIAL SQ SCH ×4 (07:21→21:30)
[2023-03-07 07:41] LABS: POTASSIUM 4.6 mmol/L (3.5-5.1)
[2023-03-07 07:48] LABS: ALBUMIN 2.9 g/dl (3.4-5.0); BLOOD UREA NITROGEN 26.8 mg/dL (7-18); CALCIUM 8.4 mg/dL (8.5-10.1)
[2023-03-07 07:49] LABS: MAGNESIUM 2.1 mg/dL (1.8-2.4)
[2023-03-07 07:51] LABS: CREATININE 1.5 mg/dL (0.55-1.3)
[2023-03-07 07:52] LABS: BILIRUBIN,TOTAL 0.3 mg/dL (0.2-1); TOT PROT 6.6 g/dl (6.4-8.2)
[2023-03-07] MEDS: ENOXAPARIN NA (PORCINE) 40 MG/0.4 ML DISP.SYRIN SQ SCH (10:27)
[2023-03-07] MEDS: AZITHROMYCIN 250 MG TABLET PO SCH (10:27)
[2023-03-07] MEDS: propRANOLol HCL 10 MG TABLET PO SCH ×2 (10:28→21:25)
[2023-03-07] MEDS: ETHAMBUTOL HCL 400 MG TABLET PO SCH (10:28)
[2023-03-07] MEDS: CEFTRIAXONE 1 GM in DEXTROSE 5%-WATER - 50 ML IVPB SCH (10:28)
[2023-03-07] MEDS: ALBUTEROL SO4 HFA INHALER IH SCH ×2 (10:29→21:25)
[2023-03-07] MEDS: POLYETHYLENE GLYCOL (HEALTHYLAX) 3350 17 GM PACKET PO SCH (10:29)
[2023-03-08] MEDS: INSULIN SLIDING SCALE (NOVOLOG) 1 VIAL SQ SCH ×4 (06:08→23:02)
[2023-03-08 06:45] LABS: BASO % 0.2 % (0-2.0); EOS % 2.7 % (0-4.5); HEMATOCRIT 28.2 % (32.4-45.2); HEMOGLOBIN 9.5 GM/dL (10.7-15.3); MCH 28.9 pg (25.7-33.7); MCHC 33.8 g/dl (32.0-36.0); MEAN CELL VOLUME 85.4 fl (80-96); MEAN PLT VOLUME 7.3 fl (7.5-11.1); MONO % 11.8 % (3.8-10.2); NEUT % 71.3 % (42.8-82.8); PLATELET COUNT 195 10^3/uL (134-434); RDW 16.6 % (11.6-15.6); WHITE BLOOD COUNT 5.1 K/mm3 (4.0-10.0)
[2023-03-08 07:07] LABS: POTASSIUM 4.3 mmol/L (3.5-5.1)
[2023-03-08 07:11] LABS: CALCIUM 8.4 mg/dL (8.5-10.1)
[2023-03-08 07:12] LABS: BLOOD UREA NITROGEN 25.8 mg/dL (7-18); MAGNESIUM 2.1 mg/dL (1.8-2.4)
[2023-03-08 07:15] LABS: CREATININE 1.3 mg/dL (0.55-1.3)
[2023-03-08 07:16] LABS: BILIRUBIN,TOTAL 0.3 mg/dL (0.2-1)
[2023-03-08] MEDS: ENOXAPARIN NA (PORCINE) 40 MG/0.4 ML DISP.SYRIN SQ SCH (09:09)
[2023-03-08] MEDS: CEFTRIAXONE 1 GM in DEXTROSE 5%-WATER - 50 ML IVPB SCH (09:09)
[2023-03-08] MEDS: propRANOLol HCL 10 MG TABLET PO SCH ×2 (09:09→22:46)
[2023-03-08] MEDS: POLYETHYLENE GLYCOL (HEALTHYLAX) 3350 17 GM PACKET PO SCH (09:09)
[2023-03-08] MEDS: ALBUTEROL SO4 HFA INHALER IH SCH ×2 (09:10→22:46)
[2023-03-08] MEDS: LACTOBACILLUS ACIDOPHILUS 1 TABLET PO SCH (12:48)
[2023-03-09] MEDS: FUROSEMIDE 20 MG TABLET (FP) PO SCH (01:37)
[2023-03-09] MEDS: INSULIN SLIDING SCALE (NOVOLOG) 1 VIAL SQ SCH ×4 (06:09→21:15)
[2023-03-09 07:11] LABS: BASO % 0.2 % (0-2.0); EOS % 2.4 % (0-4.5); HEMATOCRIT 27.1 % (32.4-45.2); HEMOGLOBIN 9.1 GM/dL (10.7-15.3); LYMPH % 13.6 % (8-40); MCH 28.6 pg (25.7-33.7); MCHC 33.6 g/dl (32.0-36.0); MEAN CELL VOLUME 85.1 fl (80-96); MEAN PLT VOLUME 7.8 fl (7.5-11.1); MONO % 11.2 % (3.8-10.2); NEUT % 72.6 % (42.8-82.8); PLATELET COUNT 205 10^3/uL (134-434); RBC 3.18 M/mm3 (3.60-5.2); RDW 16.2 % (11.6-15.6); WHITE BLOOD COUNT 5.4 K/mm3 (4.0-10.0)
[2023-03-09 07:30] LABS: POTASSIUM 4.6 mmol/L (3.5-5.1)
[2023-03-09 07:34] LABS: ALBUMIN 3.2 g/dl (3.4-5.0); BLOOD UREA NITROGEN 32.7 mg/dL (7-18); CALCIUM 8.7 mg/dL (8.5-10.1); MAGNESIUM 2.2 mg/dL (1.8-2.4)
[2023-03-09 07:37] LABS: CREATININE 1.4 mg/dL (0.55-1.3)
[2023-03-09 07:39] LABS: BILIRUBIN,TOTAL 0.3 mg/dL (0.2-1); TOT PROT 7.2 g/dl (6.4-8.2)
[2023-03-09] MEDS: LACTOBACILLUS ACIDOPHILUS 1 TABLET PO SCH (09:39)
[2023-03-09] MEDS: ENOXAPARIN NA (PORCINE) 40 MG/0.4 ML DISP.SYRIN SQ SCH (09:40)
[2023-03-09] MEDS: POLYETHYLENE GLYCOL (HEALTHYLAX) 3350 17 GM PACKET PO SCH (09:40)
[2023-03-09] MEDS: ALBUTEROL SO4 HFA INHALER IH SCH ×2 (09:41→21:15)
[2023-03-09] MEDS: LOPERAMIDE HCL 2 MG CAPSULE PO PRN ×2 (09:41→17:20)
[2023-03-09] MEDS: AZITHROMYCIN 250 MG TABLET PO SCH (09:41)
[2023-03-09] MEDS: ETHAMBUTOL HCL 400 MG TABLET PO SCH (09:41)
[2023-03-09] MEDS: propRANOLol HCL 10 MG TABLET PO SCH ×2 (09:41→21:14)
[2023-03-09] MEDS ORDERED: HYDROCORTISONE 0.5% TOPICAL CREAM 30 GM TUBE TP PRN (10:41)
[2023-03-10] MEDS: INSULIN SLIDING SCALE (NOVOLOG) 1 VIAL SQ SCH ×4 (06:48→21:10)
[2023-03-10 07:12] LABS: BASO % 0.2 % (0-2.0); EOS % 1.7 % (0-4.5); HEMATOCRIT 27.2 % (32.4-45.2); HEMOGLOBIN 9.2 GM/dL (10.7-15.3); LYMPH % 11.6 % (8-40); MEAN CELL VOLUME 85.1 fl (80-96); MEAN PLT VOLUME 7.6 fl (7.5-11.1); NEUT % 76.5 % (42.8-82.8); PLATELET COUNT 217 10^3/uL (134-434); RBC 3.19 M/mm3 (3.60-5.2); RDW 16.7 % (11.6-15.6); WHITE BLOOD COUNT 7.1 K/mm3 (4.0-10.0)
[2023-03-10 08:05] LABS: ALBUMIN 3.2 g/dl (3.4-5.0); BILIRUBIN,TOTAL 0.2 mg/dL (0.2-1); CALCIUM 8.7 mg/dL (8.5-10.1); CREATININE 1.5 mg/dL (0.55-1.3); MAGNESIUM 2.1 mg/dL (1.8-2.4); POTASSIUM 4.2 mmol/L (3.5-5.1); TOT PROT 7.4 g/dl (6.4-8.2)
[2023-03-10] MEDS: LACTOBACILLUS ACIDOPHILUS 1 TABLET PO SCH (09:35)
[2023-03-10] MEDS: LOPERAMIDE HCL 2 MG CAPSULE PO PRN (09:35)
[2023-03-10] MEDS: POLYETHYLENE GLYCOL (HEALTHYLAX) 3350 17 GM PACKET PO SCH (09:35)
[2023-03-10] MEDS: propRANOLol HCL 10 MG TABLET PO SCH ×2 (09:35→21:18)
[2023-03-10] MEDS: ALBUTEROL SO4 HFA INHALER IH SCH ×2 (09:35→21:11)
[2023-03-10] MEDS: ENOXAPARIN NA (PORCINE) 40 MG/0.4 ML DISP.SYRIN SQ SCH (09:35)
[2023-03-10] MEDS: OSIMERTINIB MESYLATE 80 MG PO SCH ×2 (22:24→23:58)
[2023-03-10] MEDS: [UNRECOGNIZED DRUG - OTHER] IH SCH ×2 (22:24→23:57)
[2023-03-10] MEDS: PIPERACILLIN/TAZOB 2.25 GM 2.25 GM in DEXTROSE 5%-WATER - 50 ML IVPB SCH (23:57)
[2023-03-11] MEDS: INSULIN SLIDING SCALE (NOVOLOG) 1 VIAL SQ SCH ×4 (06:00→21:22)
[2023-03-11 07:12] LABS: BASO % 0.2 % (0-2.0); EOS % 2.4 % (0-4.5); HEMATOCRIT 26.1 % (32.4-45.2); HEMOGLOBIN 8.7 GM/dL (10.7-15.3); LYMPH % 15.2 % (8-40); MCH 28.6 pg (25.7-33.7); MCHC 33.5 g/dl (32.0-36.0); MEAN CELL VOLUME 85.2 fl (80-96); MEAN PLT VOLUME 7.3 fl (7.5-11.1); MONO % 12.4 % (3.8-10.2); NEUT % 69.8 % (42.8-82.8); PLATELET COUNT 176 10^3/uL (134-434); RBC 3.06 M/mm3 (3.60-5.2); RDW 16.4 % (11.6-15.6); WHITE BLOOD COUNT 5.4 K/mm3 (4.0-10.0)
[2023-03-11 08:23] LABS: BILIRUBIN,TOTAL 0.3 mg/dL (0.2-1); BLOOD UREA NITROGEN 38.1 mg/dL (7-18); CALCIUM 8.5 mg/dL (8.5-10.1); CREATININE 1.5 mg/dL (0.55-1.3); POTASSIUM 4.3 mmol/L (3.5-5.1); TOT PROT 7.1 g/dl (6.4-8.2)
[2023-03-11] MEDS: LACTOBACILLUS ACIDOPHILUS 1 TABLET PO SCH (09:34)
[2023-03-11] MEDS: ENOXAPARIN NA (PORCINE) 40 MG/0.4 ML DISP.SYRIN SQ SCH (09:34)
[2023-03-11] MEDS: propRANOLol HCL 10 MG TABLET PO SCH ×2 (09:35→21:48)
[2023-03-11] MEDS: POLYETHYLENE GLYCOL (HEALTHYLAX) 3350 17 GM PACKET PO SCH (09:36)
[2023-03-11] MEDS: ALBUTEROL SO4 HFA INHALER IH SCH ×2 (09:37→21:51)
[2023-03-11 11:33] LABS: EPI CELLS 1 /uL (0-25.1); HYALINE CASTS 3 /uL (0-3.1); URINE APPEARANCE TURBID; URINE BACTERIA 11 /uL (0-1359); URINE BILIRUBIN NEGATIVE (NEGATIVE); URINE COLOR YELLOW; URINE GLUCOSE (UA) TRACE (NEGATIVE); URINE KETONE NEGATIVE (NEGATIVE); URINE LEUK ESTERASE 3+ (NEGATIVE); URINE NITRITE NEGATIVE (NEGATIVE); URINE PROTEIN 2+ (NEGATIVE); URINE UROBILINOGEN 0.2 mg/dL (0.2-1.0); URINE WBC 11325 /uL (0-25.8)
[2023-03-11 11:35] LABS: URINE RBC 15096.2 /uL (0-23.9); YEAST NEGATIVE (NEGATIVE)
[2023-03-11] MEDS: BANATROL PLUS POWDER PACKET PO SCH ×2 (14:12→21:21)
[2023-03-11] MEDS: CEPHALEXIN MONOHYDRATE 500 MG CAPSULE (UD) PO SCH ×2 (15:35→21:21)
[2023-03-11 21:39] LABS: BASO % 0.2 % (0-2.0); EOS % 2.3 % (0-4.5); HEMATOCRIT 26.1 % (32.4-45.2); HEMOGLOBIN 8.6 GM/dL (10.7-15.3); LYMPH % 16.1 % (8-40); MCHC 33.1 g/dl (32.0-36.0); MEAN CELL VOLUME 84.8 fl (80-96); MEAN PLT VOLUME 7.2 fl (7.5-11.1); MONO % 11.6 % (3.8-10.2); NEUT % 69.8 % (42.8-82.8); PLATELET COUNT 178 10^3/uL (134-434); RBC 3.08 M/mm3 (3.60-5.2); RDW 16.7 % (11.6-15.6); WHITE BLOOD COUNT 5.7 K/mm3 (4.0-10.0)
[2023-03-12] MEDS: BANATROL PLUS POWDER PACKET PO SCH ×2 (06:25→14:17)
[2023-03-12] MEDS: INSULIN SLIDING SCALE (NOVOLOG) 1 VIAL SQ SCH ×2 (06:26→11:42)
[2023-03-12 07:20] LABS: POTASSIUM 4.8 mmol/L (3.5-5.1)
[2023-03-12 07:24] LABS: CALCIUM 8.4 mg/dL (8.5-10.1)
[2023-03-12 07:25] LABS: BLOOD UREA NITROGEN 37.1 mg/dL (7-18)
[2023-03-12 07:28] LABS: CREATININE 1.3 mg/dL (0.55-1.3)
[2023-03-12] MEDS ORDERED: FUROSEMIDE 20 MG TABLET (FP) PO SCH (09:00)
[2023-03-12 09:33] LABS: BASO % 0.2 % (0-2.0); HEMATOCRIT 24.4 % (32.4-45.2); HEMOGLOBIN 7.9 GM/dL (10.7-15.3); LYMPH % 13.8 % (8-40); MCH 27.6 pg (25.7-33.7); MCHC 32.5 g/dl (32.0-36.0); MEAN CELL VOLUME 84.9 fl (80-96); MEAN PLT VOLUME 7.4 fl (7.5-11.1); MONO % 11.1 % (3.8-10.2); NEUT % 72.9 % (42.8-82.8); PLATELET COUNT 173 10^3/uL (134-434); RBC 2.88 M/mm3 (3.60-5.2); WHITE BLOOD COUNT 5.2 K/mm3 (4.0-10.0)
[2023-03-12] MEDS: POLYETHYLENE GLYCOL (HEALTHYLAX) 3350 17 GM PACKET PO SCH (09:38)
[2023-03-12] MEDS: ENOXAPARIN NA (PORCINE) 40 MG/0.4 ML DISP.SYRIN SQ SCH (09:38)
[2023-03-12] MEDS: ALBUTEROL SO4 HFA INHALER IH SCH (09:38)
[2023-03-12] MEDS: AZITHROMYCIN 250 MG TABLET PO SCH (09:39)
[2023-03-12] MEDS: CEPHALEXIN MONOHYDRATE 500 MG CAPSULE (UD) PO SCH (09:39)
[2023-03-12] MEDS: LACTOBACILLUS ACIDOPHILUS 1 TABLET PO SCH (09:39)
[2023-03-12] MEDS: propRANOLol HCL 10 MG TABLET PO SCH (09:53)
[2023-03-12] MEDS: PHENAZOPYRIDINE HCL 100 MG TABLET (FP) PO SCH ×2 (11:54→14:23)
[2023-03-12 12:58] VITALS: RESP 19
[2023-03-12 14:41] VITALS: BP 126/65; PULSE 91; TEMP 98
== END 2023-03-12 17:20 | DRG 181 ==
LOC: JER 14:27 → JERBED 19:05 → J4S 21:31 → OBSVTOIN 21:46
PROVIDERS: ADMIT Internal Medicine; ATTEND Nurse Practitioner Acute Care
DX: C34.90 Malignant neoplasm of unspecified part of unspecified bronchus or lung (principal); A31.0 Pulmonary mycobacterial infection; J98.11 Atelectasis; E87.1 Hypo-osmolality and hyponatremia; D64.9 Anemia, unspecified; E78.5 Hyperlipidemia, unspecified; E11.9 Type 2 diabetes mellitus without complications; Z79.4 Long term (current) use of insulin; I45.10 Unspecified right bundle-branch block; I12.9 Hypertensive chronic kidney disease with stage 1 through stage 4 chronic kidney disease, or unspecified chronic kidney disease; N18.9 Chronic kidney disease, unspecified; R00.2 Palpitations; E83.42 Hypomagnesemia; J38.00 Paralysis of vocal cords and larynx, unspecified; R19.7 Diarrhea, unspecified; R05.3 Chronic cough
CPT/HCPCS: 0241U-QW; 36415; 71045-TC-FY; 74176-TC; 80048; 80053; 81003; 82550; 82962; 83605; 83735; 83880; 84100; 84484; 85025; 85610; 85730; 86480; 86850; 86900; 86901; 87040; 87086; 87324; 87449; 93005; 93010; 93306-TC; 94640; 97116-GP; 97162-GP; 99285-25; C9803-CS; G0378; U0003; U0005

== ENCOUNTER 2023-08-04 16:33 | Inpatient (IN) | payer OTHER ==
[2023-08-04 16:41] VITALS: BMI 24.8
[2023-08-04 19:01] LABS: BASO % 1.8 % (0-2.0); EOS % 0.5 % (0-4.5); HEMATOCRIT 25.6 % (32.4-45.2); HEMOGLOBIN 8.3 GM/dL (10.7-15.3); LYMPH % 14.5 % (8-40); MCH 25.8 pg (25.7-33.7); MCHC 32.4 g/dl (32.0-36.0); MEAN CELL VOLUME 79.6 fl (80-96); MEAN PLT VOLUME 7.3 fl (7.5-11.1); NEUT % 73.2 % (42.8-82.8); PLATELET COUNT 259 10^3/uL (134-434); RBC 3.21 M/mm3 (3.60-5.2); RDW 18.2 % (11.6-15.6)
[2023-08-04 19:04] LABS: EPI CELLS 0 /uL (0-25.1); HYALINE CASTS 0 /uL (0-3.1); PH,URINE 6.5 (5.0-8.0); URINE APPEARANCE CLEAR; URINE BACTERIA 19 /uL (0-1359); URINE BILIRUBIN NEGATIVE (NEGATIVE); URINE COLOR YELLOW; URINE GLUCOSE (UA) NEGATIVE (NEGATIVE); URINE KETONE NEGATIVE (NEGATIVE); URINE LEUK ESTERASE 3+ (NEGATIVE); URINE NITRITE NEGATIVE (NEGATIVE); URINE PROTEIN 1+ (NEGATIVE); URINE RBC 287 /uL (0-23.9); URINE UROBILINOGEN 0.2 mg/dL (0.2-1.0); URINE WBC 1221 /uL (0-25.8)
[2023-08-04 19:07] LABS: INR 1.07 (0.83-1.09); PROTHROMBIN TIME (PATIENT) 12.4 SEC (9.7-13.0)
[2023-08-04 19:22] LABS: POTASSIUM 4.9 mmol/L (3.5-5.1)
[2023-08-04 19:25] LABS: CALCIUM 8.5 mg/dL (8.5-10.1)
[2023-08-04 19:26] LABS: ALBUMIN 3.4 g/dl (3.4-5.0); BLOOD UREA NITROGEN 26.9 mg/dL (7-18)
[2023-08-04 19:29] LABS: CREATININE 0.9 mg/dL (0.55-1.3)
[2023-08-04 19:31] LABS: BILIRUBIN,TOTAL 0.4 mg/dL (0.2-1); TOT PROT 7.6 g/dl (6.4-8.2)
[2023-08-04] MEDS ORDERED: SODIUM CHLORIDE 0.9% 500 ML INFUS.BAG IV ONE (19:52)
[2023-08-04 22:21] LABS: CALCIUM 8.2 mg/dL (8.5-10.1)
[2023-08-04 22:22] LABS: BLOOD UREA NITROGEN 24.3 mg/dL (7-18)
[2023-08-04 22:25] LABS: CREATININE 0.9 mg/dL (0.55-1.3)
[2023-08-04] MEDS ORDERED: SODIUM CHLORIDE 1,000 ML IV STA (23:28)
[2023-08-05] MEDS: ENOXAPARIN NA (PORCINE) 60 MG/0.6 ML DISP.SYRIN SQ SCH ×3 (00:07→22:45)
[2023-08-05] MEDS ORDERED: ENOXAPARIN NA (PORCINE) 60 MG/0.6 ML DISP.SYRIN SQ ONE (00:08)
[2023-08-05] MEDS ORDERED: HYDROCORTISONE 0.5% TOPICAL CREAM 30 GM TUBE TP PRN (00:44)
[2023-08-05] MEDS ORDERED: LOPERAMIDE HCL 2 MG CAPSULE PO PRN (00:44)
[2023-08-05] MEDS ORDERED: PATIENT'S OWN MEDICATION (NON-FORMULARY) (Insulin Lispro [Humalog Kwikpen U-100] 100 UNIT/ SQ SCH (06:00)
[2023-08-05] MEDS: INSULIN SLIDING SCALE (NOVOLOG) 1 VIAL SQ SCH ×6 (06:22→21:34)
[2023-08-05 08:55] LABS: HEMATOCRIT 24.1 % (32.4-45.2); HEMOGLOBIN 7.8 GM/dL (10.7-15.3); MCH 25.9 pg (25.7-33.7); MCHC 32.4 g/dl (32.0-36.0); MEAN CELL VOLUME 80.1 fl (80-96); MEAN PLT VOLUME 7.3 fl (7.5-11.1); PLATELET COUNT 204 10^3/uL (134-434); RBC 3.01 M/mm3 (3.60-5.2); WHITE BLOOD COUNT 4.1 K/mm3 (4.0-10.0)
[2023-08-05] MEDS: ALBUTEROL SO4 HFA INHALER IH SCH ×2 (09:52→21:36)
[2023-08-05] MEDS: LACTOBACILLUS ACIDOPHILUS 1 TABLET PO SCH (09:52)
[2023-08-05 10:00] LABS: BILIRUBIN,TOTAL 0.2 mg/dL (0.2-1); BLOOD UREA NITROGEN 21.8 mg/dL (7-18); POTASSIUM 4.2 mmol/L (3.5-5.1); TOT PROT 6.6 g/dl (6.4-8.2)
[2023-08-05] MEDS ORDERED: CEFTRIAXONE 1 GM in DEXTROSE 5%-WATER - 50 ML IVPB SCH (10:00)
[2023-08-05] MEDS ORDERED: AMPICILLIN NA/SULBACTAM NA 3 GM in SODIUM CHLORIDE 100 ML IVPB SCH (12:00)
[2023-08-05] MEDS ORDERED: SODIUM CHLORIDE 1,000 ML IV SCH (12:00)
[2023-08-05] MEDS: DOXYCYCLINE INJECTION 100 MG in DEXTROSE 5%-WATER 100 ML IVPB SCH ×2 (12:47→21:36)
[2023-08-05] MEDS: propRANOLol HCL 10 MG TABLET PO SCH ×2 (12:48→21:33)
[2023-08-05] MEDS: methylPREDNISolone NA SUCC 40 MG/1 ML VIAL IVPUSH SCH ×2 (14:18→17:20)
[2023-08-05] MEDS: LEVALBUTEROL HCL 0.31 MG/3 ML VIAL.NEB IH SCH ×2 (14:58→20:04)
[2023-08-05] MEDS: AMPICILLIN NA/SULBACTAM NA 3 GM in SODIUM CHLORIDE 100 ML IVPB SCH (17:20)
[2023-08-05 20:41] LABS: POTASSIUM 4.9 mmol/L (3.5-5.1)
[2023-08-05 20:42] LABS: CALCIUM 8.1 mg/dL (8.5-10.1)
[2023-08-05 20:43] LABS: BLOOD UREA NITROGEN 20.9 mg/dL (7-18)
[2023-08-05 20:45] LABS: CREATININE 1.1 mg/dL (0.55-1.3)
[2023-08-05] MEDS: BUDESONIDE/FORMETEROL FUMARATE 80/4.5 mcg INHALER IH SCH (21:36)
[2023-08-05] MEDS: INSULIN (LEVEMIR) 100 UNITS/ML UNITS SQ SCH (21:41)
[2023-08-06] MEDS: methylPREDNISolone NA SUCC 40 MG/1 ML VIAL IVPUSH SCH ×3 (01:13→17:54)
[2023-08-06] MEDS: AMPICILLIN NA/SULBACTAM NA 3 GM in SODIUM CHLORIDE 100 ML IVPB SCH ×2 (01:13→10:20)
[2023-08-06] MEDS: INSULIN SLIDING SCALE (NOVOLOG) 1 VIAL SQ SCH ×7 (06:16→22:24)
[2023-08-06] MEDS: LEVALBUTEROL HCL 0.31 MG/3 ML VIAL.NEB IH SCH ×3 (07:15→19:34)
[2023-08-06] MEDS ORDERED: INSULIN (LEVEMIR) 100 UNITS/ML UNITS SQ ONE (08:14)
[2023-08-06] MEDS ORDERED: INSULIN SLIDING SCALE (NOVOLOG) 1 VIAL SQ ONE ×2 (08:14→12:37)
[2023-08-06 09:14] LABS: BASO % 0.1 % (0-2.0); HEMATOCRIT 24.3 % (32.4-45.2); HEMOGLOBIN 8.1 GM/dL (10.7-15.3); LYMPH % 14.9 % (8-40); MCHC 33.3 g/dl (32.0-36.0); MEAN CELL VOLUME 78.2 fl (80-96); MEAN PLT VOLUME 7.4 fl (7.5-11.1); MONO % 1.7 % (3.8-10.2); NEUT % 83.3 % (42.8-82.8); PLATELET COUNT 215 10^3/uL (134-434); RDW 18.2 % (11.6-15.6); WHITE BLOOD COUNT 3.1 K/mm3 (4.0-10.0)
[2023-08-06 09:43] LABS: IRON SERUM 32 ug/dL (50-175); POTASSIUM 4.2 mmol/L (3.5-5.1); TOTAL IRON BINDING CAPACITY 304 ug/dL (250-450)
[2023-08-06 09:55] LABS: BLOOD UREA NITROGEN 16.9 mg/dL (7-18); CALCIUM 8.1 mg/dL (8.5-10.1); CREATININE 0.9 mg/dL (0.55-1.3)
[2023-08-06 09:56] LABS: BILIRUBIN,TOTAL 0.2 mg/dL (0.2-1)
[2023-08-06] MEDS ORDERED: FUROSEMIDE 20 MG TABLET (FP) PO SCH (10:00)
[2023-08-06] MEDS: LACTOBACILLUS ACIDOPHILUS 1 TABLET PO SCH (10:18)
[2023-08-06] MEDS: propRANOLol HCL 10 MG TABLET PO SCH ×2 (10:18→22:22)
[2023-08-06] MEDS: DOXYCYCLINE INJECTION 100 MG in DEXTROSE 5%-WATER 100 ML IVPB SCH ×2 (10:20→22:22)
[2023-08-06] MEDS: OSIMERTINIB MESYLATE 80 MG PO SCH (10:21)
[2023-08-06] MEDS: BUDESONIDE/FORMETEROL FUMARATE 80/4.5 mcg INHALER IH SCH ×2 (10:22→22:25)
[2023-08-06] MEDS: ALBUTEROL SO4 HFA INHALER IH SCH ×2 (10:23→22:25)
[2023-08-06] MEDS: ENOXAPARIN NA (PORCINE) 60 MG/0.6 ML DISP.SYRIN SQ SCH (13:31)
[2023-08-06] MEDS: CEFTRIAXONE 1 GM in DEXTROSE 5%-WATER - 50 ML IVPB SCH (14:01)
[2023-08-06] MEDS ORDERED: FUROSEMIDE 20 MG TABLET (FP) PO ONE (15:06)
[2023-08-06] MEDS: INSULIN (LEVEMIR) 100 UNITS/ML UNITS SQ SCH (22:24)
[2023-08-07] MEDS: methylPREDNISolone NA SUCC 40 MG/1 ML VIAL IVPUSH SCH ×3 (01:11→17:32)
[2023-08-07] MEDS: INSULIN SLIDING SCALE (NOVOLOG) 1 VIAL SQ SCH ×7 (06:56→21:33)
[2023-08-07] MEDS: LEVALBUTEROL HCL 0.31 MG/3 ML VIAL.NEB IH SCH ×3 (09:07→20:33)
[2023-08-07] MEDS: LACTOBACILLUS ACIDOPHILUS 1 TABLET PO SCH (09:18)
[2023-08-07] MEDS: FUROSEMIDE 40 MG TABLET (FP) PO SCH (09:18)
[2023-08-07] MEDS: CEFTRIAXONE 1 GM in DEXTROSE 5%-WATER - 50 ML IVPB SCH (09:18)
[2023-08-07] MEDS: ENOXAPARIN NA (PORCINE) 40 MG/0.4 ML DISP.SYRIN SQ SCH (09:19)
[2023-08-07] MEDS: OSIMERTINIB MESYLATE 80 MG PO SCH (09:20)
[2023-08-07] MEDS: ALBUTEROL SO4 HFA INHALER IH SCH ×2 (09:21→21:29)
[2023-08-07] MEDS: BUDESONIDE/FORMETEROL FUMARATE 80/4.5 mcg INHALER IH SCH ×2 (09:21→21:27)
[2023-08-07 09:45] LABS: POTASSIUM 4.3 mmol/L (3.5-5.1)
[2023-08-07 09:50] LABS: BLOOD UREA NITROGEN 28.5 mg/dL (7-18)
[2023-08-07 09:51] LABS: CALCIUM 8.3 mg/dL (8.5-10.1)
[2023-08-07 09:54] LABS: CREATININE 1.1 mg/dL (0.55-1.3)
[2023-08-07 10:03] LABS: EPI CELLS 2 /uL (0-25.1); HYALINE CASTS 0 /uL (0-3.1); URINE APPEARANCE CLEAR; URINE BACTERIA 4 /uL (0-1359); URINE BILIRUBIN NEGATIVE (NEGATIVE); URINE COLOR YELLOW; URINE GLUCOSE (UA) NEGATIVE (NEGATIVE); URINE KETONE NEGATIVE (NEGATIVE); URINE LEUK ESTERASE TRACE (NEGATIVE); URINE NITRITE NEGATIVE (NEGATIVE); URINE PROTEIN NEGATIVE (NEGATIVE); URINE RBC 34 /uL (0-23.9); URINE UROBILINOGEN 0.2 mg/dL (0.2-1.0); URINE WBC 14 /uL (0-25.8)
[2023-08-07] MEDS: DOXYCYCLINE INJECTION 100 MG in DEXTROSE 5%-WATER 100 ML IVPB SCH ×2 (10:27→21:26)
[2023-08-07] MEDS: propRANOLol HCL 10 MG TABLET PO SCH ×2 (10:27→21:31)
[2023-08-07] MEDS: [UNRECOGNIZED DRUG - OTHER] IH SCH (11:06)
[2023-08-08] MEDS: methylPREDNISolone NA SUCC 40 MG/1 ML VIAL IVPUSH SCH ×3 (02:17→17:19)
[2023-08-08] MEDS: INSULIN SLIDING SCALE (NOVOLOG) 1 VIAL SQ SCH ×7 (06:27→23:12)
[2023-08-08] MEDS: LEVALBUTEROL HCL 0.31 MG/3 ML VIAL.NEB IH SCH ×3 (08:20→20:05)
[2023-08-08 09:17] LABS: POTASSIUM 4.7 mmol/L (3.5-5.1)
[2023-08-08 09:22] LABS: BLOOD UREA NITROGEN 38.2 mg/dL (7-18); CALCIUM 8.7 mg/dL (8.5-10.1); CREATININE 1.2 mg/dL (0.55-1.3)
[2023-08-08] MEDS: BUDESONIDE/FORMETEROL FUMARATE 80/4.5 mcg INHALER IH SCH ×2 (09:47→22:19)
[2023-08-08] MEDS: ALBUTEROL SO4 HFA INHALER IH SCH ×2 (09:47→22:32)
[2023-08-08] MEDS: FUROSEMIDE 40 MG TABLET (FP) PO SCH (09:49)
[2023-08-08] MEDS: DOXYCYCLINE INJECTION 100 MG in DEXTROSE 5%-WATER 100 ML IVPB SCH ×2 (09:49→22:20)
[2023-08-08] MEDS: LACTOBACILLUS ACIDOPHILUS 1 TABLET PO SCH (09:49)
[2023-08-08] MEDS: ENOXAPARIN NA (PORCINE) 40 MG/0.4 ML DISP.SYRIN SQ SCH (09:49)
[2023-08-08] MEDS: CEFTRIAXONE 1 GM in DEXTROSE 5%-WATER - 50 ML IVPB SCH (09:49)
[2023-08-08] MEDS: propRANOLol HCL 10 MG TABLET PO SCH ×2 (09:50→22:18)
[2023-08-08] MEDS: OSIMERTINIB MESYLATE 80 MG PO SCH (09:51)
[2023-08-08] MEDS: ATORVASTATIN CA 20 MG TABLET (FP) PO SCH (22:18)
[2023-08-09] MEDS: methylPREDNISolone NA SUCC 40 MG/1 ML VIAL IVPUSH SCH (02:13)
[2023-08-09] MEDS: INSULIN SLIDING SCALE (NOVOLOG) 1 VIAL SQ SCH ×7 (06:31→23:17)
[2023-08-09] MEDS: LEVALBUTEROL HCL 0.31 MG/3 ML VIAL.NEB IH SCH ×3 (07:45→20:05)
[2023-08-09] MEDS ORDERED: SODIUM CHLORIDE 1,000 ML IV SCH (09:15)
[2023-08-09] MEDS: CEFTRIAXONE 1 GM in DEXTROSE 5%-WATER - 50 ML IVPB SCH (09:45)
[2023-08-09] MEDS: FUROSEMIDE 20 MG TABLET (FP) PO SCH (09:45)
[2023-08-09] MEDS: DOXYCYCLINE INJECTION 100 MG in DEXTROSE 5%-WATER 100 ML IVPB SCH ×2 (09:45→23:17)
[2023-08-09] MEDS: ENOXAPARIN NA (PORCINE) 40 MG/0.4 ML DISP.SYRIN SQ SCH (09:45)
[2023-08-09] MEDS: LACTOBACILLUS ACIDOPHILUS 1 TABLET PO SCH (09:45)
[2023-08-09] MEDS: ALBUTEROL SO4 HFA INHALER IH SCH ×2 (09:46→23:28)
[2023-08-09] MEDS: propRANOLol HCL 10 MG TABLET PO SCH ×2 (09:47→23:17)
[2023-08-09] MEDS: BUDESONIDE/FORMETEROL FUMARATE 80/4.5 mcg INHALER IH SCH ×2 (09:47→23:23)
[2023-08-09] MEDS: OSIMERTINIB MESYLATE 80 MG PO SCH (09:48)
[2023-08-09] MEDS ORDERED: methylPREDNISolone NA SUCC 40 MG/1 ML VIAL IVPUSH SCH (10:00)
[2023-08-09] MEDS ORDERED: SODIUM CHLORIDE 1 GM TABLET PO SCH (14:52)
[2023-08-09] MEDS: SODIUM CHLORIDE 1 GM TABLET PO SCH ×2 (17:55→23:27)
[2023-08-09] MEDS ORDERED: LACTOBACILLUS ACIDOPHILUS 1 TABLET PO SCH (22:00)
[2023-08-09] MEDS: ATORVASTATIN CA 20 MG TABLET (FP) PO SCH (23:17)
[2023-08-10] MEDS: INSULIN SLIDING SCALE (NOVOLOG) 1 VIAL SQ SCH ×4 (06:15→13:35)
[2023-08-10] MEDS: LEVALBUTEROL HCL 0.31 MG/3 ML VIAL.NEB IH SCH (08:10)
[2023-08-10 08:59] VITALS: BP 136/67; PULSE 93; RESP 18; TEMP 98
[2023-08-10] MEDS: SODIUM CHLORIDE 1 GM TABLET PO SCH (09:22)
[2023-08-10] MEDS: FUROSEMIDE 20 MG TABLET (FP) PO SCH (09:22)
[2023-08-10] MEDS: propRANOLol HCL 10 MG TABLET PO SCH (09:22)
[2023-08-10] MEDS: OSIMERTINIB MESYLATE 80 MG PO SCH (09:23)
[2023-08-10] MEDS: ENOXAPARIN NA (PORCINE) 40 MG/0.4 ML DISP.SYRIN SQ SCH (09:24)
[2023-08-10] MEDS: BUDESONIDE/FORMETEROL FUMARATE 80/4.5 mcg INHALER IH SCH (09:24)
[2023-08-10] MEDS: ALBUTEROL SO4 HFA INHALER IH SCH (09:24)
[2023-08-10] MEDS ORDERED: methylPREDNISolone NA SUCC 40 MG/1 ML VIAL IVPUSH SCH (10:00)
[2023-08-10] MEDS: CEFTRIAXONE 1 GM in DEXTROSE 5%-WATER - 50 ML IVPB SCH (10:57)
[2023-08-10] MEDS: DOXYCYCLINE INJECTION 100 MG in DEXTROSE 5%-WATER 100 ML IVPB SCH (10:57)
== END 2023-08-10 13:20 | disposition home or self-care (01) | DRG 194 ==
LOC: JER 16:33 → JERBED 22:37 → OBSVTOIN 22:37 → J4S 08-05 00:38
PROVIDERS: ADMIT Internal Medicine; ATTEND Internal Medicine
DX: J18.9 Pneumonia, unspecified organism (principal); C34.90 Malignant neoplasm of unspecified part of unspecified bronchus or lung; E87.1 Hypo-osmolality and hyponatremia; J44.1 Chronic obstructive pulmonary disease with (acute) exacerbation; J44.0 Chronic obstructive pulmonary disease with (acute) lower respiratory infection; R64 Cachexia; E11.9 Type 2 diabetes mellitus without complications; E78.5 Hyperlipidemia, unspecified; I10 Essential (primary) hypertension; D64.9 Anemia, unspecified; J47.9 Bronchiectasis, uncomplicated; Z68.24 Body mass index [BMI] 24.0-24.9, adult
CPT/HCPCS: 0241U-QW; 36415; 71045-TC-FY; 71250-TC; 80048; 80053; 80061; 81003; 82570; 82962; 83036; 83540; 83550; 83880; 83935; 84133; 84300; 84443; 84484; 85025; 85027; 85379; 85610; 87081; 87086; 87899; 93005; 93010; 93306-TC; 93971-TC; 94761; 97116-GP; 97161-GP; 99285-25

== ENCOUNTER 2023-11-12 18:25 | Inpatient (IN) | payer OTHER ==
[2023-11-12] MEDS ORDERED: ACETAMINOPHEN 500 MG TABLET (FP) PO ONE (19:25)
[2023-11-12] MEDS ORDERED: LIDOCAINE 4% PATCH TP ONE ×2 (19:30→20:21)
[2023-11-12] MEDS ORDERED: LIDOCAINE HCL 2% (50ML VIAL) INF ONE (20:01)
[2023-11-12] MEDS ORDERED: LIDOCAINE HCL/PF 1% SDV 5ML VIAL ONE (20:20)
[2023-11-12] MEDS ORDERED: ACETAMINOPHEN 500 MG TABLET (FP) ONE (20:22)
[2023-11-12 20:58] LABS: HEMATOCRIT 25.6 % (32.4-45.2); MCH 25.6 pg (25.7-33.7); MCHC 31.1 g/dl (32.0-36.0); MEAN CELL VOLUME 82.4 fl (80-96); PLATELET COUNT 541 10^3/uL (134-434); RDW 20.1 % (11.6-15.6); WHITE BLOOD COUNT 20.9 K/mm3 (4.0-10.0)
[2023-11-12 21:01] LABS: INR 1.27 (0.83-1.09); PROTHROMBIN TIME (PATIENT) 14.7 SEC (9.7-13.0)
[2023-11-12 21:04] LABS: ACTIVATED PTT 32.4 SECONDS (25.2-36.5)
[2023-11-12 21:16] LABS: POTASSIUM 4.9 mmol/L (3.5-5.1)
[2023-11-12 21:18] LABS: CALCIUM 8.4 mg/dL (8.5-10.1)
[2023-11-12 21:19] LABS: ALBUMIN 2.1 g/dl (3.4-5.0); BLOOD UREA NITROGEN 33.6 mg/dL (7-18)
[2023-11-12 21:22] LABS: CREATININE 1.1 mg/dL (0.55-1.3)
[2023-11-12 21:24] LABS: BILIRUBIN,TOTAL 0.3 mg/dL (0.2-1)
[2023-11-12 22:39] LABS: ANISOCYTOSIS 2+; MACROCYTOSIS 0; OVALOCYTE 2+
[2023-11-13 00:53] LABS: EPI CELLS 4 /uL (0-25.1); HYALINE CASTS 1 /uL (0-3.1); PH,URINE 5.5 (5.0-8.0); URINE APPEARANCE TURBID; URINE BACTERIA 22 /uL (0-1359); URINE BILIRUBIN NEGATIVE (NEGATIVE); URINE COLOR YELLOW; URINE GLUCOSE (UA) NEGATIVE (NEGATIVE); URINE KETONE NEGATIVE (NEGATIVE); URINE LEUK ESTERASE 3+ (NEGATIVE); URINE NITRITE NEGATIVE (NEGATIVE); URINE PROTEIN 1+ (NEGATIVE); URINE RBC 83 /uL (0-23.9); URINE UROBILINOGEN 0.2 mg/dL (0.2-1.0); URINE WBC 5229 /uL (0-25.8)
[2023-11-13] MEDS ORDERED: CEFTRIAXONE 1,000 MG in DEXTROSE 5%-WATER - 50 ML IVPB ONE (01:30)
[2023-11-13] MEDS ORDERED: ALBUTEROL SO4 0.083% IH SOL 2.5 MG/3 ML VIAL.NEB. NEB PRN (03:28)
[2023-11-13] MEDS ORDERED: FUROSEMIDE 40 MG/4 ML INJECTABLE VIAL IVPUSH ONE (04:17)
[2023-11-13] MEDS ORDERED: LIDOCAINE 4% PATCH TP ONE (04:40)
[2023-11-13] MEDS ORDERED: CEFTRIAXONE 1 GM/50 ML BAG ONE (04:41)
[2023-11-13] MEDS: ACETAMINOPHEN 1000 MG/100 ML BAG IVPB SCH ×4 (04:52→22:11)
[2023-11-13] MEDS: LIDOCAINE 5% TOPICAL PATCH TP SCH ×2 (04:52→09:42)
[2023-11-13] MEDS ORDERED: LIDOCAINE PATCH REMOVAL MC SCH (07:00)
[2023-11-13] MEDS: FUROSEMIDE 40 MG/4 ML INJECTABLE VIAL IVPUSH SCH (09:41)
[2023-11-13] MEDS: CEFTRIAXONE 1 GM in DEXTROSE 5%-WATER - 50 ML IVPB SCH (09:41)
[2023-11-13] MEDS ORDERED: ENOXAPARIN NA (PORCINE) 40 MG/0.4 ML DISP.SYRIN SQ SCH (10:00)
[2023-11-13] MEDS ORDERED: OSIMERTINIB MESYLATE 80 MG PO SCH (10:00)
[2023-11-13 10:17] LABS: BASO % 0.1 % (0-2.0); EOS % 0.8 % (0-4.5); HEMATOCRIT 24.9 % (32.4-45.2); HEMOGLOBIN 7.8 GM/dL (10.7-15.3); LYMPH % 2.9 % (8-40); MCHC 31.4 g/dl (32.0-36.0); MEAN CELL VOLUME 82.7 fl (80-96); MONO % 6.5 % (3.8-10.2); NEUT % 89.7 % (42.8-82.8); PLATELET COUNT 522 10^3/uL (134-434); RDW 19.5 % (11.6-15.6); WHITE BLOOD COUNT 18.6 K/mm3 (4.0-10.0)
[2023-11-13 10:38] LABS: POTASSIUM 3.9 mmol/L (3.5-5.1)
[2023-11-13 10:46] LABS: CALCIUM 8.2 mg/dL (8.5-10.1)
[2023-11-13 10:47] LABS: ALBUMIN 1.9 g/dl (3.4-5.0); MAGNESIUM 1.8 mg/dL (1.8-2.4)
[2023-11-13 10:50] LABS: CREATININE 0.9 mg/dL (0.55-1.3); PHOSPHOROUS 4.2 mg/dL (2.5-4.9)
[2023-11-13 10:51] LABS: BILIRUBIN,TOTAL 0.3 mg/dL (0.2-1); TOT PROT 6.2 g/dl (6.4-8.2)
[2023-11-13] MEDS: methylPREDNISolone NA SUCC 40 MG/1 ML VIAL IVPUSH SCH (12:49)
[2023-11-13] MEDS: propRANOLol HCL 10 MG TABLET PO SCH ×3 (14:08→22:21)
[2023-11-13] MEDS: ALBUTEROL SO4 2.5/IPRATROPIUM 0.5 INH SOL 3 ML VIAL.NEB. NEB SCH ×2 (14:20→19:33)
[2023-11-13] MEDS ORDERED: INSULIN (LEVEMIR) 100 UNITS/ML UNITS SQ SCH ×2 (22:00)
[2023-11-13] MEDS: traMADol HCL 50 MG TABLET PO PRN (22:07)
[2023-11-13] MEDS: INSULIN ASPART SLIDING SCALE (NOVOLOG) 1 VIAL SQ SCH (22:10)
[2023-11-13] MEDS: ATORVASTATIN CA 20 MG TABLET (FP) PO SCH (22:11)
[2023-11-13] MEDS: POLYETHYLENE GLYCOL (HEALTHYLAX) 3350 17 GM PACKET PO SCH (22:11)
[2023-11-13] MEDS: LIDOCAINE PATCH REMOVAL MC SCH (22:11)
[2023-11-14] MEDS: INSULIN ASPART SLIDING SCALE (NOVOLOG) 1 VIAL SQ SCH ×4 (06:00→22:33)
[2023-11-14] MEDS: ALBUTEROL SO4 2.5/IPRATROPIUM 0.5 INH SOL 3 ML VIAL.NEB. NEB SCH ×3 (07:40→20:59)
[2023-11-14] MEDS: CEFTRIAXONE 1 GM in DEXTROSE 5%-WATER - 50 ML IVPB SCH (09:18)
[2023-11-14] MEDS: propRANOLol HCL 10 MG TABLET PO SCH ×2 (09:25→22:25)
[2023-11-14] MEDS: FUROSEMIDE 40 MG/4 ML INJECTABLE VIAL IVPUSH SCH (09:25)
[2023-11-14] MEDS: methylPREDNISolone NA SUCC 40 MG/1 ML VIAL IVPUSH SCH (09:28)
[2023-11-14] MEDS: POLYETHYLENE GLYCOL (HEALTHYLAX) 3350 17 GM PACKET PO SCH ×2 (09:28→22:25)
[2023-11-14 10:46] LABS: HEMATOCRIT 24.4 % (32.4-45.2); HEMOGLOBIN 7.6 GM/dL (10.7-15.3); MCHC 31.2 g/dl (32.0-36.0); MEAN CELL VOLUME 83.3 fl (80-96); PLATELET COUNT 528 10^3/uL (134-434); RBC 2.93 M/mm3 (3.60-5.2); RDW 19.8 % (11.6-15.6); WHITE BLOOD COUNT 25.4 K/mm3 (4.0-10.0)
[2023-11-14] MEDS: PANTOPRAZOLE 40 MG TABLET PO SCH (11:11)
[2023-11-14] MEDS: LIDOCAINE 5% TOPICAL PATCH TP SCH (11:15)
[2023-11-14 11:19] LABS: ANISOCYTOSIS 1+; MACROCYTOSIS 0
[2023-11-14 11:26] LABS: POTASSIUM 4.2 mmol/L (3.5-5.1)
[2023-11-14 11:29] LABS: CALCIUM 8.8 mg/dL (8.5-10.1)
[2023-11-14 11:30] LABS: BLOOD UREA NITROGEN 30.4 mg/dL (7-18); MAGNESIUM 2.4 mg/dL (1.8-2.4)
[2023-11-14 11:33] LABS: CREATININE 0.9 mg/dL (0.55-1.3); PHOSPHOROUS 3.9 mg/dL (2.5-4.9)
[2023-11-14] MEDS ORDERED: INSULIN (LEVEMIR) 100 UNITS/ML UNITS SQ SCH (17:00)
[2023-11-14] MEDS: ATORVASTATIN CA 20 MG TABLET (FP) PO SCH (22:30)
[2023-11-14] MEDS: LIDOCAINE PATCH REMOVAL MC SCH (22:31)
[2023-11-15] MEDS: traMADol HCL 50 MG TABLET PO PRN (03:56)
[2023-11-15] MEDS: INSULIN ASPART SLIDING SCALE (NOVOLOG) 1 VIAL SQ SCH ×4 (06:30→22:13)
[2023-11-15] MEDS ORDERED: INSULIN (LEVEMIR) 100 UNITS/ML UNITS SQ SCH (07:43)
[2023-11-15] MEDS: ALBUTEROL SO4 2.5/IPRATROPIUM 0.5 INH SOL 3 ML VIAL.NEB. NEB SCH ×3 (08:20→21:11)
[2023-11-15] MEDS ORDERED: CEFTRIAXONE 1 GM in SODIUM CHLORIDE 50 ML IVPB SCH (10:00)
[2023-11-15] MEDS ORDERED: predniSONE 20 MG TABLET (UD) PO SCH (10:00)
[2023-11-15] MEDS: PANTOPRAZOLE 40 MG TABLET PO SCH (10:36)
[2023-11-15] MEDS: INSULIN (LEVEMIR) 100 UNITS/ML UNITS SQ SCH ×2 (10:36→22:12)
[2023-11-15] MEDS: propRANOLol HCL 10 MG TABLET PO SCH ×2 (10:37→22:12)
[2023-11-15] MEDS: POLYETHYLENE GLYCOL (HEALTHYLAX) 3350 17 GM PACKET PO SCH ×2 (10:37→22:14)
[2023-11-15] MEDS: LIDOCAINE 4% PATCH TP SCH (11:04)
[2023-11-15 11:41] LABS: HEMATOCRIT 26.5 % (32.4-45.2); HEMOGLOBIN 8.4 GM/dL (10.7-15.3); MCH 26.6 pg (25.7-33.7); MCHC 31.6 g/dl (32.0-36.0); MEAN CELL VOLUME 84.1 fl (80-96); MEAN PLT VOLUME 7.4 fl (7.5-11.1); PLATELET COUNT 580 10^3/uL (134-434); RBC 3.15 M/mm3 (3.60-5.2); RDW 19.9 % (11.6-15.6); WHITE BLOOD COUNT 29.9 K/mm3 (4.0-10.0)
[2023-11-15 12:11] LABS: POTASSIUM 4.8 mmol/L (3.5-5.1)
[2023-11-15 12:15] LABS: BLOOD UREA NITROGEN 33.3 mg/dL (7-18)
[2023-11-15 12:18] LABS: CREATININE 0.9 mg/dL (0.55-1.3)
[2023-11-15 12:20] LABS: BILIRUBIN,TOTAL 0.2 mg/dL (0.2-1); TOT PROT 6.5 g/dl (6.4-8.2)
[2023-11-15 12:34] LABS: ANISOCYTOSIS 0; MACROCYTOSIS 0
[2023-11-15] MEDS ORDERED: ACETAMINOPHEN 1000 MG/100 ML BAG IVPB PRN (12:34)
[2023-11-15] MEDS: LIDOCAINE 5% TOPICAL PATCH TP SCH (13:28)
[2023-11-15 16:01] VITALS: BMI 21.1
[2023-11-15] MEDS ORDERED: traMADol HCL 50 MG TABLET PO PRN (18:15)
[2023-11-15] MEDS ORDERED: FUROSEMIDE 40 MG/4 ML INJECTABLE VIAL IVPUSH ONE (18:18)
[2023-11-15] MEDS: ACETAMINOPHEN 1000 MG/100 ML BAG IVPB SCH (18:54)
[2023-11-15] MEDS: ATORVASTATIN CA 20 MG TABLET (FP) PO SCH (22:11)
[2023-11-15] MEDS: LIDOCAINE PATCH REMOVAL MC SCH (22:14)
[2023-11-16] MEDS: ACETAMINOPHEN 1000 MG/100 ML BAG IVPB SCH ×2 (01:33→12:12)
[2023-11-16] MEDS: INSULIN (LEVEMIR) 100 UNITS/ML UNITS SQ SCH (06:26)
[2023-11-16] MEDS: INSULIN ASPART SLIDING SCALE (NOVOLOG) 1 VIAL SQ SCH ×3 (06:27→17:39)
[2023-11-16] MEDS: ALBUTEROL SO4 2.5/IPRATROPIUM 0.5 INH SOL 3 ML VIAL.NEB. NEB SCH ×2 (08:20→14:15)
[2023-11-16] MEDS ORDERED: FUROSEMIDE 20 MG TABLET (FP) PO SCH (10:00)
[2023-11-16] MEDS: LIDOCAINE 4% PATCH TP SCH (10:49)
[2023-11-16] MEDS: PANTOPRAZOLE 40 MG TABLET PO SCH (10:49)
[2023-11-16] MEDS: POLYETHYLENE GLYCOL (HEALTHYLAX) 3350 17 GM PACKET PO SCH ×2 (10:49→10:57)
[2023-11-16] MEDS: propRANOLol HCL 10 MG TABLET PO SCH (10:52)
[2023-11-16 11:03] VITALS: RESP 18; TEMP 97.9
[2023-11-16 12:28] LABS: HEMATOCRIT 28.7 % (32.4-45.2); HEMOGLOBIN 8.9 GM/dL (10.7-15.3); MCH 25.9 pg (25.7-33.7); MCHC 30.9 g/dl (32.0-36.0); PLATELET COUNT 652 10^3/uL (134-434); RBC 3.42 M/mm3 (3.60-5.2); RDW 19.9 % (11.6-15.6); WHITE BLOOD COUNT 28.1 K/mm3 (4.0-10.0)
[2023-11-16 12:51] LABS: POTASSIUM 4.6 mmol/L (3.5-5.1)
[2023-11-16 12:56] LABS: CALCIUM 8.9 mg/dL (8.5-10.1)
[2023-11-16 12:57] LABS: BLOOD UREA NITROGEN 35.7 mg/dL (7-18)
[2023-11-16 15:18] VITALS: BP 101/66; PULSE 85
== END 2023-11-16 18:21 | disposition home or self-care (01) | DRG 871 ==
LOC: JER 18:25 → JERBED 11-13 02:11 → J5S 11-13 06:16
PROVIDERS: ADMIT Internal Medicine; ATTEND Internal Medicine
DX: A41.9 Sepsis, unspecified organism (principal); I50.33 Acute on chronic diastolic (congestive) heart failure; J96.01 Acute respiratory failure with hypoxia; E87.1 Hypo-osmolality and hyponatremia; N39.0 Urinary tract infection, site not specified; I13.0 Hypertensive heart and chronic kidney disease with heart failure and stage 1 through stage 4 chronic kidney disease, or unspecified chronic kidney disease; E78.5 Hyperlipidemia, unspecified; S43.004A Unspecified dislocation of right shoulder joint, initial encounter; X58.XXXA Exposure to other specified factors, initial encounter; Y93.89 Activity, other specified; Y92.89 Other specified places as the place of occurrence of the external cause; Y99.8 Other external cause status; D63.8 Anemia in other chronic diseases classified elsewhere; D75.839 Thrombocytosis, unspecified; R31.29 Other microscopic hematuria; E11.22 Type 2 diabetes mellitus with diabetic chronic kidney disease; N18.9 Chronic kidney disease, unspecified
CPT/HCPCS: 0241U-QW; 36415; 71045-TC-FY; 71046-TC-FY; 71250-TC; 73030-TC-RT-FY; 73060-TC-RT-FY; 74176-TC; 80048; 80053; 81003; 82436; 82570; 82962; 83735; 83880; 83935; 84100; 84133; 84300; 84439; 84443; 84484; 84540; 85025; 85027; 85610; 85730; 86140; 86850; 86900; 86901; 87086; 93005; 93010; 93970-TC; 94640; 94761; 97116-GP; 97162-GP; 99285-25